=== PATIENT | female | born 1935 | race Caucasian/White ===

== ENCOUNTER → 2017-01-28 | Outpatient (CLI) | payer MEDICARE ==
--- NOTE | 2017-01-28 16:05 | CT ---
EXAMINATION TYPE: CT facial bones wo con DATE OF EXAM: 01/28/2017 3:47 PM COMPARISON: NONE HISTORY: Patient complains of fall hitting right side of face. Patient has multiple contusions from jaw to forehead. Patient has laceration of her eyelid. CT DLP: 763 mGycm Automated exposure control for dose reduction was used. TECHNIQUE: CT scan of the sinuses is performed without contrast, axial images are obtained, coronal r eformatted images are also reviewed. FINDINGS: The paranasal sinuses including the frontal, ethmoid, sphenoid, and maxillary sinuses bila terally are well-aerated, only minimal inflammatory change present in the right maxillary sinus great er than left. The ostiomeatal complex is patent bilaterally on the coronal images. Visualized portion of mastoid air cells show no abnormal opacification. The globes are intact bilate rally. Right frontal cephalohematoma is present. Cortical atrophy noted within the brain. Ecchymosis or edema thought present over the frontal scalp and face. IMPRESSION: No depressed or displaced fracture is evident. Cephalohematoma. Mild maxillary sinus dise ase. Orbits appear intact.
== END | disposition home or self-care (01) ==
LOC: RADCTMAIN 15:28
PROVIDERS: ATTEND Ophthalmology
DX: S06.2X9A Diffuse traumatic brain injury with loss of consciousness of unspecified duration, initial encounter (principal)
CPT/HCPCS: 70486

== ENCOUNTER 2017-01-29 06:47 | Day surgery (SDC) | payer MEDICARE ==
[2017-01-29 07:59] VITALS: BMI 29.4
[2017-01-29] MEDS ORDERED: HYDROmorphone 1 MG/ML 1 ML SYRINGE IVP PRN (08:01)
[2017-01-29] MEDS ORDERED: ONDANSETRON 4 MG/2 ML VIAL IVP ONE (08:01)
[2017-01-29] MEDS ORDERED: LACTATED RINGERS 1,000 ML IV SCH (08:01)
[2017-01-29 08:24] VITALS: RESP 16; TEMP 97.5
[2017-01-29] MEDS ORDERED: LIDOCAINE 1% 20 ML VIAL (10MG/ML) FOR IV START INTRADERMA ONE (08:24)
[2017-01-29] MEDS ORDERED: MIDAZOLAM 2 MG/2 ML VIAL ONE (09:04)
[2017-01-29] MEDS ORDERED: fentaNYL (PF) 50 MCG/ML 2 ML AMP ONE (09:04)
[2017-01-29] MEDS ORDERED: LABETALOL 5 MG/ML VIAL MDV ONE (09:04)
[2017-01-29] MEDS ORDERED: BUPIVACAIN-EPI 0.25%-1:200,000 30 ML VIAL SQ ONE ×2 (09:19)
[2017-01-29] MEDS ORDERED: TETRACAINE 0.5% OPHTH DROPS 15 ML BTL RIGHT EYE ONE (09:26)
[2017-01-29] MEDS ORDERED: NEOMYCIN-POLYMYXIN-DEXAMETH OINT 3.5 GM TUBE RIGHT EYE ONE (10:28)
--- NOTE | 2017-01-29 10:32 | P.OP ---
Date of Procedure: 01/29/17 Preoperative Diagnosis: traumatic lid laceration upper & lower without canilcular involvement Postoperative Diagnosis: same Procedure(s) Performed: repair upper and lower right eye lids Implants: none Anesthesia: MAC, regional Surgeon: Bassam Paris Estimated Blood Loss (ml): 3 Pathology: none sent Condition: stable Disposition: same day Indications for Procedure: poorly functioning torn eyelids Operative Findings: no complications
[2017-01-29 11:25] VITALS: BP 155/70; PULSE 57
--- NOTE | 2017-01-30 08:00 | OP ---
DATE OF SERVICE: 01/29/2017 SURGEON: CAMILLE NOBLE MD OFFICE SPEC: PREOPERATIVE DIAGNOSIS(ES): Traumatic full thickness laceration of the right upper eyelid and full thickness lid laceration of the right lower eyelid all without canalicular involvement. POSTOPERATIVE DIAGNOSIS(ES): Traumatic full thickness laceration of the right upper eyelid and full thickness lid laceration of the right lower eyelid all without canalicular involvement. OPERATION: Repair of right upper eyelid and repair of right lower eyelid. ANESTHESIA: Local. ESTIMATED BLOOD LOSS: Less than 5 mL. SPECIMENS REMOVED: None. COMPLICATIONS: OPERATIVE FINDINGS: NARRATIVE: A patient who had fallen and struck her right brow and while falling apparently lacerated both upper and lower eyelids of the right eye apparently against a table. CT scan of the face did not reveal any damage to any of the facial bones. Examination in the clinic revealed the lower lid to be atrophic and disinserted from the lateral canthus, approximately 5 mm from the lateral canthus. The upper lid was lacerated distal to the upper punctum and this laceration was approximately 1 cm in length and was in a Y-shaped fashion. Recommendation was to proceed to surgery so that there were not any half-way problems created by the newly induced malformation of lacerated eyelids. DESCRIPTION OF PROCEDURE: Patient was brought to the operating room after obtaining the appropriate consent. She was placed on cardiac monitoring, and prepped and draped in the usual sterile manner. 0.5% tetracaine was used on the eye to anesthetize the eye itself and the upper and lower eyelids were both infiltrated with 0.25% bupivacaine and epinephrine using a 26-gauge needle on a control syringe. Once the tissues were adequately anesthetized, closer examination of the right upper eyelid was performed. There was no involvement of the levator apparatus at all in the upper laceration. The extent of the actual tarsal problem extended no more than about 3 to 5 mm but the skin itself was lacerated more superiorly. During the procedure, a 6-0 silk suture was used to approximate the lid margin using Relends line as a guide. Once this was identified, a small amount of undermining of the orbicularis gain a better access to the tarsus was performed. Four 7-0 Vicryl sutures were placed through both cut ends of the tarsus in an attempt to align them more effectively. These were all individually tied reapproximating the tarsus itself together. The lid margin suture was then passed in a vertical mattress fashion back through the Relends line and across to the opposite side of the wound so that the entrance and exit sutures were able to be tied on the same side. The Y-shaped skin laceration was then reapproximated stretching the cut tissue back into its bed matching all corresponding edges using a 6-0 nylon suture. Once this was completed, then a second 6-0 silk was passed through the lash line itself and the 6-0 silk which had previously been passed through the lid margin was then secured tightly. The suture was left long and brought across the superior eye lid to be incorporated into the suture that was through the lash line itself. Once the 6-0 at the lash line was secured all sutures were trimmed. A second examination of the underside of the conjunctiva did not reveal any suture which may have been exposed to the eyeball surface. Attention then was directed to the lateral canthal area of the same right eye and again in a similar fashion Relends line was identified and a 6-0 silk was passed through Relends line and tarsus to its matching corresponding part of the laceration on the distal side realigning the lid margin. Once this was accomplished, 3 interrupted 7-0 Vicryl sutures were passed through tarsus itself. These were all individually tied and secured bringing the edges of the cut tarsus back together. The 6-0 nylon was used to close the skin laceration again reapproximating corresponding edges of the skin and a separate 6-0 silk was passed through the lash line itself. Once again on the lid margin suture was tied and secured bringing the edge together and the suture was cut long so that when the 6-0 suture to the lash line itself was secured the lid margin suture was secured in the lash line. The previously placed corneal shell was removed from the patient's eye. The inside of the lower eyelid was examined for exposed suture mucosal side. None was identified. The eye was cleaned slightly with sponge and balanced salt solution and then the eye both inside as well as on the lash line was covered copiously with Maxitrol ointment. No patch was applied to the eye. She tolerated the procedure well. There were no complications from the procedure and she was then returned to recovery in good condition.
== END 2017-01-29 11:47 | disposition home or self-care (01) ==
LOC: OR 06:47
PROVIDERS: ATTEND Ophthalmology
DX: S01.111A Laceration without foreign body of right eyelid and periocular area, initial encounter (principal); S00.83XA Contusion of other part of head, initial encounter; W19.XXXA Unspecified fall, initial encounter; H52.13 Myopia, bilateral; I10 Essential (primary) hypertension; E78.5 Hyperlipidemia, unspecified; Z79.899 Other long term (current) drug therapy
CPT/HCPCS: 12011; J2250; J3010

== ENCOUNTER 2019-04-21 09:58 | Day surgery (SDC) | payer MEDICARE ==
[2019-04-16 14:13] VITALS: BMI 30.1
[~2019-04-21 09:58] MED LIST: LACTATED RINGERS 1,000 ML IV SCH; LIDOCAINE 1% 20 ML VIAL (10MG/ML) FOR IV START INTRADERMA PRN; MOXIFLOXACIN HCL 0.5% DROPS 3 ML BTL OP ONE; TETRACAINE 0.5% OPHTH (PF) DROPS 4 ML BTL OP ONE; TIMOLOL 0.5% OPHTH DROPS 5 ML BTL OP ONE
[2019-04-21 10:26] VITALS: TEMP 97.6
[2019-04-21] MEDS: PHENYLEPHRINE 2.5% OPHTH DRP 2ML OP NR ×3 (10:28→10:41)
[2019-04-21] MEDS: CYCLOPENTOLATE 1% OPHTH SOLN 2 ML BTL OP ONE ×3 (10:31→10:44)
[2019-04-21] MEDS ORDERED: fentaNYL (PF) 50 MCG/ML 2 ML AMP ONE (11:20)
[2019-04-21] MEDS ORDERED: MIDAZOLAM 2 MG/2 ML VIAL ONE (11:20)
[2019-04-21] MEDS ORDERED: DUOVISC KIT (GREEN BOX) INTRAOCULA ONE (11:37)
[2019-04-21] MEDS ORDERED: BALANCED SALT IRRIG SOLN COMB2 15 ML IRRIG.SOLN INTRAOCULA ONE (11:37)
[2019-04-21] MEDS ORDERED: LIDOCAINE 1% (PF) 10MG/ML VIAL INTRAARTIC ONE (11:37)
[2019-04-21] MEDS ORDERED: TRYPAN BLUE 0.06% SYRINGE 0.5 ML SYRINGE INTRAOCULA ONE (11:38)
[2019-04-21] MEDS ORDERED: EPINEPHrine (PF) 0.3 ML in BALANCED SALT IRRIG SOLN COMB2 500 ML IRRIGATION ONE (11:49)
--- NOTE | 2019-04-21 11:55 | P.OP ---
Date of Procedure: 04/21/19 Preoperative Diagnosis: NS & CS Postoperative Diagnosis: same Procedure(s) Performed: PIOL & iStent implant Implants: PCB00 21.00 & [id number] Anesthesia: MAC Surgeon: Bassam Paris Estimated Blood Loss (ml): 0 Pathology: none sent Condition: stable Disposition: same day Indications for Procedure: blurry vision and glaucoma Operative Findings: no complications
[2019-04-21 12:48] VITALS: BP 169/67; PULSE 53; RESP 18
--- NOTE | 2019-04-21 15:23 | OP ---
OPERATIVE REPORT DATE OF SURGERY: 04/21/2019. PROCEDURE: Phacoemulsification cataract, intraocular lens implant with eye stent implantation of the right eye. PREOPERATIVE DIAGNOSES: 1. Nuclear sclerosis. 2. Cortical sclerosis. 3. Primary open-angle glaucoma, moderate stage. SURGEON: Dr. Bassam Paris. ANESTHESIA: Topical. ESTIMATED BLOOD LOSS: Less than 5 mL. SPECIMEN TAKEN: None. NARRATIVE: After obtaining the appropriate consent, the patient was brought to the operating room. There she was placed on a cardiac monitoring, prepped and draped in usual sterile manner. She was approached from her right temporal side and at the 11 o'clock position an MVR blade was used to create a paracentesis port. Through this opening 1% xylocaine MPF 50-50 mix with balanced salt solution was injected into the anterior chamber. This was followed by staining of the anterior chamber tissues with tri rivas blue for 1 minute. Once this was irrigated away, Viscoat was used to stabilize the anterior chamber as well as a small amount of Viscoat placed on the patient's cornea to act as an optical inspector subassemblies. At the 9 o'clock position, a 2.5 mm keratome was used to create a self-sealing corneal flap incision. The patient was then asked to rotate approximately 45 degrees to her left. Shaina goneal prism was placed on the patient's eye and the trabecular meshwork was easily identified. A Glaukos iStent model GTS 100 mL was placed into the trabecular meshwork without difficulty. The patient was then rotated back to the normal supine position where a cystotome was introduced to begin a continuous tear capsulorrhexis which was then completed using the Utrata forceps. Hydrodissection and hydrodelineation of the lens was accomplished with balanced salt solution. Phacoemulsification lens utilizing phaco chop was accomplished in 15.73 seconds of 14% power. Additional xylocaine MPF was instilled into the anterior chamber. This was followed by removal of the remaining cortex under irrigation and aspiration along with careful polishing of the posterior capsule in the capsule vacuum mode. Provisc was then used to stabilize the capsular bag and an ZURI PCB00 21.0 diopter posterior chamber intraocular lens was then placed into the capsular bag without difficulty. The remaining viscoelastic was removed from in and around the intra-ocular lens and as well as the anterior chamber. The eye then was brought to normal intraocular pressures through the paracentesis port, well ensuring watertight integrity. She then received 2 drops of 0.5% timolol followed by 2 drops of Vigamox, was lightly patched and shielded in the usual manner. There were no complications from the procedure. She tolerated the procedure well and was returned to outpatient recovery in good condition. MMODL / LALYN: [id number] / MTDMary Kate
== END 2019-04-21 13:09 | disposition home or self-care (01) ==
LOC: OR 09:58
PROVIDERS: ATTEND Ophthalmology
DX: H25.11 Age-related nuclear cataract, right eye (principal); H40.1111 Primary open-angle glaucoma, right eye, mild stage; I25.10 Atherosclerotic heart disease of native coronary artery without angina pectoris; I10 Essential (primary) hypertension; Z79.899 Other long term (current) drug therapy; Z83.3 Family history of diabetes mellitus; Z82.49 Family history of ischemic heart disease and other diseases of the circulatory system; Z84.89 Family history of other specified conditions

== ENCOUNTER 2021-07-10 15:45 | Inpatient (IN) | payer MEDICARE ==
[2021-07-10] MEDS ORDERED: AMPICILLIN-SULBACTAM 3 GM in SODIUM CHLORIDE 0.9% 100 ML IVPB STA (17:12)
[2021-07-10] MEDS ORDERED: VANCOMYCIN IV PER PHARMACY 1 EACH MISC MISCELLANE PRN (17:12)
[2021-07-10] MEDS ORDERED: VANCOMYCIN 1,500 MG in SODIUM CHLORIDE 0.9% 250 ML IVPB STA (17:16)
[2021-07-10] MEDS ORDERED: IBUPROFEN 400 MG TAB PO PRN (17:34)
[2021-07-10] MEDS ORDERED: NALOXONE 0.4 MG/ML 1 ML VIAL IV PRN (17:34)
--- NOTE | 2021-07-10 17:34 | ED ---
Extremity Problem HPI - General Chief complaint: Extremity Problem,Nontraumatic Stated complaint: fall, foot pain Time Seen by Provider: 07/10/21 16:10 Source: patient Mode of arrival: wheelchair Limitations: no limitations - History of Present Illness Initial comments: Patient is an 86-year-old female with past medical history of hypertension, hyperlipidemia presents emergency room and as a transfer from [facility]. Patient states that for the past 3 weeks she has had a wound on her right third toe. She was ambulating when she accidentally stubbed the toe and took off the nail. She was seen in Dr. bhandari's office and was placed on Cipro. She states that she took it for 7 days without improvement in her symptoms. Patient was then placed on Augmentin for 10 days starting on the . She saw Dr. bhandari in office today who was concerned about the progression of her wound and therefore recommend that she went to the hospital for evaluation. She went and [facility] weren't x-ray was performed and demonstrated concern for o steomyelitis. Admission was recommended for failed outpatient treatment. Patient was transferred to our facility has a do not have surgical capabilities. No history of diabetes. Denies fevers, chills. Denies any numbness, tingling or weakness in the extremities. No other alleviating, precipitating or modifying factors - Related Data Home Medications Medication Instructions Recorded Confirmed Lovastatin [Mevacor] 10 mg PO HS 11/29/14 07/10/21 atenoloL [Tenormin] 25 mg PO HS 11/29/14 07/10/21 Cholecalciferol [Vitamin D3] 25 mcg PO DAILY 09/01/16 07/10/21 Allergies Allergy/AdvReac Type Severity Reaction Status Date / Time adhesive Allergy Rash/Hives Verified 07/10/21 18:01 Review of Systems ROS Statement: Those systems with pertinent positive or pertinent negative responses have been documented in the HPI. ROS Other: All systems not noted in ROS Statement are negative. Past Medical History Past Medical History: Coronary Artery Disease (CAD), Eye Disorder, Hyperlipidemia, Hypertension Additional Past Medical History / Comment(s): rt cataract,rt eye glaucoma History of Any Multi-Drug Resistant Organisms: None Reported Past Surgical History: Heart Catheterization With Stent, Joint Replacement, Orthopedic Surgery Additional Past Surgical History / Comment(s): 1997 or 1998 R carotid endartectomy in [place]. 1997 or 1998 cardiac cath with stenting in [place]. Bilateral hip replacements and total R knee,lt cataract and istent Past Anesthesia/Blood Transfusion Reactions: No Reported Reaction Additional Past Anesthesia/Blood Transfusion Reaction / Comment(s): no problems with prior blood transfusion Date of Last Stent Placement:: 1997 or 1998 in [place] Past Psychological History: No Psychological Hx Reported Past Alcohol Use History: None Reported Past Drug Use History: None Reported - Past Family History Father Family Medical History: Myocardial Infarction ([place]) Additional Family Medical History / Comment(s): Father at age 62 yrs of [place]. Mother Family Medical History: Diabetes Mellitus Additional Family Medical History / Comment(s): Mother of an impacted bowel at age 82 or 83yrs. General Exam Limitations: no limitations General appearance: alert, in no apparent distress Head exam: Present: atraumatic, normocephalic, normal inspection Eye exam: Present: normal appearance, PERRL, EOMI. Absent: scleral icterus, conjunctival injection, periorbital swelling ENT exam: Present: normal exam, mucous membranes moist Neck exam: Present: normal inspection. Absent: tenderness, meningismus, lymphadenopathy Respiratory exam: Present: normal lung sounds bilaterally. Absent: respiratory distress, wheezes, rales, rhonchi, stridor Cardiovascular Exam: Present: regular rate, normal rhythm, normal heart sounds. Absent: systolic murmur, diastolic murmur, rubs, gallop, clicks GI/Abdominal exam: Present: soft, normal bowel sounds. Absent: distended, tende rness, guarding, rebound, rigid Extremities exam: Present: tenderness, normal capillary refill, other (3rd distal digit is swollen with distal ulceration. Toe nail is absent. no active drainage. Digits 1-2, 4-5 appear normal. 2+ DP and PT pusles). Absent: pedal edema, joint swelling, calf tenderness Back exam: Present: normal inspection Neurological exam: Present: alert, oriented X3, CN II-XII intact Psychiatric exam: Present: normal affect, normal mood Skin exam: Present: warm, dry, intact, normal color. Absent: rash Course Vital Signs 07/10/21 07/10/21 07/10/21 16:06 19:01 19:25 Temperature 98.1 F Pulse Rate 69 72 Respiratory 19 18 18 Rate Blood Pressure 183/77 215/105 O2 Sat by Pulse 97 96 Oximetry 07/10/21 23:03 Temperature 98.0 F Pulse Rate 60 Respiratory 16 Rate Blood Pressure 132/53 O2 Sat by Pulse 94 L Oximetry Medical Decision Making - Medical Decision Making Upon arrival the patient was placed into room 4. A thorough history and physical exam was performed. I did review the patient's record from [facility]. The patient is failing outpatient treatment I did recommend admission. Patient was given a dose of Unasyn and Vanco in the emergency department. I did call and speak with Dr. Perez who agreed to admit the patient. I will place vascular and wound care on consult. Patient agreed to the treatment plan and she is currently awaiting a bed on the floor - Lab Data Result diagrams: 07/14/21 07:38 07/14/21 07:38 Disposition Clinical Impression: Osteomyelitis of toe of right foot Disposition: ADMITTED IP TO THIS [facility] Condition: Stable Is patient prescribed a controlled substance at d/c from ED?: No Decision to Admit Reason: Admit from EC Decision Date: 07/10/21 Decision Time: 17:33
[2021-07-10 18:35] LABS: Basophils # (A) 0.1 k/uL (0-0.2); Basophils % (A) 1 %; Eosinophils # (A) 0.2 k/uL (0-0.7); Eosinophils % (A) 3 %; HGB 14.2 gm/dL (11.4-16.0); Hypochromasia Slight; Lymphocytes % (A) 25 %; MCH 29.7 pg (25.0-35.0); MCHC 33.1 g/dL (31.0-37.0); MCV 89.7 fL (80.0-100.0); Mean Platelet Volume 7.8; Monocytes # (A) 0.4 k/uL (0-1.0); Monocytes % (A) 5 %; Neutrophils # (A) 4.9 k/uL (1.3-7.7); Neutrophils % (A) 63 %; Platelet Count 381 k/uL (150-450); RBC 4.79 m/uL (3.80-5.40); RDW 14.4 % (11.5-15.5); WBC 7.8 k/uL (3.8-10.6)
[2021-07-10 18:44] LABS: ALT 12 U/L (4-34); AST 16 U/L (14-36); African American GFR (CKD) >90 (>60 ml/min/1.73 sqM); Albumin 3.9 g/dL (3.5-5.0); Alkaline Phosphatase 88 U/L (38-126); Anion Gap 9 mmol/L; Blood Urea Nitrogen 11 mg/dL (7-17); Calcium 9.8 mg/dL (8.4-10.2); Carbon Dioxide 25 mmol/L (22-30); Chloride 101 mmol/L (98-107); Glucose 372 mg/dL (74-99); Non-African American GFR(CKD) >90 (>60 ml/min/1.73 sqM); Potassium 4.1 mmol/L (3.5-5.1); Sodium 135 mmol/L (137-145); Total Bilirubin 0.5 mg/dL (0.2-1.3); Total Protein 6.7 g/dL (6.3-8.2)
[2021-07-10] MEDS ORDERED: atenoloL 25 MG TAB PO STA (19:08)
[2021-07-10] MEDS: ATORVASTATIN 10 MG TAB PO SCH (19:22)
[2021-07-11] MEDS: hydrALAZINE HCL 20 MG/ML 1 ML VIAL IVP PRN ×3 (02:08→16:37)
[2021-07-11] MEDS: VANCOMYCIN 1,500 MG in SODIUM CHLORIDE 0.9% 250 ML IVPB SCH ×2 (05:34→17:44)
[2021-07-11 09:09] LABS: Basophils # (A) 0.07 X 10*3/uL (0.00-0.10); Basophils % (A) 0.9 %; Eosinophils # (A) 0.26 X 10*3/uL (0.04-0.35); Eosinophils % (A) 3.4 %; HCT 39.2 % (37.2-46.3); HGB 12.7 g/dL (12.0-15.0); Lymphocytes # (A) 1.59 X 10*3/uL (0.90-5.00); Lymphocytes % (A) 21.1 %; MCH 27.6 pg (27.0-32.0); MCHC 32.4 g/dL (32.0-37.0); MCV 85.2 fL (80.0-97.0); Monocytes # (A) 0.57 X 10*3/uL (0.20-1.00); Monocytes % (A) 7.6 %; Neutrophils # (A) 5.03 X 10*3/uL (1.80-7.70); Neutrophils % (A) 66.7 %; Platelet Count 381 X 10*3/uL (140-440); RDW 13.2 % (11.5-14.5); WBC 7.54 X 10*3/uL (4.50-10.00)
--- NOTE | 2021-07-11 09:54 | P.GSCN ---
History of Present Illness Consult date: 07/11/21 Reason for Consult: right 3rd toe osteomyelitis Requesting physician: Sumaya Harmon History of present illness: This is a 86-year-old female who was a transfer from [facility]. The patient states she injured her toe 3 weeks ago on her right foot which caused a blood blister and subsequently lost her toenail on her right third toe. She had seen her primary care physician who started her on antibiotics which she completed. She was told to go to the emergency department for further evaluation and according to the emergency department notes x-rays were done and showing osteomyelitis of the second and third toe. Records are not available at this time and are being requested. The patient denies any foul odor, fevers, or chills. States she has been on both Cipro and Augmentin. She was transferred to this hospital for vascular surgical evaluation. Patient states she does not have much pain in that toe. She has no previous history of peripheral arterial disease, she is a nonsmoker and never smoked, denies any diabetes. Her past medical history includes coronary artery disease status post stent, hyperlipidemia, hypertension, and glaucoma. She is denying any shortness of breath, chest pain, abdominal pain or leg pain. She states that she does have pain on the bottom of her right foot that she had an injury to the tendon and it is still painful and swollen. Review of Systems A 14 point review of systems was completed, all pertinent positives and negatives as stated in the HPI Past Medical History Past Medical History: Coronary Artery Disease (CAD), Eye Disorder, Hyperlipidemia, Hypertension Additional Past Medical History / Comment(s): rt cataract,rt eye glaucoma History of Any Multi-Drug Resistant Organisms: None Reported Past Surgical History: Heart Catheterization With Stent, Joint Replacement, Orthopedic Surgery Additional Past Surgical History / Comment(s): 1997 or 1998 R carotid endartectomy in [place]. 1997 or 1998 cardiac cath with stenting in [place]. Bilateral hip replacements and total R knee,lt cataract and istent Past Anesthesia/Blood Transfusion Reactions: No Reported Reaction Additional Past Anesthesia/Blood Transfusion Reaction / Comm: no problems with prior blood transfusion Date of Last Stent Placement:: 1997 or 1998 in [place] Past Psychological History: No Psychological Hx Reported Past Alcohol Use History: None Reported Past Drug Use History: None Reported - Past Family History Father Family Medical History: Myocardial Infarction ([place]) Additional Family Medical History / Comment(s): Father at age 62 yrs of [place]. Mother Family Medical History: Diabetes Mellitus Additional Family Medical History / Comment(s): Mother of an impacted bowel at age 82 or 83yrs. Medications and Allergies Home Medications Medication Instructions Recorded Confirmed Type Lovastatin [Mevacor] 10 mg PO HS 11/29/14 07/10/21 History atenoloL [Tenormin] 25 mg PO HS 11/29/14 07/10/21 History Cholecalciferol [Vitamin D3] 25 mcg PO DAILY 09/01/16 07/10/21 History Allergies Allergy/AdvReac Type Severity Reaction Status Date / Time adhesive Allergy Rash/Hives Verified 07/10/21 18:01 Surgical - Exam Vital Signs Temp Pulse Resp BP Pulse Ox 98.1 F 69 19 183/77 97 07/10/21 16:06 07/10/21 16:06 07/10/21 16:06 07/10/21 16:06 07/10/21 16:06 General appearance: The patient is alert, oriented, in no acute distress. HET: Head is normocephalic and atraumatic. Pupils are equal and reactive. Neck: Supple without lymphadenopathy. Trachea midline. Heart: S1 S2. Regular rate and rhythm. Lungs: Clear to auscultation. Abdomen: Soft, nontender, nondistended. Extremities: Left lower extremity with palpable dorsalis pedis pulse, no edema. Right lower extremity with +2 pitting pedal edema, erythema to the dorsal aspect up to the mid foot, third toe with wound to distal aspect, no drainage or foul odor noted Neurological: No focal deficits. Strength and sensation are grossly intact. Results - Labs 07/11/21 05:27 07/11/21 05:27 Abnormal Lab Results - Last 24 Hours (Table) 07/10/21 Range/Units 18:22 Sodium 135 L (137-145) mmol/L Creatinine 0.44 L (0.52-1.04) mg/dL Glucose 372 H (74-99) mg/dL Diabetes panel 07/10/21 Range/Units 18:22 Sodium 135 L (137-145) mmol/L Potassium 4.1 (3.5-5.1) mmol/L Chloride 101 (98-107) mmol/L Carbon Dioxide 25 (22-30) mmol/L BUN 11 (7-17) mg/dL Creatinine 0.44 L (0.52-1.04) mg/dL Glucose 372 H (74-99) mg/dL Calcium 9.8 (8.4-10.2) mg/dL AST 16 (14-36) U/L ALT 12 (4-34) U/L Alkaline Phosphatase 88 (38-126) U/L Total Protein 6.7 (6.3-8.2) g/dL Albumin 3.9 (3.5-5.0) g/dL Calcium panel 07/10/21 Range/Units 18:22 Calcium 9.8 (8.4-10.2) mg/dL Albumin 3.9 (3.5-5.0) g/dL Pituitary panel 07/10/21 Range/Units 18:22 Sodium 135 L (137-145) mmol/L Potassium 4.1 (3.5-5.1) mmol/L Chloride 101 (98-107) mmol/L Carbon Dioxide 25 (22-30) mmol/L BUN 11 (7-17) mg/dL Creatinine 0.44 L (0.52-1.04) mg/dL Glucose 372 H (74-99) mg/dL Calcium 9.8 (8.4-10.2) mg/dL Adrenal panel 07/10/21 Range/Units 18:22 Sodium 135 L (137-145) mmol/L Potassium 4.1 (3.5-5.1) mmol/L Chloride 101 (98-107) mmol/L Carbon Dioxide 25 (22-30) mmol/L BUN 11 (7-17) mg/dL Creatinine 0.44 L (0.52-1.04) mg/dL Glucose 372 H (74-99) mg/dL Calcium 9.8 (8.4-10.2) mg/dL Total Bilirubin 0.5 (0.2-1.3) mg/dL AST 16 (14-36) U/L ALT 12 (4-34) U/L Alkaline Phosphatase 88 (38-126) U/L Total Protein 6.7 (6.3-8.2) g/dL Albumin 3.9 (3.5-5.0) g/dL Assessment and Plan Assessment: 1. Nonhealing wound to third toe, right foot with possible osteomyelitis 2. Failed outpatient antibiotics 3. History of coronary artery disease status post stenting 4. History hypertension 5. History hyperlipidemia Plan: 1. Nothing by mouth after midnight 2. Consult infectious disease for antibiotic therapy 3. Patient will be scheduled for right foot third toe possible second toe debridement with deep tissue cultures tomorrow 4. Lower extremity arterial duplex ordered Thank you for this consultation and allowing us take part in the plan of care of your patient during her hospital stay. The impression and plan of care has been dictated as directed. I performed a history and examination of this patient, discussed the same with the dictator. I agree with the dictator's note ,documented as a scribe. Any additional findings or plans will be noted.
[2021-07-11 10:30] LABS: African American GFR (CKD) 95.7 (60.0-200.0); Anion Gap 8.3 mmol/L (4.00-12.00); BUN/Creat Ratio 18.33 Ratio (12.00-20.00); Calcium 9.6 mg/dL (8.7-10.3); Carbon Dioxide 26.7 mmol/L (21.6-31.8); Non-African American GFR(CKD) 82.5 (60.0-200.0); Potassium 3.9 mmol/L (3.5-5.5)
[2021-07-11 12:43] LABS: Glucose,Whole Blood 407 mg/dL (75-99)
[2021-07-11] MEDS: INSULIN ASPART (NovoLOG) 100 UNIT/ML VIAL SQ SCH ×3 (12:54→20:44)
[2021-07-11] MEDS ORDERED: INSULIN ASPART (NovoLOG) 100 UNIT/ML VIAL SQ ONE (13:00)
--- NOTE | 2021-07-11 13:48 | P.HPIM ---
History of Present Illness H&P Date: 07/11/21 Chief Complaint: Osteomyelitis This is an 86-year-old female patient of Dr. Hunt. Patient presented as a transfer from [facility] with concerns of osteomyelitis to her right third toe. Patient reports that she was ambulating when she had recently stopped her toe. Patient reports that she developed a huge blood blister and that her toenail fell off. Patient was seen in her PIPs office and was put on oral Cipro but symptoms did not improve. Patient returned her PCP who recommended she be evaluated in ER. X-ray was completed and [facility] showing ostial mellitus of the second and third toe. Patient has past medical history of hypertension and hyperlipidemia. Patient denies history of diabetes mellitus blood sugar was elevated at 372 upon admission. Will start patient on sliding scale coverage in order hemoglobin A1c patient also started on vancomycin and Unasyn in ER. Surgical services and infectious the service is consulted. Blood cultures ordered. At this time patient is resting comfortably in bed. Patient denies neck and pain to foot. Patient denies any chest pain or shortness of breath. Patient denies nausea vomiting or diarrhea Review of Systems please refer to HPI is unremarkable Past Medical History Past Medical History: Coronary Artery Disease (CAD), Eye Disorder, Hyperlipidemia, Hypertension Additional Past Medical History / Comment(s): rt cataract,rt eye glaucoma History of Any Multi-Drug Resistant Organisms: None Reported Past Surgical History: Heart Catheterization With Stent, Joint Replacement, Orthopedic Surgery Additional Past Surgical History / Comment(s): 1997 or 1998 R carotid endartectomy in [place]. 1997 or 1998 cardiac cath with stenting in [place]. Bilateral hip replacements and total R knee,lt cataract and istent Past Anesthesia/Blood Transfusion Reactions: No Reported Reaction Additional Past Anesthesia/Blood Transfusion Reaction / Comment(s): no problems with prior blood transfusion Date of Last Stent Placement:: 1997 or 1998 in [place] Past Psychological History: No Psychological Hx Reported Past Alcohol Use History: None Reported Past Drug Use History: None Reported - Past Family History Father Family Medical History: Myocardial Infarction ([place]) Additional Family Medical History / Comment(s): Father at age 62 yrs of [place]. Mother Family Medical History: Diabetes Mellitus Additional Family Medical History / Comment(s): Mother of an impacted bowel at age 82 or 83yrs. Medications and Allergies Home Medications Medication Instructions Recorded Confirmed Type Lovastatin [Mevacor] 10 mg PO HS 11/29/14 07/10/21 History atenoloL [Tenormin] 25 mg PO HS 11/29/14 07/10/21 History Cholecalciferol [Vitamin D3] 25 mcg PO DAILY 09/01/16 07/10/21 History Allergies Allergy/AdvReac Type Severity Reaction Status Date / Time adhesive Allergy Rash/Hives Verified 07/10/21 18:01 Physical Exam Vitals: Vital Signs Temp Pulse Pulse Resp BP BP Pulse Ox 07/11/21 09:19 97.8 F 66 16 184/74 96 07/11/21 08:27 64 184/74 07/11/21 02:00 98.2 F 64 14 177/79 94 L 07/11/21 00:06 98.3 F 62 18 149/53 95 07/10/21 23:03 98.0 F 60 16 132/53 94 L 07/10/21 19:25 18 07/10/21 19:01 72 18 215/105 96 07/10/21 16:06 98.1 F 69 19 183/77 97 Intake and Output 07/10/21 07/11/21 07/11/21 22:59 06:59 14:59 Intake Total 300 Balance 300 Intake: Oral 300 Other: Voiding Method Toilet Weight 77.111 kg Head normocephalic Neck supple Lungs clear to auscultation bilaterally no wheezing or crackles Heart regular rate and rhythm S1-S2, no rub or gallop Abdomen is soft nontender nondistended positive bowel sounds no hepatosplenomegaly Extremities no edema. Right third toe wound nail absent bloody drainage noted Neuro alert and orientated to 3 Results CBC & Chem 7: 07/11/21 05:27 07/11/21 05:27 Labs: Abnormal Lab Results - Last 24 Hours (Table) 07/10/21 07/11/21 07/11/21 Range/Units 18:22 05:27 12:34 Sodium 135 L (137-145) mmol/L Creatinine 0.44 L (0.52-1.04) mg/dL Glucose 372 H 236 H (74-99) mg/dL POC Glucose (mg/dL) 407 H (75-99) mg/dL Thrombosis Risk Factor Assmnt - Choose All That Apply Any of the Below Risk Factors Present?: No Each Risk Factor Represents 3 Points: Age 75 years or older Other congenital or acquired thrombophilia - If yes, enter type in comment: No Thrombosis Risk Factor Assessment Total Risk Factor Score: 3 Thrombosis Risk Factor Assessment Level: Moderate Risk Assessment and Plan Assessment: 1. Osteomyelitis to second and third toe. X-ray was completed at outside hospital. Infectious disease and vascular surgery consulted. Patient currently maintained on vancomycin and Unasyn. Blood cultures ordered 2. Hyperglycemia. Patient started on sliding scale coverage and hemoglobin A1c ordered. 3. History of hyperlipidemia. Maintained on statin 4. History of essential hypertension 5. History of coronary artery disease DVT prophylaxis Lovenox. GI prophylaxis Protonix Vascular surgery and infectious disease service is consulted Maintained on IV vancomycin and Unasyn Blood cultures ordered Hemoglobin A1c ordered Time with Patient: Greater than 30 (Greater than 60% of the total time spent in counseling and coordination of care)
[2021-07-11] MEDS ORDERED: LIDOCAINE 1% (10MG/ML) FOR IV START INTRADERMA PRN (16:20)
[2021-07-11] MEDS: ACETAMINOPHEN TAB 325 MG TAB PO PRN (16:41)
[2021-07-11 17:00] LABS: Glucose,Whole Blood 132 mg/dL (75-99)
[2021-07-11] MEDS: NYSTATIN 100,000UNIT/GM CREAM 30 GM TUBE TOPICAL SCH ×2 (17:47→23:09)
[2021-07-11 19:22] LABS: Hemoglobin A1C 11.2 % (4.0-6.0)
[2021-07-11 20:26] LABS: Glucose,Whole Blood 249 mg/dL (75-99)
[2021-07-11] MEDS: ATORVASTATIN 10 MG TAB PO SCH (20:44)
[2021-07-11] MEDS: atenoloL 25 MG TAB PO SCH (20:44)
[2021-07-12] MEDS ORDERED: VANCOMYCIN TROUGH DUE 1 EACH MISC MISCELLANE ONE (05:00)
[2021-07-12] MEDS ORDERED: DEXAMETHASONE SOD PHOSPHATE 4 MG/ML 1 ML VIAL IV ONE (06:00)
[2021-07-12] MEDS ORDERED: ONDANSETRON 4 MG/2 ML VIAL IVP ONE (06:00)
[2021-07-12] MEDS: LACTATED RINGERS 1,000 ML IV SCH ×2 (06:10→17:52)
--- NOTE | 2021-07-12 06:10 | P.CONS ---
History of Present Illness - Reason for Consult Consult date: 07/11/21 right 3rd toe osteomyelitis Requesting physician: Tiarra Dominguez - Chief Complaint right 3rd toe non heaing wound x weeks - History of Present Illness History of present illness : Patient is 86-year-old female who did have an injury to her right third toe 1 3 weeks ago patient did mention she did have a blood blister and subsequently diagnosed her toenail on the third toe patient has been seen by her primary care physician and has been treated with a course of antibiotics however the patient continued to have worsening of her right third toe with nonhealing of the wound with more swelling and did have some redness no foul-smelling drainage no patient did have underlying neuropathy and consistently significant pain to the right third toe area patient went to [facility] nausea worsening of right third toe patient apparently did have x-rays there is some history of osteomyelitis of the right third toe for the patient was transferred to the [facility] for further evaluation on arrival to the ER patient was afebrile patient did have a normal white count kidney function was normal patient has been evaluated by vascular surgery with the plan for possible partial amputation of the right third toe patient was started on vancomycin infectious disease was consulted for further management of antibiotic therapy Review of system: CONSTITUTIONAL: Positive for weakness however denies high-grade fever. EYES: No complaint. ENT: No complaint. RESPIRATORY: No complaint. CARDIOVASCULAR: No complaint. GENITOURINARY: No complaint. GASTROINTESTINAL: No complaint. MUSCULOSKELETAL: As per history of present illness. INTEGUMENTARY: As per history of present illness. PSYCHOLOGIC: No complaint. ENDOCRINE: No complaint. NEUROLOGIC: No complaint. Past medical history : Reviewed, documented below Past surgical history : Reviewed, documented below Social history: Reviewed, documented below Medications: Reviewed, as documented below GENERAL DESCRIPTION: Elderly female lying in bed, no distress. No tachypnea or accessory muscle of respiration use. HEENT: Shows Pallor , no scleral icterus. Oral mucous membrane is dry. NECK: Trachea central, no thyromegaly. LUNGS: Unlabored breathing. Clear to auscultation anteriorly. No wheeze or crackle. HEART: S1, S2, regular rate and rhythm. ABDOMEN: Soft, no tenderness , guarding or rigidity EXTREMITIES: No edema of feet. Right third toe is swollen minimal redness with the wound on the tip no slough tissue or foul-smelling drainage SKIN: No rash, no masses palpable. NEUROLOGICAL: The patient is awake, alert, oriented x3, mood and affect normal. LABS AND RADIOLOGY: Reviewed results see below Assessment : Patient with right third toe tip traumatic wound now with abnormal ity seen on the x-ray at the outside facility concerning for osteomyelitis in this patient who did have diffuse swelling minimal redness and nonhealing wound that seemed to have failed to respond to outpatient ciprofloxacin and Augmentin therapy and concern for possible community associated MRSA Plan: 1-await partial amputation of the right third toe and deep cultures as per vascular surgery 2-vancomycin pharmacy to dose her with a target trough of 15 while watching her kidney function and Vanco trough closely. 3-Aquacel silver dressing to the wound change every 48 hour We will follow on clinical condition and cultures to further adjust medication if needed Thank you for this consultation we will follow the patient along with you Past Medical History Past Medical History: Coronary Artery Disease (CAD), Eye Disorder, Hyperlipidemia, Hypertension Additional Past Medical History / Comment(s): rt cataract,rt eye glaucoma History of Any Multi-Drug Resistant Organisms: None Reported Past Surgical History: Heart Catheterization With Stent, Joint Replacement, Orthopedic Surgery Additional Past Surgical History / Comment(s): 1997 or 1998 R carotid endartectomy in [place]. 1997 or 1998 cardiac cath with stenting in [place]. Bilateral hip replacements and total R knee,lt cataract and istent Past Anesthesia/Blood Transfusion Reactions: No Reported Reaction Additional Past Anesthesia/Blood Transfusion Reaction / Comm: no problems with prior blood transfusion Date of Last Stent Placement:: 1997 or 1998 in [place] Past Psychological History: No Psychological Hx Reported Past Alcohol Use History: None Reported Past Drug Use History: None Reported - Past Family History Father Family Medical History: Myocardial Infarction ([place]) Additional Family Medical History / Comment(s): Father at age 62 yrs of [place]. Mother Family Medical History: Diabetes Mellitus Additional Family Medical History / Comment(s): Mother of an impacted bowel at age 82 or 83yrs. Medications and Allergies Home Medications Medication Instructions Recorded Confirmed Type Lovastatin [Mevacor] 10 mg PO HS 11/29/14 07/10/21 History atenoloL [Tenormin] 25 mg PO HS 11/29/14 07/10/21 History Cholecalciferol [Vitamin D3 (25 25 mcg PO DAILY 09/01/16 07/10/21 History Mcg = 1000 Iu)] Amoxic-Pot Clav 875-125Mg 1 tab PO Q12HR 14 Days #28 tab 07/16/21 Rx [Augmentin 875-125] Nystatin 100,000Unit/gm Cream 1 applic TOPICAL TID gm 07/17/21 Rx [Mycostatin Cream] Pioglitazone [Actos] 30 mg PO DAILY tab 07/17/21 Rx metFORMIN HCL [Glucophage] 500 mg PO BID-W/MEALS tab 07/17/21 Rx Allergies Allergy/AdvReac Type Severity Reaction Status Date / Time adhesive Allergy Rash/Hives Verified 07/10/21 18:01 Physical Exam Vitals: Vital Signs Temp Pulse Pulse Resp BP BP Pulse Ox 07/11/21 09:19 97.8 F 66 16 184/74 96 07/11/21 08:27 64 184/74 07/11/21 02:00 98.2 F 64 14 177/79 94 L 07/11/21 00:06 98.3 F 62 18 149/53 95 07/10/21 23:03 98.0 F 60 16 132/53 94 L 07/10/21 19:25 18 07/10/21 19:01 72 18 215/105 96 07/10/21 16:06 98.1 F 69 19 183/77 97 Intake and Output 07/10/21 07/11/21 07/11/21 22:59 06:59 14:59 Intake Total 300 Balance 300 Intake: Oral 300 Other: Voiding Method Toilet Weight 77.111 kg Results CBC & Chem 7: 07/17/21 05:26 07/17/21 05:26 Labs: Abnormal Lab Results - Last 24 Hours (Table) 07/10/21 07/11/21 07/11/21 Range/Units 18:22 05:27 12:34 Sodium 135 L (137-145) mmol/L Creatinine 0.44 L (0.52-1.04) mg/dL Glucose 372 H 236 H (74-99) mg/dL POC Glucose (mg/dL) 407 H (75-99) mg/dL
[2021-07-12] MEDS ORDERED: fentaNYL (PF) 50 MCG/ML 2 ML AMP IV PRN (07:00)
[2021-07-12] MEDS ORDERED: HYDROmorphone 0.5 MG/0.5 ML SYRINGE IVP PRN ×2 (07:00→10:47)
[2021-07-12] MEDS: VANCOMYCIN 1,500 MG in SODIUM CHLORIDE 0.9% 250 ML IVPB SCH ×2 (07:05→18:04)
[2021-07-12 07:14] LABS: Glucose,Whole Blood 223 mg/dL (75-99)
[2021-07-12] MEDS: INSULIN ASPART (NovoLOG) 100 UNIT/ML VIAL SQ SCH ×4 (07:39→21:45)
[2021-07-12] MEDS: PANTOPRAZOLE 40 MG TABLET PO SCH (07:39)
[2021-07-12 08:04] LABS: ALT 8 U/L (4-34); AST 15 U/L (14-36); African American GFR (CKD) >90 (>60 ml/min/1.73 sqM); Albumin 2.8 g/dL (3.5-5.0); Albumin/Globulin Ratio 1.1; Alkaline Phosphatase 69 U/L (38-126); Anion Gap 6 mmol/L; Blood Urea Nitrogen 14 mg/dL (7-17); Calcium 8.9 mg/dL (8.4-10.2); Carbon Dioxide 24 mmol/L (22-30); Chloride 105 mmol/L (98-107); Globulin 2.6 g/dL; Glucose 252 mg/dL (74-99); Non-African American GFR(CKD) >90 (>60 ml/min/1.73 sqM); Potassium 3.8 mmol/L (3.5-5.1); Sodium 135 mmol/L (137-145); Total Bilirubin 0.6 mg/dL (0.2-1.3); Total Protein 5.4 g/dL (6.3-8.2)
[2021-07-12] MEDS: ENOXAPARIN 40 MG/0.4 ML SYRINGE SQ SCH (08:09)
--- NOTE | 2021-07-12 09:13 | XR ---
EXAMINATION TYPE: XR foot complete RT DATE OF EXAM: 07/12/2021 CLINICAL HISTORY: Nonhealing wound right third toe. Pain and swelling. TECHNIQUE: Frontal, lateral, and oblique images of the right foot are obtained. COMPARISON: Outside right foot x-ray June 30, 2021 FINDINGS: There is interval near complete destruction of the third distal phalanx. There is new luce ncy and bony destruction of the third middle phalanx. Relative sparing of the proximal phalanx. Some flexion in the toes makes evaluation suboptimal. No obvious osseous destruction in the fourth an d fifth toes. Persistent deformity of the second distal phalanx without new obstruction clearly seen. Persistent focal soft tissue swelling greatest in the second and third toes. Moderate narrowing and sclerosis at the base of the Lisfranc joints seen best on lateral view. Mild-t o-moderate diffuse soft tissue swelling noted. IMPRESSION: There is radiographic confirmation of acute osteomyelitis involving third middle and dis west phalanx as detailed above. A Yellow level critical message alert has been initiated for Tiarra Dominguez via the [facility] Critical Results System on 07/12/2021 9:11 AM. This message alert has been sent to Tiarra Dominguez v ia the preferences provided by the clinician for the receipt of Radiology Critical Findings. Message ID [id number].
[2021-07-12 09:46] LABS: Basophils # (A) 0.07 X 10*3/uL (0.00-0.10); Eosinophils # (A) 0.29 X 10*3/uL (0.04-0.35); HCT 37.3 % (37.2-46.3); Lymphocytes # (A) 1.75 X 10*3/uL (0.90-5.00); Lymphocytes % (A) 24.1 %; MCH 27.8 pg (27.0-32.0); MCHC 32.2 g/dL (32.0-37.0); MCV 86.3 fL (80.0-97.0); Mean Platelet Volume 10.3 fL (9.5-12.2); Monocytes # (A) 0.61 X 10*3/uL (0.20-1.00); Monocytes % (A) 8.4 %; Neutrophils % (A) 61.9 %; Platelet Count 362 X 10*3/uL (140-440); RBC 4.32 X 10*6/uL (4.10-5.20); RDW 13.3 % (11.5-14.5); WBC 7.26 X 10*3/uL (4.50-10.00)
[2021-07-12] MEDS: NYSTATIN 100,000UNIT/GM CREAM 30 GM TUBE TOPICAL SCH ×3 (10:30→21:50)
--- NOTE | 2021-07-12 11:15 | P.CONS ---
History of Present Illness - Reason for Consult Consult date: 07/12/21 wound care - History of Present Illness His is an 86-year-old female who was transferred from [facility] being seen on 4 cells for a nonhealing ulceration with positive osteo-to the right third toe. Patient was seen by her primary care physician who started her on antibiotics which she completed. However the toe had not improved and she went to the emergency room. At that time an x-ray showed osteomyelitis and she was transferred to [facility]. The patient denies any foul odor, fever or chills. She has completed both Cipro and Augmentin courses. Patient is a lifelong nonsmoker. Denies diabetes. Her past medical history includes coronary artery disease status post stent, hyperlipidemia, hypertension, and Glaucoma. The right third toe distal aspect has an ulceration measuring approximately 1 x 1.7 x 0.1 cm. There is minimal to no granulation seen, periwound is flaking off. There is a eschar distal portion. Review Of Systems: Constitutional: No fever, no chills, no night sweats. No weight change. No weakness, fatigue or lethargy. No daytime sleepiness. Integumentary:reports wounds, no lesions. No rash or pruritus. No unusual bruising. No change in hair or nails. Physical exam: General Appearance: Alert, cooperative, no distress, appears stated age. Skin: See HPI all other Skin color, texture, tugor normal, no rashes or lesions. Neurologic: Alert oriented x3 Assessment: 1. Nonhealing ulceration to third toe with bone involvement with necrosis 2. Osteo-myelitis Plan: 1. Discussed with patient options for continued outpatient wound care treatment including hyperbaric oxygen therapy. No dressings ordered at this time until after surgical intervention. Thank you for the consultation any questions please contact the wound care center DNP note has been reviewed and discussed with Dr. Solis and the impression and plan of care has been directed as dictated. Past Medical History Past Medical History: Coronary Artery Disease (CAD), Eye Disorder, Hyperlipidemia, Hypertension Additional Past Medical History / Comment(s): rt cataract,rt eye glaucoma History of Any Multi-Drug Resistant Organisms: None Reported Past Surgical History: Heart Catheterization With Stent, Joint Replacement, Orthopedic Surgery Additional Past Surgical History / Comment(s): 1997 or 1998 R carotid endartectomy in [place]. 1997 or 1998 cardiac cath with stenting in [place]. Bilateral hip replacements and total R knee,lt cataract and istent Past Anesthesia/Blood Transfusion Reactions: No Reported Reaction Additional Past Anesthesia/Blood Transfusion Reaction / Comm: no problems with prior blood transfusion Date of Last Stent Placement:: 1997 or 1998 in [place] Past Psychological History: No Psychological Hx Reported Past Alcohol Use History: None Reported Past Drug Use History: None Reported - Past Family History Father Family Medical History: Myocardial Infarction ([place]) Additional Family Medical History / Comment(s): Father at age 62 yrs of [place]. Mother Family Medical History: Diabetes Mellitus Additional Family Medical History / Comment(s): Mother of an impacted bowel at age 82 or 83yrs. Medications and Allergies Home Medications Medication Instructions Recorded Confirmed Type Lovastatin [Mevacor] 10 mg PO HS 11/29/14 07/10/21 History atenoloL [Tenormin] 25 mg PO HS 11/29/14 07/10/21 History Cholecalciferol [Vitamin D3] 25 mcg PO DAILY 09/01/16 07/10/21 History Allergies Allergy/AdvReac Type Severity Reaction Status Date / Time adhesive Allergy Rash/Hives Verified 07/10/21 18:01 Physical Exam Vitals: Vital Signs Temp Pulse Resp BP Pulse Ox 07/12/21 08:00 98.3 F 60 16 184/78 95 07/12/21 02:00 98.3 F 62 170/73 95 07/11/21 19:30 97.8 F 80 14 155/80 93 L 07/11/21 17:43 76 151/57 07/11/21 16:36 61 216/90 96 07/11/21 14:00 97.5 F L 60 18 182/77 96 Intake and Output 07/11/21 07/12/21 07/12/21 22:59 06:59 14:59 Intake Total 400 Balance 400 Intake: Oral 400 Other: # Voids 1 4 Results CBC & Chem 7: 07/12/21 05:24 07/12/21 05:24 Labs: Abnormal Lab Results - Last 24 Hours (Table) 07/11/21 07/11/21 07/11/21 Range/Units 05:27 12:34 16:59 Sodium (137-145) mmol/L Creatinine (0.52-1.04) mg/dL Glucose (74-99) mg/dL POC Glucose (mg/dL) 407 H 132 H (75-99) mg/dL Hemoglobin A1c 11.2 H (4.0-6.0) % Total Protein (6.3-8.2) g/dL Albumin (3.5-5.0) g/dL 07/11/21 07/12/21 07/12/21 Range/Units 20:25 05:24 07:09 Sodium 135 L (137-145) mmol/L Creatinine 0.46 L (0.52-1.04) mg/dL Glucose 252 H (74-99) mg/dL POC Glucose (mg/dL) 249 H 223 H (75-99) mg/dL Hemoglobin A1c (4.0-6.0) % Total Protein 5.4 L (6.3-8.2) g/dL Albumin 2.8 L (3.5-5.0) g/dL Microbiology - Last 24 Hours (Table) 07/10/21 18:20 Blood Culture - Preliminary Blood No Growth after 24 hours 07/10/21 18:00 Blood Culture - Preliminary Blood No Growth after 24 hours Assessment and Plan (1) Non-healing ulcer of right foot with necrosis of bone Current Visit: Yes Status: Acute Code(s): L97.514 - NON-PRS CHRONIC ULCER OTH PRT RIGHT FOOT W NECROSIS OF BONE SNOMED Code(s): 012454621 (2) Osteomyelitis Current Visit: Yes Status: Acute Code(s): M86.9 - OSTEOMYELITIS, UNSPECIFIED SNOMED Code(s): 32336492
[2021-07-12 11:28] LABS: Glucose,Whole Blood 170 mg/dL (75-99)
[2021-07-12] MEDS ORDERED: IV FLUID CONTINUATION 1,000 ML IV ONE (11:36)
[2021-07-12] MEDS ORDERED: KETAMINE 10 MG/ML 20 ML VIAL ONE (13:17)
[2021-07-12] MEDS ORDERED: PROPOFOL 10 MG/ML 20 ML VIAL IV ONE (13:17)
[2021-07-12] MEDS ORDERED: MIDAZOLAM 2 MG/2 ML VIAL ONE (13:17)
[2021-07-12] MEDS ORDERED: BACITRACIN ZINC 500 UNIT/GM OINT 28.4 GM TUBE TOPICAL ONE (13:53)
--- NOTE | 2021-07-12 14:14 | P.OP ---
Date of Procedure: 07/12/21 Preoperative Diagnosis: Nonhealing wound of the tip of the right third toe with associated osteomyelitis. Postoperative Diagnosis: Same. Procedure(s) Performed: #1: Surgical excisional debridement of right third toe wound utilizing a surgical scalpel. #2: Wound culture. Implants: None. Anesthesia: MAC (IV sedation.) Surgeon: Yosi Mcfarlane Estimated Blood Loss (ml): 2 Urine output (ml): 0 Pathology: other (Wound culture.) Condition: stable Disposition: no change Indications for Procedure: Patient is a 86-year-old female who presented with a wound affecting the distal tip of the right third toe. The patient was recently diagnosed as suffering from diabetes mellitus. Physical examination revealed femoral, popliteal, DP and PT pulses to be present. Arterial Doppler demonstrated essentially normal arterial perfusion. X-ray of the foot demonstrated osteomyelitis of the third toe of the right foot. Additionally the patient had nonviable tissue at the right third toe. Patient is offered excisional to [place] [facility] and a wound culture to more clearly stage the wound for the purpose of continued medical care. Description of Procedure: Patient was brought the upper and placed in the supine position and received attended anesthesia delivered by the department anesthesiology. Patient was maintained on her current antibiotic regimen. The right foot was sterilely prepped and draped in usual manner. Utilizing a surgical scalpel a callus which was capping the distal tip of the third toe of the right foot was to prided utilizing a surgical scalpel. This revealed good healthy tissue as well as a wound of the distal tuft of the toe. This wound measured 12 x 10 mm in length and width and 6 mm in depth, extending to the bone level. Cultures of this area were obtained. All nonviable tissue was removed. Appropriate dressing was applied. Patient tolerated the procedure well and was taken to the recovery area in satisfactory and stable condition.
[2021-07-12] MEDS ORDERED: hydrALAZINE HCL 20 MG/ML 1 ML VIAL IVP ONE (14:21)
--- NOTE | 2021-07-12 16:54 | PN ---
PROGRESS NOTE DATE OF SERVICE: 07/12/2021 REASON FOR FOLLOWUP: Right third toe wound and osteomyelitis. INTERVAL HISTORY: The patient was taken to the OR this afternoon. The patient is status post excision and debridement of the right third toe and wound cultures. The patient tolerated the procedure. The patient denies having any chest pain, shortness of breath or cough. No abdominal pain or diarrhea. PHYSICAL EXAMINATION: Blood pressure 105/51 with a pulse of 53, temperature 97. She is 95% on 2 L nasal cannula. GENERAL DESCRIPTION: General description is an elderly female lying in bed in no distress. RESPIRATORY SYSTEM: Unlabored breathing. Clear to auscultation anteriorly. HEART: S1, S2. Regular rate and rhythm. ABDOMEN: Soft. No tenderness. LABS: Hemoglobin is 12, white count 7.26, BUN of 14, creatinine 0.46. DIAGNOSTIC IMPRESSION AND PLAN: Patient with right third toe wound with underlying osteomyelitis, status post debridement. Culture will be followed and antibiotic adjusted further if needed. Continue the course of Unasyn. Monitor her kidney function closely. Continue supportive care. MMODL / IJN: [id number] /
[2021-07-12 16:58] LABS: Glucose,Whole Blood 240 mg/dL (75-99)
[2021-07-12] MEDS ORDERED: LOVASTATIN 10 MG PO SCH (21:00)
[2021-07-12 21:18] LABS: Glucose,Whole Blood 326 mg/dL (75-99)
[2021-07-12] MEDS: ATORVASTATIN 10 MG TAB PO SCH (21:46)
[2021-07-12] MEDS: atenoloL 25 MG TAB PO SCH (21:47)
[2021-07-12] MEDS: ACETAMINOPHEN TAB 325 MG TAB PO PRN (23:03)
[2021-07-13] MEDS ORDERED: VANCOMYCIN TROUGH DUE 1 EACH MISC MISCELLANE ONE (05:00)
[2021-07-13] MEDS: VANCOMYCIN 1,500 MG in SODIUM CHLORIDE 0.9% 250 ML IVPB SCH ×2 (06:57→17:04)
[2021-07-13 07:13] LABS: Glucose,Whole Blood 225 mg/dL (75-99)
[2021-07-13] MEDS: CHOLECALCIFEROL 25 MCG (1000 IU) TABLET PO SCH (07:33)
[2021-07-13] MEDS: PANTOPRAZOLE 40 MG TABLET PO SCH (07:33)
[2021-07-13] MEDS: INSULIN ASPART (NovoLOG) 100 UNIT/ML VIAL SQ SCH ×4 (07:33→20:47)
[2021-07-13] MEDS: ENOXAPARIN 40 MG/0.4 ML SYRINGE SQ SCH (07:33)
[2021-07-13] MEDS: NYSTATIN 100,000UNIT/GM CREAM 30 GM TUBE TOPICAL SCH ×3 (07:34→23:45)
--- NOTE | 2021-07-13 09:56 | P.PN ---
Subjective Progress Note Date: 07/13/21 This is an 86-year-old female patient of Dr. Hunt. Patient presented as a transfer from [facility] with concerns of osteomyelitis to her right third toe. Patient reports that she was ambulating when she had recently stopped her toe. Patient reports that she developed a huge blood blister and that her toenail fell off. Patient was seen in her PIPs office and was put on oral Cipro but symptoms did not improve. Patient returned her PCP who recommended she be evaluated in ER. X-ray was completed and [facility] showing ostial mellitus of the second and third toe. Patient has past medical history of hypertension and hyperlipidemia. Patient denies history of diabetes mellitus blood sugar was elevated at 372 upon admission. Will start patient on sliding scale coverage in order hemoglobin A1c patient also started on vancomycin and Unasyn in ER. Surgical services and infectious the service is consulted. Blood cultures ordered. At this time patient is resting comfortably in bed. Patient denies neck and pain to foot. Patient denies any chest pain or shortness of breath. Patient denies nausea vomiting or diarrhea. On 07/12/2021 Patient was seen and examined on the medical floor, she is alert and oriented x 3 in no distress, she denies any complaints there is no fever or chills no headache or dizziness no chest pain no shortness of breath no palpitation no cough no nausea or vomiting no abdominal pain no diarrhea no blood in the stools no burning with urination no frequency or urgency and no hematuria, there is no weakness or numbness in any of the extremities no change in vision speech or gait. On 07/13/2021 patient is alert and oriented 3. Patient is status post I&D of wound. Patient remains on vancomycin infectious disease and vascular surgery following at this time patient reports minimum pain. Patient denies chest pain or shortness of breath. Patient denies nausea vomiting or diarrhea. Patient denies any urinary burning or frequency Objective - Vital Signs Vital signs: Vital Signs Temp 97.7 F 07/13/21 07:37 Pulse 60 07/13/21 07:37 Resp 18 07/13/21 08:00 BP 187/75 07/13/21 07:37 Pulse Ox 95 07/13/21 07:37 Intake & Output 07/12/21 07/13/21 07/13/21 18:59 06:59 18:59 Intake Total 750 Output Total 2 Balance 748 Intake: IV 750 Output: Estimated Blood Loss 2 Other: Voiding Method Toilet # Voids 1 2 # Bowel Movements 0 - Exam In general patient is alert and oriented 3 in no apparent distress Head normocephalic and atraumatic Neck supple no JVD no goiter no lymphadenopathy Lungs clear to auscultation bilaterally no wheezing or crackles Heart regular rate and rhythm S1-S2, no rub or gallop Abdomen is soft nontender nondistended positive bowel sounds no hepatosplenomegaly Extremities no edema. Right third toe wound nail absent bloody drainage noted Neuro no gross focal neurological deficit - Labs CBC & Chem 7: 07/12/21 05:24 07/12/21 05:24 Labs: Abnormal Lab Results - Last 24 Hours (Table) 07/12/21 07/12/21 07/12/21 Range/Units 11:24 16:57 21:16 POC Glucose (mg/dL) 170 H 240 H 326 H (75-99) mg/dL 07/13/21 Range/Units 07:11 POC Glucose (mg/dL) 225 H (75-99) mg/dL Microbiology - Last 24 Hours (Table) 07/12/21 13:55 Gram Stain - Preliminary Toe - Right Third Wound Culture - Preliminary 07/12/21 13:55 Anaerobic Culture - Preliminary Toe - Right Third 07/12/21 13:55 Fungal Culture - Preliminary Toe - Right Third 07/10/21 18:00 Blood Culture - Preliminary Blood No Growth after 48 hours 07/10/21 18:20 Blood Culture - Preliminary Blood No Growth after 48 hours Assessment and Plan Assessment: 1. Osteomyelitis to second and third toe. X-ray was completed at outside hospital. Infectious disease and vascular surgery consulted. Patient currently maintained on vancomycin and Unasyn. Blood cultures ordered 2. Hyperglycemia. Patient started on sliding scale coverage and hemoglobin A1c ordered. 3. History of hyperlipidemia. Maintained on statin 4. History of essential hypertension 5. History of coronary artery disease DVT prophylaxis Lovenox. GI prophylaxis Protonix Vascular surgery and infectious disease service is consulted Maintained on IV vancomycin and Unasyn Blood cultures ordered Hemoglobin A1c 11.2 Status post I&D of wound on 07/12/2021
[2021-07-13 11:42] LABS: Glucose,Whole Blood 284 mg/dL (75-99)
--- NOTE | 2021-07-13 14:12 | P.PN ---
Subjective Progress Note Date: 07/12/21 This is an 86-year-old female patient of Dr. Hunt. Patient presented as a transfer from [facility] with concerns of osteomyelitis to her right third toe. Patient reports that she was ambulating when she had recently stopped her toe. Patient reports that she developed a huge blood blister and that her toenail fell off. Patient was seen in her PIPs office and was put on oral Cipro but symptoms did not improve. Patient returned her PCP who recommended she be evaluated in ER. X-ray was completed and [facility] showing ostial mellitus of the second and third toe. Patient has past medical history of hypertension and hyperlipidemia. Patient denies history of diabetes mellitus blood sugar was elevated at 372 upon admission. Will start patient on sliding scale coverage in order hemoglobin A1c patient also started on vancomycin and Unasyn in ER. Surgical services and infectious the service is consulted. Blood cultures ordered. At this time patient is resting comfortably in bed. Patient denies neck and pain to foot. Patient denies any chest pain or shortness of breath. Patient denies nausea vomiting or diarrhea. On 07/12/2021 Patient was seen and examined on the medical floor, she is alert and oriented x 3 in no distress, she denies any complaints there is no fever or chills no headache or dizziness no chest pain no shortness of breath no palpitation no cough no nausea or vomiting no abdominal pain no diarrhea no blood in the stools no burning with urination no frequency or urgency and no hematuria, there is no weakness or numbness in any of the extremities no change in vision speech or gait. Objective - Vital Signs Vital signs: Vital Signs Temp 98.3 F 07/12/21 08:00 Pulse 60 07/12/21 08:00 Resp 16 07/12/21 08:00 BP 184/78 07/12/21 08:00 Pulse Ox 95 07/12/21 08:00 Intake & Output 07/11/21 07/12/21 07/12/21 18:59 06:59 18:59 Intake Total 400 Balance 400 Intake: Oral 400 Other: Voiding Method Toilet # Voids 4 - Exam In general patient is alert and oriented 3 in no apparent distress Head normocephalic and atraumatic Neck supple no JVD no goiter no lymphadenopathy Lungs clear to auscultation bilaterally no wheezing or crackles Heart regular rate and rhythm S1-S2, no rub or gallop Abdomen is soft nontender nondistended positive bowel sounds no hepatosplenomegaly Extremities no edema. Right third toe wound nail absent bloody drainage noted Neuro no gross focal neurological deficit - Labs CBC & Chem 7: 07/12/21 05:24 07/12/21 05:24 Labs: Abnormal Lab Results - Last 24 Hours (Table) 07/11/21 07/11/21 07/11/21 Range/Units 05:27 05:27 12:34 Sodium (137-145) mmol/L Creatinine (0.52-1.04) mg/dL Glucose 236 H (70-110) mg/dL POC Glucose (mg/dL) 407 H (75-99) mg/dL Hemoglobin A1c 11.2 H (4.0-6.0) % Total Protein (6.3-8.2) g/dL Albumin (3.5-5.0) g/dL 07/11/21 07/11/21 07/12/21 Range/Units 16:59 20:25 05:24 Sodium 135 L (137-145) mmol/L Creatinine 0.46 L (0.52-1.04) mg/dL Glucose 252 H (70-110) mg/dL POC Glucose (mg/dL) 132 H 249 H (75-99) mg/dL Hemoglobin A1c (4.0-6.0) % Total Protein 5.4 L (6.3-8.2) g/dL Albumin 2.8 L (3.5-5.0) g/dL 07/12/21 Range/Units 07:09 Sodium (137-145) mmol/L Creatinine (0.52-1.04) mg/dL Glucose (70-110) mg/dL POC Glucose (mg/dL) 223 H (75-99) mg/dL Hemoglobin A1c (4.0-6.0) % Total Protein (6.3-8.2) g/dL Albumin (3.5-5.0) g/dL Microbiology - Last 24 Hours (Table) 07/10/21 18:20 Blood Culture - Preliminary Blood No Growth after 24 hours 07/10/21 18:00 Blood Culture - Preliminary Blood No Growth after 24 hours Assessment and Plan Assessment: 1. Osteomyelitis to second and third toe. X-ray was completed at outside [facility]. Infectious disease and vascular surgery consulted. Patient currently maintained on vancomycin and Unasyn. Blood cultures ordered 2. Hyperglycemia. Patient started on sliding scale coverage and hemoglobin A1c ordered. 3. History of hyperlipidemia. Maintained on statin 4. History of essential hypertension 5. History of coronary artery disease DVT prophylaxis Lovenox. GI prophylaxis Protonix Vascular surgery and infectious disease service is consulted Maintained on IV vancomycin and Unasyn Blood cultures ordered Hemoglobin A1c ordered
[2021-07-13 16:59] LABS: Glucose,Whole Blood 205 mg/dL (75-99)
[2021-07-13] MEDS: LACTATED RINGERS 1,000 ML IV SCH (17:03)
--- NOTE | 2021-07-13 17:55 | PN ---
PROGRESS NOTE DATE OF SERVICE: 07/13/2021 REASON FOR FOLLOWUP: Right third toe osteomyelitis. INTERVAL HISTORY: The patient is afebrile. The patient is breathing comfortably. Denies having any chest pain, shortness of breath or cough. No nausea, vomiting. No abdominal pain, diarrhea or any worsening pain to the right third toe surgical site. PHYSICAL EXAMINATION: Blood pressure is 187/75 with a pulse of 50, temperature 97.7. She is 95% on room air. General description is an elderly female lying in bed in no distress. Respiratory system: Unlabored breathing, clear to auscultation anteriorly. Heart S1, S2. Regular rate and rhythm. Abdomen soft, no tenderness. Right foot has a dressing, no obvious drainage on the dressing. LABS: Cultures are currently pending. DIAGNOSTIC IMPRESSION AND PLAN: Patient with right third toe chronic nonhealing wound with underlying osteomyelitis status post debridement. Cultures are pending. Patient to continue with Unasyn and vanco, adjusting antibiotic further based on culture report. Continue supportive care. MMODL / IJN: [id number] /
[2021-07-13 20:11] LABS: Glucose,Whole Blood 235 mg/dL (75-99)
[2021-07-13] MEDS: ATORVASTATIN 10 MG TAB PO SCH (20:39)
[2021-07-13] MEDS: atenoloL 25 MG TAB PO SCH (20:39)
[2021-07-13] MEDS: ACETAMINOPHEN TAB 325 MG TAB PO PRN (23:44)
[2021-07-14] MEDS: VANCOMYCIN 1,500 MG in SODIUM CHLORIDE 0.9% 250 ML IVPB SCH (06:10)
[2021-07-14 07:43] LABS: Glucose,Whole Blood 225 mg/dL (75-99)
[2021-07-14] MEDS: PANTOPRAZOLE 40 MG TABLET PO SCH (08:00)
[2021-07-14] MEDS: INSULIN ASPART (NovoLOG) 100 UNIT/ML VIAL SQ SCH ×4 (08:00→20:58)
[2021-07-14] MEDS: ENOXAPARIN 40 MG/0.4 ML SYRINGE SQ SCH (08:00)
[2021-07-14] MEDS: CHOLECALCIFEROL 25 MCG (1000 IU) TABLET PO SCH (08:00)
[2021-07-14 08:07] LABS: ALT 10 U/L (4-34); AST 20 U/L (14-36); African American GFR (CKD) >90 (>60 ml/min/1.73 sqM); Albumin 3.1 g/dL (3.5-5.0); Albumin/Globulin Ratio 1.2; Alkaline Phosphatase 62 U/L (38-126); Anion Gap 6 mmol/L; Blood Urea Nitrogen 22 mg/dL (7-17); Calcium 9.5 mg/dL (8.4-10.2); Carbon Dioxide 28 mmol/L (22-30); Chloride 102 mmol/L (98-107); Globulin 2.6 g/dL; Glucose 224 mg/dL (74-99); Non-African American GFR(CKD) 83 (>60 ml/min/1.73 sqM); Potassium 4.6 mmol/L (3.5-5.1); Sodium 136 mmol/L (137-145); Total Bilirubin 0.5 mg/dL (0.2-1.3); Total Protein 5.7 g/dL (6.3-8.2)
[2021-07-14 11:05] LABS: Glucose,Whole Blood 217 mg/dL (75-99)
[2021-07-14] MEDS: NYSTATIN 100,000UNIT/GM CREAM 30 GM TUBE TOPICAL SCH ×3 (11:31→20:59)
[2021-07-14 11:41] LABS: Basophils # (A) 0.07 X 10*3/uL (0.00-0.10); Basophils % (A) 0.8 %; Eosinophils % (A) 3.4 %; HCT 38.1 % (37.2-46.3); HGB 12.1 g/dL (12.0-15.0); Lymphocytes # (A) 2.49 X 10*3/uL (0.90-5.00); Lymphocytes % (A) 28.5 %; MCH 27.8 pg (27.0-32.0); MCHC 31.8 g/dL (32.0-37.0); MCV 87.4 fL (80.0-97.0); Mean Platelet Volume 10.4 fL (9.5-12.2); Monocytes # (A) 0.66 X 10*3/uL (0.20-1.00); Monocytes % (A) 7.6 %; Neutrophils # (A) 5.16 X 10*3/uL (1.80-7.70); Neutrophils % (A) 59.1 %; Platelet Count 342 X 10*3/uL (140-440); RBC 4.36 X 10*6/uL (4.10-5.20); RDW 13.6 % (11.5-14.5); WBC 8.73 X 10*3/uL (4.50-10.00)
[2021-07-14 12:06] VITALS: BMI 31.1
--- NOTE | 2021-07-14 12:55 | P.PN ---
Subjective Progress Note Date: 07/14/21 This is an 86-year-old female patient of Dr. Hunt. Patient presented as a transfer from [facility] with concerns of osteomyelitis to her right third toe. Patient reports that she was ambulating when she had recently stopped her toe. Patient reports that she developed a huge blood blister and that her toenail fell off. Patient was seen in her PIPs office and was put on oral Cipro but symptoms did not improve. Patient returned her PCP who recommended she be evaluated in ER. X-ray was completed and [facility] showing ostial mellitus of the second and third toe. Patient has past medical history of hypertension and hyperlipidemia. Patient denies history of diabetes mellitus blood sugar was elevated at 372 upon admission. Will start patient on sliding scale coverage in order hemoglobin A1c patient also started on vancomycin and Unasyn in ER. Surgical services and infectious the service is consulted. Blood cultures ordered. At this time patient is resting comfortably in bed. Patient denies neck and pain to foot. Patient denies any chest pain or shortness of breath. Patient denies nausea vomiting or diarrhea. On 07/12/2021 Patient was seen and examined on the medical floor, she is alert and oriented x 3 in no distress, she denies any complaints there is no fever or chills no headache or dizziness no chest pain no shortness of breath no palpitation no cough no nausea or vomiting no abdominal pain no diarrhea no blood in the stools no burning with urination no frequency or urgency and no hematuria, there is no weakness or numbness in any of the extremities no change in vision speech or gait. On 07/13/2021 patient is alert and oriented 3. Patient is status post I&D of wound. Patient remains on vancomycin infectious disease and vascular surgery following at this time patient reports minimum pain. Patient denies chest pain or shortness of breath. Patient denies nausea vomiting or diarrhea. Patient denies any urinary burning or frequency On 07/14/2021 Patient was seen and examined on the medical floor, she is alert and oriented x 3 in no distress, she is still complaining of pain in her right foot otherwise she denies any complaints there is no fever or chills no headache or dizziness no chest pain no shortness of breath no palpitation no cough no nausea or vomiting no abdominal pain no diarrhea no blood in the stools no burning with urination no frequency or urgency and no hematuria, there is no weakness or numbness in any of the extremities no change in vision speech or gait. Objective - Vital Signs Vital signs: Vital Signs Temp 98.3 F 07/14/21 06:33 Pulse 57 L 07/14/21 08:15 Resp 17 07/14/21 08:15 BP 149/73 07/14/21 06:33 Pulse Ox 93 L 07/14/21 06:33 Intake & Output 07/13/21 07/14/21 07/14/21 18:59 06:59 18:59 Weight 77.111 kg Other: Voiding Method Toilet Toilet # Voids 4 5 # Bowel Movements 0 - Exam In general patient is alert and oriented 3 in no apparent distress Head normocephalic and atraumatic Neck supple no JVD no goiter no lymphadenopathy Lungs clear to auscultation bilaterally no wheezing or crackles Heart regular rate and rhythm S1-S2, no rub or gallop Abdomen is soft nontender nondistended positive bowel sounds no hepatosplenomegaly Extremities no edema. Right third toe wound nail absent bloody drainage noted Neuro no gross focal neurological deficit - Labs CBC & Chem 7: 07/14/21 07:38 07/14/21 07:38 Labs: Abnormal Lab Results - Last 24 Hours (Table) 07/13/21 07/13/21 07/14/21 Range/Units 16:57 19:56 07:38 MCHC (32.0-37.0) g/dL Immature Gran # (0.00-0.04) X 10*3/uL Sodium 136 L (137-145) mmol/L BUN 22 H (7-17) mg/dL Glucose 224 H (74-99) mg/dL POC Glucose (mg/dL) 205 H 235 H (75-99) mg/dL Total Protein 5.7 L (6.3-8.2) g/dL Albumin 3.1 L (3.5-5.0) g/dL 07/14/21 07/14/21 07/14/21 Range/Units 07:38 07:42 11:04 MCHC 31.8 L (32.0-37.0) g/dL Immature Gran # 0.05 H (0.00-0.04) X 10*3/uL Sodium (137-145) mmol/L BUN (7-17) mg/dL Glucose (74-99) mg/dL POC Glucose (mg/dL) 225 H 217 H (75-99) mg/dL Total Protein (6.3-8.2) g/dL Albumin (3.5-5.0) g/dL Microbiology - Last 24 Hours (Table) 07/10/21 18:20 Blood Culture - Preliminary Blood No Growth after 72 hours 07/10/21 18:00 Blood Culture - Preliminary Blood No Growth after 72 hours 07/12/21 13:55 Gram Stain - Preliminary Toe - Right Third Wound Culture - Preliminary Assessment and Plan Assessment: 1. Osteomyelitis to second and third toe. X-ray was completed at outside hospital. Infectious disease and vascular surgery consulted. Patient currently maintained on vancomycin and Unasyn. Blood cultures ordered 2. Hyperglycemia. Patient started on sliding scale coverage and hemoglobin A1c ordered. 3. History of hyperlipidemia. Maintained on statin 4. History of essential hypertension 5. History of coronary artery disease DVT prophylaxis Lovenox. GI prophylaxis Protonix Vascular surgery and infectious disease service is consulted Maintained on IV vancomycin and Unasyn Blood cultures ordered Hemoglobin A1c ordered Continue with current management at this time awaiting culture results
[2021-07-14 16:12] LABS: Glucose,Whole Blood 123 mg/dL (75-99)
[2021-07-14] MEDS: AMPICILLIN-SULBACTAM 3 GM in SODIUM CHLORIDE 0.9% 100 ML IVPB SCH ×2 (18:38→23:44)
[2021-07-14 20:19] LABS: Glucose,Whole Blood 224 mg/dL (75-99)
--- NOTE | 2021-07-14 20:25 | PN ---
PROGRESS NOTE DATE OF SERVICE: 07/14/2021 REASON FOR FOLLOWUP: Right 3rd toe gangrene, osteomyelitis. INTERVAL HISTORY: Patient is afebrile. She is currently breathing comfortably. No chest pain, shortness of breath. No cough. No abdominal pain and pain to the right foot currently controlled. PHYSICAL EXAMINATION: Blood pressure 149/73 with a pulse of 67, temperature 98.3. She is 93% on room air. General description is an elderly female lying in bed in no distress. Respiratory system: Unlabored breathing. Clear to auscultation anteriorly. Heart S1, S2. Regular rate and rhythm. Abdomen soft, no tenderness. Right 3rd toe is currently dressed. No drainage on the dressing. Dressing was changed earlier by the nursing staff mentioned there was no black discoloration and overall swelling and redness has decreased. LABS: Hemoglobin is 12.1, white count 8.7, BUN of 22, creatinine 0.59. Culture showing Nicole albicans. DIAGNOSTIC IMPRESSION AND PLAN: Patient with right 3rd toe gangrene and osteomyelitis status post amputation and debridement. Culture has been negative for any resistant pathogen. Discontinue the vancomycin and consider Unasyn while waiting for the final cultures. Continue supportive care. MMODL / IJN: [id number] /
[2021-07-14] MEDS: ATORVASTATIN 10 MG TAB PO SCH (20:58)
[2021-07-14] MEDS: atenoloL 25 MG TAB PO SCH (20:58)
[2021-07-14] MEDS: ACETAMINOPHEN TAB 325 MG TAB PO PRN (22:49)
[2021-07-15] MEDS: LACTATED RINGERS 1,000 ML IV SCH (03:33)
[2021-07-15] MEDS: hydrALAZINE HCL 20 MG/ML 1 ML VIAL IVP PRN ×2 (03:33→19:18)
[2021-07-15] MEDS: AMPICILLIN-SULBACTAM 3 GM in SODIUM CHLORIDE 0.9% 100 ML IVPB SCH ×3 (05:33→17:19)
[2021-07-15 07:06] LABS: Glucose,Whole Blood 181 mg/dL (75-99)
[2021-07-15] MEDS: ENOXAPARIN 40 MG/0.4 ML SYRINGE SQ SCH (07:28)
[2021-07-15] MEDS: CHOLECALCIFEROL 25 MCG (1000 IU) TABLET PO SCH (07:28)
[2021-07-15] MEDS: INSULIN ASPART (NovoLOG) 100 UNIT/ML VIAL SQ SCH ×4 (07:28→21:30)
[2021-07-15] MEDS: PANTOPRAZOLE 40 MG TABLET PO SCH (07:28)
[2021-07-15] MEDS: NYSTATIN 100,000UNIT/GM CREAM 30 GM TUBE TOPICAL SCH ×3 (07:32→21:31)
[2021-07-15 11:20] LABS: Basophils # (A) 0.06 X 10*3/uL (0.00-0.10); Basophils % (A) 0.6 %; Eosinophils # (A) 0.28 X 10*3/uL (0.04-0.35); HCT 37.9 % (37.2-46.3); HGB 12.6 g/dL (12.0-15.0); Lymphocytes # (A) 1.24 X 10*3/uL (0.90-5.00); Lymphocytes % (A) 13.1 %; MCH 28.8 pg (27.0-32.0); MCHC 33.2 g/dL (32.0-37.0); MCV 86.7 fL (80.0-97.0); Mean Platelet Volume 10.2 fL (9.5-12.2); Monocytes # (A) 0.84 X 10*3/uL (0.20-1.00); Monocytes % (A) 8.9 %; Neutrophils # (A) 6.98 X 10*3/uL (1.80-7.70); Neutrophils % (A) 73.9 %; Platelet Count 352 X 10*3/uL (140-440); RBC 4.37 X 10*6/uL (4.10-5.20); RDW 13.5 % (11.5-14.5); WBC 9.45 X 10*3/uL (4.50-10.00)
--- NOTE | 2021-07-15 11:47 | P.PN ---
Subjective Progress Note Date: 07/15/21 This is an 86-year-old female patient of Dr. Hunt. Patient presented as a transfer from [facility] with concerns of osteomyelitis to her right third toe. Patient reports that she was ambulating when she had recently stopped her toe. Patient reports that she developed a huge blood blister and that her toenail fell off. Patient was seen in her PIPs office and was put on oral Cipro but symptoms did not improve. Patient returned her PCP who recommended she be evaluated in ER. X-ray was completed and [facility] showing ostial mellitus of the second and third toe. Patient has past medical history of hypertension and hyperlipidemia. Patient denies history of diabetes mellitus blood sugar was elevated at 372 upon admission. Will start patient on sliding scale coverage in order hemoglobin A1c patient also started on vancomycin and Unasyn in ER. Surgical services and infectious the service is consulted. Blood cultures ordered. At this time patient is resting comfortably in bed. Patient denies neck and pain to foot. Patient denies any chest pain or shortness of breath. Patient denies nausea vomiting or diarrhea. On 07/12/2021 Patient was seen and examined on the medical floor, she is alert and oriented x 3 in no distress, she denies any complaints there is no fever or chills no headache or dizziness no chest pain no shortness of breath no palpitation no cough no nausea or vomiting no abdominal pain no diarrhea no blood in the stools no burning with urination no frequency or urgency and no hematuria, there is no weakness or numbness in any of the extremities no change in vision speech or gait. On 07/13/2021 patient is alert and oriented 3. Patient is status post I&D of wound. Patient remains on vancomycin infectious disease and vascular surgery following at this time patient reports minimum pain. Patient denies chest pain or shortness of breath. Patient denies nausea vomiting or diarrhea. Patient denies any urinary burning or frequency On 07/14/2021 Patient was seen and examined on the medical floor, she is alert and oriented x 3 in no distress, she is still complaining of pain in her right foot otherwise she denies any complaints there is no fever or chills no headache or dizziness no chest pain no shortness of breath no palpitation no cough no nausea or vomiting no abdominal pain no diarrhea no blood in the stools no burning with urination no frequency or urgency and no hematuria, there is no weakness or numbness in any of the extremities no change in vision speech or gait. On 07/15/2021 patient is alert and oriented 3. Patient remains on IV Unasyn. Awaiting final culture to determine antibiotic per infectious disease. Hussain holt's hemoglobin A1c also elevated 11.2. Patient will be started on metformin and Actos and will require close monitoring outpatient. Patient denies any previous medications for diabetes mellitus. This time patient denies chest pain or shortness breath. Patient denies nausea vomiting or diarrhea. Patient denies any urinary burning or frequency Objective - Vital Signs Vital signs: Vital Signs Temp 97.7 F 07/15/21 08:00 Pulse 58 L 07/15/21 08:25 Resp 18 07/15/21 08:25 BP 170/68 07/15/21 08:00 Pulse Ox 95 07/15/21 08:00 Intake & Output 07/14/21 07/15/21 07/15/21 18:59 06:59 18:59 Intake Total 400 980 Balance 400 980 Weight 77.111 kg Intake: Intake, IV Titration 440 Amount Ampicillin-Sulbactam 3 gm 200 In Sodium Chloride 0.9% 100 ml @ 200 mls/hr IVPB Q6HR [facility] Rx#:[id number] Lactated Ringers 1,000 ml 240 @ 20 mls/hr IV .Q24H [facility] Rx#:[id number] Oral 400 540 Other: Voiding Method Toilet Toilet # Voids 5 3 - Exam In general patient is alert and oriented 3 in no apparent distress Head normocephalic and atraumatic Neck supple no JVD no goiter no lymphadenopathy Lungs clear to auscultation bilaterally no wheezing or crackles Heart regular rate and rhythm S1-S2, no rub or gallop Abdomen is soft nontender nondistended positive bowel sounds no hepatosp lenomegaly Extremities no edema. Right third toe wound nail absent bloody drainage noted Neuro no gross focal neurological deficit - Labs CBC & Chem 7: 07/15/21 06:55 07/14/21 07:38 Labs: Abnormal Lab Results - Last 24 Hours (Table) 07/14/21 07/14/21 07/15/21 Range/Units 16:10 20:18 06:55 Immature Gran # 0.05 H (0.00-0.04) X 10*3/uL POC Glucose (mg/dL) 123 H 224 H (75-99) mg/dL 07/15/21 Range/Units 07:04 Immature Gran # (0.00-0.04) X 10*3/uL POC Glucose (mg/dL) 181 H (75-99) mg/dL Microbiology - Last 24 Hours (Table) 07/10/21 18:20 Blood Culture - Preliminary Blood No Growth after 96 hours 07/10/21 18:00 Blood Culture - Preliminary Blood No Growth after 96 hours 07/12/21 13:55 Anaerobic Culture - Preliminary Toe - Right Third 07/12/21 13:55 Gram Stain - Final Toe - Right Third Wound Culture - Final Nicole albicans Assessment and Plan Assessment: 1. Osteomyelitis to second and third toe. X-ray was completed at outside hospital. Infectious disease and vascular surgery consulted. Patient currently maintained on vancomycin and Unasyn. Blood cultures ordered. Status post indication debridement per vascular surgery 2. Hyperglycemia. Patient started on sliding scale coverage and hemoglobin A1c ordered. 3. History of hyperlipidemia. Maintained on statin 4. History of essential hypertension 5. History of coronary artery disease DVT prophylaxis Lovenox. GI prophylaxis Protonix Vascular surgery and infectious disease service is following Awaiting final culture to determine antibiotic per ID A1c 11.2. Patient started on Actos and metformin Continue with current management at this time awaiting culture results
[2021-07-15 11:52] LABS: Glucose,Whole Blood 183 mg/dL (75-99)
[2021-07-15 12:44] LABS: ALT 14 U/L (8-44); AST 19 U/L (13-35); African American GFR (CKD) 90.9 (60.0-200.0); Alkaline Phosphatase 66 U/L (41-126); BUN/Creat Ratio 31.43 Ratio (12.00-20.00); C Reactive Protein <0.4 mg/dL (0.0-0.8); Calcium 9.5 mg/dL (8.7-10.3); Carbon Dioxide 31.2 mmol/L (21.6-31.8); Chloride 102 mmol/L (96-109); Glucose 182 mg/dL (70-110); Non-African American GFR(CKD) 78.5 (60.0-200.0); Potassium 4.6 mmol/L (3.5-5.5); Sodium 137 mmol/L (135-145); Total Bilirubin 0.7 mg/dL (0.3-1.2); Total Protein 5.6 g/dL (6.2-8.2)
[2021-07-15 14:59] LABS: Erythrocyte Sedimentation Rate 10 mm/Hr (0-30)
[2021-07-15 16:34] LABS: Glucose,Whole Blood 222 mg/dL (75-99)
[2021-07-15] MEDS: metFORMIN 500 MG TAB PO SCH (17:19)
[2021-07-15 20:37] LABS: Glucose,Whole Blood 206 mg/dL (75-99)
[2021-07-15] MEDS: ATORVASTATIN 10 MG TAB PO SCH (21:30)
[2021-07-15] MEDS: atenoloL 25 MG TAB PO SCH (21:30)
--- NOTE | 2021-07-15 23:55 | PN ---
PROGRESS NOTE DATE OF SERVICE: 07/15/2021. REASON FOR FOLLOWUP: Right third toe tip wound and osteomyelitis. INTERVAL HISTORY: The patient is afebrile. The patient is currently breathing comfortably. Patient denies having any chest pain, shortness of breath or cough. No abdominal pain or any worsening pain to the right third toe area. PHYSICAL EXAMINATION: Blood pressure 188/73 with a pulse of 76, temperature 98. She is 95% on room air. General description is an elderly female lying in bed in no distress. Respiratory system: Unlabored breathing, clear to auscultation anteriorly. Heart S1, S2. Regular rate and rhythm. The right third toe tip wound post debridement with minimal swelling and redness, no drainage. LABS: Hemoglobin is 12.6, white count 9.4, creatinine 0.7. Sed rate is 10. CRP is 0.4. DIAGNOSTIC IMPRESSION AND PLAN: Patient with right third toe tip wound with concern for secondary cellulitis. Culture has been negative for any resistant pathogen. Plan will be to finish therapy with oral Augmentin and close outpatient followup, local wound care with Aquacel Silver dressing. Continue supportive care. MMODL / IJN: [id number] /
[2021-07-16] MEDS: AMPICILLIN-SULBACTAM 3 GM in SODIUM CHLORIDE 0.9% 100 ML IVPB SCH ×4 (00:15→17:38)
[2021-07-16] MEDS: LACTATED RINGERS 1,000 ML IV SCH ×2 (00:16→17:39)
[2021-07-16] MEDS: hydrALAZINE HCL 20 MG/ML 1 ML VIAL IVP PRN (04:18)
[2021-07-16 07:07] LABS: Glucose,Whole Blood 201 mg/dL (75-99)
[2021-07-16] MEDS: PANTOPRAZOLE 40 MG TABLET PO SCH (07:21)
[2021-07-16] MEDS: PIOGLITAZONE 30 MG TAB PO SCH (07:21)
[2021-07-16] MEDS: ENOXAPARIN 40 MG/0.4 ML SYRINGE SQ SCH (07:21)
[2021-07-16] MEDS: CHOLECALCIFEROL 25 MCG (1000 IU) TABLET PO SCH (07:21)
[2021-07-16] MEDS: metFORMIN 500 MG TAB PO SCH ×2 (07:21→17:38)
[2021-07-16] MEDS: INSULIN ASPART (NovoLOG) 100 UNIT/ML VIAL SQ SCH ×4 (07:21→21:48)
[2021-07-16 08:50] LABS: Basophils # (A) 0.05 X 10*3/uL (0.00-0.10); Basophils % (A) 0.6 %; Eosinophils # (A) 0.24 X 10*3/uL (0.04-0.35); Eosinophils % (A) 3.1 %; HCT 38.7 % (37.2-46.3); HGB 12.9 g/dL (12.0-15.0); Lymphocytes # (A) 1.32 X 10*3/uL (0.90-5.00); Lymphocytes % (A) 16.8 %; MCH 28.8 pg (27.0-32.0); MCHC 33.3 g/dL (32.0-37.0); MCV 86.4 fL (80.0-97.0); Mean Platelet Volume 10.4 fL (9.5-12.2); Monocytes # (A) 0.64 X 10*3/uL (0.20-1.00); Monocytes % (A) 8.2 %; Neutrophils # (A) 5.53 X 10*3/uL (1.80-7.70); Neutrophils % (A) 70.4 %; Platelet Count 318 X 10*3/uL (140-440); RBC 4.48 X 10*6/uL (4.10-5.20); RDW 13.7 % (11.5-14.5); WBC 7.85 X 10*3/uL (4.50-10.00)
[2021-07-16 09:15] LABS: African American GFR (CKD) 95.7 (60.0-200.0); Anion Gap 7.4 mmol/L (4.00-12.00); BUN/Creat Ratio 26.67 Ratio (12.00-20.00); Calcium 9.3 mg/dL (8.7-10.3); Carbon Dioxide 28.6 mmol/L (21.6-31.8); Non-African American GFR(CKD) 82.5 (60.0-200.0); Potassium 3.8 mmol/L (3.5-5.5); Total Protein 5.7 g/dL (6.2-8.2)
[2021-07-16 09:16] LABS: Albumin 3.6 g/dL (3.80-4.90); Albumin/Globulin Ratio 1.71 (1.60-3.17); Globulin 2.1 g/dL (1.6-3.3); Total Bilirubin 0.8 mg/dL (0.3-1.2)
[2021-07-16 11:52] LABS: Glucose,Whole Blood 226 mg/dL (75-99)
[2021-07-16] MEDS: NYSTATIN 100,000UNIT/GM CREAM 30 GM TUBE TOPICAL SCH ×3 (12:36→21:49)
--- NOTE | 2021-07-16 13:01 | P.PN ---
Subjective Progress Note Date: 07/16/21 This is an 86-year-old female patient of Dr. Hunt. Patient presented as a transfer from [facility] with concerns of osteomyelitis to her right third toe. Patient reports that she was ambulating when she had recently stopped her toe. Patient reports that she developed a huge blood blister and that her toenail fell off. Patient was seen in her PIPs office and was put on oral Cipro but symptoms did not improve. Patient returned her PCP who recommended she be evaluated in ER. X-ray was completed and [facility] showing ostial mellitus of the second and third toe. Patient has past medical history of hypertension and hyperlipidemia. Patient denies history of diabetes mellitus blood sugar was elevated at 372 upon admission. Will start patient on sliding scale coverage in order hemoglobin A1c patient also started on vancomycin and Unasyn in ER. Surgical services and infectious the service is consulted. Blood cultures ordered. At this time patient is resting comfortably in bed. Patient denies neck and pain to foot. Patient denies any chest pain or shortness of breath. Patient denies nausea vomiting or diarrhea. On 07/12/2021 Patient was seen and examined on the medical floor, she is alert and oriented x 3 in no distress, she denies any complaints there is no fever or chills no headache or dizziness no chest pain no shortness of breath no palpitation no cough no nausea or vomiting no abdominal pain no diarrhea no blood in the stools no burning with urination no frequency or urgency and no hematuria, there is no weakness or numbness in any of the extremities no change in vision speech or gait. On 07/13/2021 patient is alert and oriented 3. Patient is status post I&D of wound. Patient remains on vancomycin infectious disease and vascular surgery following at this time patient reports minimum pain. Patient denies chest pain or shortness of breath. Patient denies nausea vomiting or diarrhea. Patient denies any urinary burning or frequency On 07/14/2021 Patient was seen and examined on the medical floor, she is alert and oriented x 3 in no distress, she is still complaining of pain in her right foot otherwise she denies any complaints there is no fever or chills no headache or dizziness no chest pain no shortness of breath no palpitation no cough no nausea or vomiting no abdominal pain no diarrhea no blood in the stools no burning with urination no frequency or urgency and no hematuria, there is no weakness or numbness in any of the extremities no change in vision speech or gait. On 07/15/2021 patient is alert and oriented 3. Patient remains on IV Unasyn. Awaiting final culture to determine antibiotic per infectious disease. Hussain holt's hemoglobin A1c also elevated 11.2. Patient will be started on metformin and Actos and will require close monitoring outpatient. Patient denies any previous medications for diabetes mellitus. This time patient denies chest pain or shortness breath. Patient denies nausea vomiting or diarrhea. Patient denies any urinary burning or frequency On 07/16/2021 Patient was seen and examined on the medical floor, he is alert and oriented x 3 in no distress, he denies any complaints there is no fever or chills no headache or dizziness no chest pain no shortness of breath no palpitation no cough no nausea or vomiting no abdominal pain no diarrhea no blood in the stools no burning with urination no frequency or urgency and no hematuria, there is no weakness or numbness in any of the extremities no change in vision speech or gait., At this time we are awaiting final culture results, and recommendation from infectious disease for antibiotic on discharge. Possible discharge to home in the next 1-2 days Objective - Vital Signs Vital signs: Vital Signs Temp 98.4 F 07/16/21 02:00 Pulse 76 07/16/21 02:00 Resp 16 07/16/21 02:00 BP 176/74 07/16/21 02:00 Pulse Ox 92 L 07/16/21 02:00 Intake & Output 07/15/21 07/16/21 07/16/21 18:59 06:59 18:59 Intake Total 1080 780 Balance 1080 780 Intake: Intake, IV Titration 240 Amount Lactated Ringers 1,000 ml 240 @ 20 mls/hr IV .Q24H [facility] Rx#:[id number] Oral 1080 540 Other: Voiding Method Toilet # Voids 6 4 - Exam In general patient is alert and oriented 3 in no apparent distress Head normocephalic and atraumatic Neck supple no JVD no goiter no lymphadenopathy Lungs clear to auscultation bilaterally no wheezing or crackles Heart regular rate and rhythm S1-S2, no rub or gallop Abdomen is soft nontender nondistended positive bowel sounds no he patosplenomegaly Extremities no edema. Right third toe wound nail absent bloody drainage noted Neuro no gross focal neurological deficit - Labs CBC & Chem 7: 07/16/21 05:38 07/16/21 05:38 Labs: Abnormal Lab Results - Last 24 Hours (Table) 07/15/21 07/15/21 07/15/21 Range/Units 06:55 06:55 11:51 Immature Gran # 0.05 H (0.00-0.04) X 10*3/uL Anion Gap 3.80 L (4.00-12.00) mmol/L BUN/Creatinine Ratio 31.43 H (12.00-20.00) Ratio Glucose 182 H (70-110) mg/dL POC Glucose (mg/dL) 183 H (75-99) mg/dL Total Protein 5.6 L (6.2-8.2) g/dL Albumin 3.60 L (3.80-4.90) g/dL 07/15/21 07/15/21 07/16/21 Range/Units 16:33 20:35 07:06 Immature Gran # (0.00-0.04) X 10*3/uL Anion Gap (4.00-12.00) mmol/L BUN/Creatinine Ratio (12.00-20.00) Ratio Glucose (70-110) mg/dL POC Glucose (mg/dL) 222 H 206 H 201 H (75-99) mg/dL Total Protein (6.2-8.2) g/dL Albumin (3.80-4.90) g/dL Microbiology - Last 24 Hours (Table) 07/10/21 18:00 Blood Culture - Preliminary Blood No Growth after 120 hours 07/10/21 18:20 Blood Culture - Preliminary Blood No Growth after 120 hours Assessment and Plan Assessment: 1. Osteomyelitis to second and third toe. X-ray was completed at outside hospital. Infectious disease and vascular surgery consulted. Patient currently maintained on vancomycin and Unasyn. Blood cultures ordered. Status post indication debridement per vascular surgery 2. Hyperglycemia. Patient started on sliding scale coverage and hemoglobin A1c ordered. 3. History of hyperlipidemia. Maintained on statin 4. History of essential hypertension 5. History of coronary artery disease DVT prophylaxis Lovenox. GI prophylaxis Protonix Vascular surgery and infectious disease service is following Awaiting final culture to determine antibiotic per ID A1c 11.2. Patient started on Actos and metformin Continue with current management at this time awaiting culture results
[2021-07-16 16:36] LABS: Glucose,Whole Blood 205 mg/dL (75-99)
[2021-07-16 20:06] LABS: Glucose,Whole Blood 210 mg/dL (75-99)
--- NOTE | 2021-07-16 21:20 | PN ---
PROGRESS NOTE DATE OF SERVICE: 07/16/2021 REASON FOR FOLLOWUP: Right third toe wound and concern for cellulitis. INTERVAL HISTORY: The patient is afebrile. The patient is currently breathing comfortably. The patient denies having any chest pain, shortness of breath or cough. No abdominal pain or any worsening pain to the right third toe wound area. PHYSICAL EXAMINATION: Blood pressure 126/78 with a pulse of 68, temperature 98.5. She is 94% on room air. GENERAL DESCRIPTION: General description is an elderly female lying in bed in no distress. RESPIRATORY SYSTEM: Unlabored breathing. Clear to auscultation anteriorly. HEART: S1, S2. Regular rate and rhythm. ABDOMEN: Soft. No tenderness. Right foot is currently dressed. No obvious drainage on the dressing. LABS: No new labs have been obtained today. Local culture with Nicole albicans. Blood culture negative. DIAGNOSTIC IMPRESSION AND PLAN: Patient with right third toe wound, status post debridement, with concern for osteomyelitis. However, clinically not behaving as such. Culture did not show any resistant pathogen. CRP and sedimentation rate are normal. We will consider oral Augmentin on discharge. Local wound care with Aquacel Silver dressing and [facility] up [facility]. Questions and concerns were answered. MMODL / IJN: [id number] /
[2021-07-16] MEDS: atenoloL 25 MG TAB PO SCH (21:48)
[2021-07-16] MEDS: ATORVASTATIN 10 MG TAB PO SCH (21:48)
[2021-07-17] MEDS: AMPICILLIN-SULBACTAM 3 GM in SODIUM CHLORIDE 0.9% 100 ML IVPB SCH ×3 (00:46→12:12)
[2021-07-17 06:43] LABS: Glucose,Whole Blood 152 mg/dL (75-99)
[2021-07-17 07:11] VITALS: BP 148/71; PULSE 54; RESP 17; TEMP 98.3
[2021-07-17] MEDS: PIOGLITAZONE 30 MG TAB PO SCH (07:41)
[2021-07-17] MEDS: CHOLECALCIFEROL 25 MCG (1000 IU) TABLET PO SCH (07:41)
[2021-07-17] MEDS: INSULIN ASPART (NovoLOG) 100 UNIT/ML VIAL SQ SCH ×2 (07:41→12:12)
[2021-07-17] MEDS: ENOXAPARIN 40 MG/0.4 ML SYRINGE SQ SCH (07:41)
[2021-07-17] MEDS: metFORMIN 500 MG TAB PO SCH (07:41)
[2021-07-17] MEDS: PANTOPRAZOLE 40 MG TABLET PO SCH (07:41)
[2021-07-17] MEDS: NYSTATIN 100,000UNIT/GM CREAM 30 GM TUBE TOPICAL SCH (07:42)
[2021-07-17 09:22] LABS: Basophils # (A) 0.06 X 10*3/uL (0.00-0.10); Basophils % (A) 0.8 %; Eosinophils # (A) 0.26 X 10*3/uL (0.04-0.35); Eosinophils % (A) 3.4 %; HCT 37.7 % (37.2-46.3); HGB 12.2 g/dL (12.0-15.0); Lymphocytes # (A) 1.55 X 10*3/uL (0.90-5.00); Lymphocytes % (A) 20.1 %; MCH 27.9 pg (27.0-32.0); MCHC 32.4 g/dL (32.0-37.0); MCV 86.3 fL (80.0-97.0); Mean Platelet Volume 10.7 fL (9.5-12.2); Monocytes # (A) 0.67 X 10*3/uL (0.20-1.00); Monocytes % (A) 8.7 %; Neutrophils # (A) 5.12 X 10*3/uL (1.80-7.70); Neutrophils % (A) 66.2 %; Platelet Count 286 X 10*3/uL (140-440); RBC 4.37 X 10*6/uL (4.10-5.20); RDW 13.6 % (11.5-14.5); WBC 7.72 X 10*3/uL (4.50-10.00)
[2021-07-17 10:05] LABS: African American GFR (CKD) 95.7 (60.0-200.0); Albumin 3.3 g/dL (3.80-4.90); Albumin/Globulin Ratio 1.57 (1.60-3.17); Anion Gap 6.4 mmol/L (4.00-12.00); BUN/Creat Ratio 23.33 Ratio (12.00-20.00); Carbon Dioxide 29.6 mmol/L (21.6-31.8); Globulin 2.1 g/dL (1.6-3.3); Non-African American GFR(CKD) 82.5 (60.0-200.0); Potassium 3.9 mmol/L (3.5-5.5); Total Bilirubin 0.9 mg/dL (0.2-1.2); Total Protein 5.4 g/dL (6.2-8.2)
[2021-07-17 11:29] LABS: Glucose,Whole Blood 164 mg/dL (75-99)
--- NOTE | 2021-07-20 16:00 | P.PN ---
Progress Note - Text Progress Note Date: 07/17/21 REASON FOR FOLLOWUP: Right third toe wound and concern for cellulitis. INTERVAL HISTORY: The patient remains to be afebrile. The patient is breathing comfortably. The patient denies having any chest pain, shortness of breath or cough. No abdominal pain or any pain to the right third toe wound area. PHYSICAL EXAMINATION: Blood pressure 120/70 with a pulse of 60, temperature 98.5. She is 94% on room air. GENERAL DESCRIPTION: General description is an elderly female lying in bed in no distress. RESPIRATORY SYSTEM: Unlabored breathing. Clear to auscultation anteriorly. HEART: S1, S2. Regular rate and rhythm. ABDOMEN: Soft. No tenderness. Right foot is currently dressed. No obvious drainage on the dressing. LABS: No new labs have been obtained today. Local culture with Nicole albicans. Blood culture negative. DIAGNOSTIC IMPRESSION AND PLAN: Patient with right third toe wound, status post debridement, with concern for osteomyelitis. However, clinically not behaving as such. Culture did not show any resistant pathogen. CRP and sedimentation rate are normal. We will consider oral Augmentin 875 mg twice a day for 10 days on discharge. Local wound care with Aquacel Silver dressing and follow up with [facility] next week. Discussed with the admitting physician
--- NOTE | 2021-07-25 13:47 | P.ARTDOP ---
Arterial Doppler LOWER EXTREMITY ARTERIAL DOPPLER: DATE OF SERVICE: 07/11/2021 Reason for study: Injury to stay third toe right foot. Doppler waveforms: Multiphasic bilaterally throughout. Digital waveforms appear good.. Pulse volume recording: []. Pressure gradients: Only at the foot level. Ankle-brachial indices: 0.97 on the right and 0.95 on the left. Toe brachial indices: 0.30 on the right, 0.41 on the left Impression: Proximally the study is normal. Suspect decrease in toe pressures related to vasospastic phenomenon. Perfusion probably adequate for healing..
== END 2021-07-17 13:15 | disposition home health service (06) | DRG 623 ==
LOC: EC 15:45 → 4SSUR 17:45
PROVIDERS: ADMIT Internal Medicine; ATTEND Internal Medicine
PROC: 0JBQ0ZZ Excision of Right Foot Subcutaneous Tissue and Fascia, Open Approach (ICD-10-PCS; principal; 2021-07-12 12:00)
DX: E11.69 Type 2 diabetes mellitus with other specified complication (principal); M86.9 Osteomyelitis, unspecified; E11.52 Type 2 diabetes mellitus with diabetic peripheral angiopathy with gangrene; I25.10 Atherosclerotic heart disease of native coronary artery without angina pectoris; W22.8XXA Striking against or struck by other objects, initial encounter; E11.65 Type 2 diabetes mellitus with hyperglycemia; E11.621 Type 2 diabetes mellitus with foot ulcer; L97.514 Non-pressure chronic ulcer of other part of right foot with necrosis of bone; E78.5 Hyperlipidemia, unspecified; I10 Essential (primary) hypertension; Z95.5 Presence of coronary angioplasty implant and graft; Z96.643 Presence of artificial hip joint, bilateral; Z83.3 Family history of diabetes mellitus; Z82.49 Family history of ischemic heart disease and other diseases of the circulatory system; S99.821A Other specified injuries of right foot, initial encounter; Z79.899 Other long term (current) drug therapy; H40.9 Unspecified glaucoma; H26.9 Unspecified cataract
CPT/HCPCS: 80048; 80053; 80202; 83036; 85025; 85652; 86140; 87040; 87070; 87075; 87102; 87205; 93923; 99284

== ENCOUNTER 2024-09-23 11:56 | Emergency (ER) | payer MEDICARE ==
[2024-09-23 12:05] VITALS: TEMP 97.3
--- NOTE | 2024-09-23 12:35 | ED ---
General Adult HPI - General Chief complaint: Extremity Problem,Nontraumatic Stated complaint: leg pain Time Seen by Provider: 09/23/24 12:14 Source: patient, family, RN notes reviewed Mode of arrival: wheelchair Limitations: physical limitation - History of Present Illness Initial comments: Patient is an 89-year-old female presenting to the emergency department with concern for leg pain. Patient states she had minimal symptoms last night and not bad this morning. Patient states symptoms got worse when she went from standing after using the toilet. Patient states her legs do not feel like they can support her weight. Patient states the discomfort is severe and worse with getting up and movement. No history of similar symptoms previously. Patient does have some discomfort more of the left buttocks. Discomfort seems to be in both legs - Related Data Home Medications Medication Instructions Recorded Confirmed Lovastatin [Mevacor] 10 mg PO HS 11/29/14 07/10/21 atenoloL [Tenormin] 25 mg PO HS 11/29/14 07/10/21 Cholecalciferol [Vitamin D3 (25 25 mcg PO DAILY 09/01/16 07/10/21 Mcg = 1000 Iu)] Previous Rx's Medication Instructions Recorded Amoxic-Pot Clav 875-125Mg 1 tab PO Q12HR 14 Days #28 tab 07/16/21 [Augmentin 875-125] Nystatin 100,000Unit/gm Cream 1 applic TOPICAL TID gm 07/17/21 [Mycostatin Cream] Pioglitazone [Actos] 30 mg PO DAILY tab 07/17/21 metFORMIN HCL [Glucophage] 500 mg PO BID-W/MEALS tab 07/17/21 Cyclobenzaprine [Flexeril] 10 mg PO TID PRN #12 tablet 09/23/24 Allergies Allergy/AdvReac Type Severity Reaction Status Date / Time adhesive Allergy Rash/Hives Verified 09/23/24 12:01 Review of Systems ROS Statement: Those systems with pertinent positive or pertinent negative responses have been documented in the HPI. ROS Other: All systems not noted in ROS Statement are negative. Constitutional: Denies: fever Eyes: Denies: eye pain ENT: Denies: ear pain Respiratory: Denies: cough Cardiovascular: Denies: chest pain Gastrointestinal: Denies: abdominal pain, nausea, vomiting Musculoskeletal: Reports: as per HPI Neurological: Denies: headache, weakness, confusion Past Medical History Past Medical History: Coronary Artery Disease (CAD), Eye Disorder, Hearing Disorder / Deafness, Hyperlipidemia, Hypertension Additional Past Medical History / Comment(s): rt cataract,rt eye glaucoma History of Any Multi-Drug Resistant Organisms: None Reported Past Surgical History: Heart Catheterization With Stent, Joint Replacement, Orthopedic Surgery Additional Past Surgical History / Comment(s): 1997 or 1998 R carotid endartectomy in [place]. 1997 or 1998 cardiac cath with stenting in [place]. Bilateral hip replacements and total R knee,lt cataract and istent Past Anesthesia/Blood Transfusion Reactions: No Reported Reaction Additional Past Anesthesia/Blood Transfusion Reaction / Comment(s): no problems with prior blood transfusion Date of Last Stent Placement:: 1997 or 1998 in [place] Past Psychological History: No Psychological Hx Reported Past Alcohol Use History: None Reported Past Drug Use History: None Reported - Past Family History Father Family Medical History: Myocardial Infarction ([place]) Additional Family Medical History / Comment(s): Father at age 62 yrs of [place]. Mother Family Medical History: Diabetes Mellitus Additional Family Medical History / Comment(s): Mother of an impacted bowel at age 82 or 83yrs. General Exam Limitations: no limitations General appearance: alert, in no apparent distress Head exam: Present: atraumatic, normocephalic Eye exam: Present: normal appearance Neck exam: Present: normal inspection. Absent: tenderness Respiratory exam: Present: normal lung sounds bilaterally Cardiovascular Exam: Present: regular rate, normal rhythm, normal heart sounds Expanded Peripheral pulses: 2+: Posterior Tibialis (R), Posterior Tibialis (L), Dorsalis Pedis (R), Dorsalis Pedis (L) GI/Abdominal exam: Present: soft, normal bowel sounds. Absent: distended, tenderness, guarding, rebound, rigid, pulsatile mass Extremities exam: Present: normal inspection, full ROM. Absent: tenderness Back exam: Present: tenderness (Left sacroiliac). Absent: vertebral tenderness Neurological exam: Present: alert. Absent: motor sensory deficit Expanded Sensory exam: Lower Extremity Light Touch: Normal Motor strength exam: RLE: 5, LLE: 5 Psychiatric exam: Present: normal affect, normal mood Skin exam: Present: normal color Course Vital Signs 09/23/24 09/23/24 09/23/24 12:01 12:33 14:04 Temperature 97.3 F L Pulse Rate 57 L Respiratory 18 Rate Blood Pressure 219/93 224/97 198/98 O2 Sat by Pulse 97 Oximetry EKG Findings - EKG Results: EKG: interpreted by ERMD (Left axis.), sinus rhythm, normal QRS, normal ST/T EKG shows: bradycardia Medical Decision Making - Medical Decision Making Was pt. sent in by a medical professional or institution (JAMI Landa, TILE POWER SHEAR OPERATOR, urgent care, hospital, or usp...) When possible be specific @ -No Did you speak to anyone other than the patient for history (EMS, parent, family, police, friend...)? What history was obtained from this source @ -No Did you review nursing and triage notes (agree or disagree)? Why? @ -I reviewed and agree with nursing and triage notes Were old charts reviewed (outside hosp., previous admission, EMS record, old EKG, old radiological studies, urgent care reports/EKG's, usp records)? Report findings @ -No old charts were reviewed Differential Diagnosis (chest pain, altered mental status, abdominal pain women, abdominal pain men, vaginal bleeding, weakness, fever, dyspnea, syncope, headache, dizziness, GI bleed, back pain, seizure, CVA, palpatations, mental health, musculoskeletal)? @ -MDM differential back differential Back Pain: Strain, zoster, cauda equina syndrome, epidural abscess, vertebral osteomyelitis, discitis, fracture, subluxation, disc herniation, DJD, spinal stenosis, dissection, AAA, pancreatitis, peptic ulcer disease, pyelonephritis, kidney stone, this is not meant to be an all-inclusive list. EKG interpreted by me (3pts min.). @ -As above X-rays interpreted by me (1pt min.). @ -Chest x-ray does not reveal acute abnormality CT interpreted by me (1pt min.). @ -CT lumbar and sacrum shows degenerative changes. Atherosclerotic changes of aorta U/S interpreted by me (1pt. min.). @ -None done What testing was considered but not performed or refused? (CT, X-rays, U/S, labs)? Why? @ -None What meds were considered but not given or refused? Why? @ -None Did you discuss the management of the patient with other professionals (professionals i.e. JAMI Landa, TILE POWER SHEAR OPERATOR, lab, RT, psych nurse, neonatal social worker, wire saw operator, teacher, space operations officer, shoe parts caser)? Give summary @ -No Was smoking cessation discussed for >3mins.? @ -No Was critical care preformed (if so, how long)? @ -No Were there social determinants of health that impacted care today? How? (Homelessness, low income, unemployed, alcoholism, drug addiction, transportation, low edu. Level, literacy, decrease access to med. care, snf, rehab)? @ -No Was there de-escalation of care discussed even if they declined (Discuss DNR or withdrawal of care, Hospice)? DNR status @ -No What co-morbidities impacted this encounter? (DM, HTN, Smoking, COPD, CAD, Cancer, CVA, ARF, Chemo, Hep., AIDS, mental health diagnosis, sleep apnea, morbid obesity)? @ -None Was patient admitted / discharged? Hospital course, mention meds given and route, prescriptions, significant lab abnormalities, going to OR and other pertinent info. @ -Patient presents with discomfort from the sacroiliac region to legs. Patient symptoms improved with medication and is able to ambulate without assistance. Patient requesting discharge home. Patient and family are updated on results and need for follow-up. Patient's blood pressure was elevated and did have some improvement with medication. Patient advised to take additional normal dose of her blood pressure medicine tonight still Undiagnosed new problem with uncertain prognosis? @ -No Drug Therapy requiring intensive monitoring for toxicity (Heparin, Nitro, Insulin, Cardizem)? @ -No Were any procedures done? @ -No Diagnosis/symptom? @ -Sciatica Acute, or Chronic, or Acute on Chronic? @ -Acute Uncomplicated (without systemic symptoms) or Complicated (systemic symptoms)? @ -Default Side effects of treatment? @ -No Exacerbation, Progression, or Severe Exacerbation? @ -No Poses a threat to life or bodily function? How? (Chest pain, [place], [place], pneumonia, PE, COPD, DKA, ARF, appy, cholecystitis, CVA, Diverticulitis, Homicidal, Suicidal, threat to staff... and all critical care pts) @ -No - Lab Data Result diagrams: 09/23/24 13:00 09/23/24 13:00 Lab Results 09/23/24 09/23/24 09/23/24 Range/Units 13:00 13:00 14:17 WBC 10.6 (3.8-10.6) k/uL RBC 5.43 H (3.80-5.40) m/uL Hgb 14.9 (11.4-16.0) gm/dL Hct 46.1 H (34.0-46.0) % MCV 84.8 (80.0-100.0) fL MCH 27.4 (25.0-35.0) pg MCHC 32.3 (31.0-37.0) g/dL RDW 14.2 (11.5-15.5) % Plt Count 474 H (150-450) k/uL MPV 7.4 Neutrophils % 79 % Lymphocytes % 12 % Monocytes % 5 % Eosinophils % 2 % Basophils % 1 % Neutrophils # 8.3 H (1.3-7.7) k/uL Lymphocytes # 1.2 (1.0-4.8) k/uL Monocytes # 0.6 (0-1.0) k/uL Eosinophils # 0.3 (0-0.7) k/uL Basophils # 0.1 (0-0.2) k/uL Sodium 137 (137-145) mmol/L Potassium 4.7 (3.5-5.1) mmol/L Chloride 103 (98-107) mmol/L Carbon Dioxide 26 (22-30) mmol/L Anion Gap 8 mmol/L BUN 21 H (7-17) mg/dL Creatinine 0.70 (0.52-1.04) mg/dL Est GFR (CKD-EPI)AfAm 89 (>60 ml/min/1.73 sqM) Est GFR (CKD-EPI)NonAf 77 (>60 ml/min/1.73 sqM) Glucose 142 H (74-99) mg/dL Calcium 9.9 (8.4-10.2) mg/dL Total Bilirubin 0.9 (0.2-1.3) mg/dL AST 21 (14-36) U/L ALT 15 (4-34) U/L Alkaline Phosphatase 78 (38-126) U/L Total Protein 7.0 (6.3-8.2) g/dL Albumin 4.3 (3.5-5.0) g/dL Urine Color Yellow Urine Appearance Clear (Clear) Urine pH 5.5 (5.0-8.0) Ur Specific [place] 1.019 (1.001-1.035) Urine Protein 1+ H (Negative) Urine Glucose (UA) Negative (Negative) Urine Ketones Negative (Negative) Urine Blood Trace H (Negative) Urine Nitrite Negative (Negative) Urine Bilirubin Negative (Negative) Urine Urobilinogen <2.0 (<2.0) mg/dL Ur Leukocyte Esterase Negative (Negative) Urine RBC 3 (0-5) /hpf Urine WBC 2 (0-5) /hpf Ur Squamous Epith Cells 2 (0-4) /hpf Urine Mucus Rare H (None) /hpf Disposition Clinical Impression: Sciatica Disposition: HOME SELF-CARE Condition: Stable Instructions (If sedation given, give patient instructions): Sciatica (ED) Additional Instructions: Prescription sent to pharmacy. Please do follow-up with your primary care physician in the next 1 or 2 days for recheck. Have blood pressure rechecked. Please also follow-up with back doctor, number provided. Return for increased pain, weakness, unable to ambulate, loss of control of bowel or bladder, worsening symptoms or any other concerns. Prescriptions: Cyclobenzaprine [Flexeril] 10 mg PO TID PRN #12 tablet PRN Reason: Pain Is patient prescribed a controlled substance at d/c from ED?: No Referrals: Merissa Hunt MD [Primary Care Provider] - 1-2 days Samira Boyd DO [Doctor of Osteopathic Medicine] - 1-2 days Time of Disposition: 17:04
[2024-09-23] MEDS: KETOROLAC 15 MG/ML 1 ML VIAL IVP STA ×2 (12:39→15:59)
[2024-09-23] MEDS: atenoloL 25 MG TAB PO STA (12:58)
[2024-09-23 13:06] LABS: Basophils # (A) 0.1 k/uL (0-0.2); Basophils % (A) 1 %; Eosinophils # (A) 0.3 k/uL (0-0.7); Eosinophils % (A) 2 %; HCT 46.1 % (34.0-46.0); HGB 14.9 gm/dL (11.4-16.0); Lymphocytes # (A) 1.2 k/uL (1.0-4.8); Lymphocytes % (A) 12 %; MCH 27.4 pg (25.0-35.0); MCHC 32.3 g/dL (31.0-37.0); MCV 84.8 fL (80.0-100.0); Mean Platelet Volume 7.4; Monocytes # (A) 0.6 k/uL (0-1.0); Monocytes % (A) 5 %; Neutrophils # (A) 8.3 k/uL (1.3-7.7); Neutrophils % (A) 79 %; Platelet Count 474 k/uL (150-450); RBC 5.43 m/uL (3.80-5.40); RDW 14.2 % (11.5-15.5); WBC 10.6 k/uL (3.8-10.6)
[2024-09-23 13:26] LABS: ALT 15 U/L (4-34); AST 21 U/L (14-36); African American GFR (CKD) 89 (>60 ml/min/1.73 sqM); Albumin 4.3 g/dL (3.5-5.0); Alkaline Phosphatase 78 U/L (38-126); Anion Gap 8 mmol/L; Blood Urea Nitrogen 21 mg/dL (7-17); Calcium 9.9 mg/dL (8.4-10.2); Carbon Dioxide 26 mmol/L (22-30); Chloride 103 mmol/L (98-107); Glucose 142 mg/dL (74-99); Non-African American GFR(CKD) 77 (>60 ml/min/1.73 sqM); Potassium 4.7 mmol/L (3.5-5.1); Sodium 137 mmol/L (137-145); Total Bilirubin 0.9 mg/dL (0.2-1.3)
--- NOTE | 2024-09-23 14:11 | CT ---
EXAMINATION TYPE: CT lumbar spine wo con, CT sacrum wo con CT DLP: 1032 (accession [id number]), 1021 (accession [id number]) mGycm, Automated exposure control for do se reduction was used. DATE OF EXAM: 09/23/2024 1:59 PM COMPARISON: CT pelvis 07/18/2023. CLINICAL INDICATION:Female, 89 years old with history of pain; PHH, pain in lower legs and back start ing today, no prior TECHNIQUE: Multiple axial images were obtained from the midportion of T11 through the to sacrum. Sof t tissue and bone windows in coronal and sagittal planes were obtained and reviewed. 3-D reformats of the bones were created on a separate workstation and submitted for review. Contrast used: none. Oral contrast used: none. FINDINGS: There are 5 lumbar type vertebral bodies without height loss. No acute fracture. Straightening of the normal lumbar lordosis. Dextroconvex curvature of the thoracolumbar spine. Multilevel degenerative d isc disease of the visualized thoracolumbar spine with disc space narrowing, endplate sclerosis, vacu um disc disease, and anterior osteophytosis. Multilevel disc bulges with facet arthropathy resulting in mild central canal stenosis at every lumbar level. Moderate bilateral neural foraminal stenosis on the right at L3-4 L4-L5 and L5-S1. Moderate neural foraminal stenosis on the left at L1-L2, L2-L3, L 4-L5, and L5-S1. Diffuse bone demineralization. Partial visualization of postsurgical changes from bilateral hip arthr oplasty. No evidence of fracture is identified. Degenerative changes of the bilateral SI joints. Atherosclerotic calcification of the aorta and its branches. Minimal bilateral lower lobe visualized subsegmental atelectasis. Small hiatal hernia. IMPRESSION: 1. No evidence for acute fracture. 2. Moderate multilevel degenerative disc disease and facet arthropathy. 3. Moderate bilateral SI joint degenerative changes. [facility], , 09/23/2024 2:08 PM
[2024-09-23 14:38] LABS: Appearance,Urine Clear (Clear); Bilirubin,Urine Negative (Negative); Blood,Urine Trace (Negative); Color,Urine Yellow; Glucose,Urine (UA) Negative (Negative); Ketones,Urine Negative (Negative); Leukocyte Esterase,Urine Negative (Negative); Mucus,Urine Rare /hpf; Nitrite,Urine Negative (Negative); PH, Urine 5.5 (5.0-8.0); Protein,Urine 1+ (Negative); RBC,Urine 3 /hpf (0-5); Specific Gravity,Urine 1.019 (1.001-1.035); Squamous Epithelial Cell,Urine 2 /hpf (0-4); Urobilinogen,Urine <2.0 mg/dL (<2.0); WBC,Urine 2 /hpf (0-5)
[2024-09-23] MEDS: MORPHINE SULFATE 2 MG/ML SYRINGE IVP STA (15:45)
[2024-09-23] MEDS: ONDANSETRON 4 MG/2 ML VIAL IVP STA (15:46)
--- NOTE | 2024-09-23 15:56 | XR ---
EXAMINATION TYPE: XR chest 2V DATE OF EXAM: 09/23/2024 3:52 PM COMPARISON: 11/29/2014 CLINICAL INDICATION: Female, 89 years old with history of htn, TECHNIQUE: XR chest 2V view(s) obtained. FINDINGS: The heart size is prominent. The pulmonary vasculature is normal. The lungs are clear. IMPRESSION: 1. No acute pulmonary process. 2. mild cardiomegaly [facility], , 09/23/2024 3:53 PM
[2024-09-23] MEDS: ORPHENADRINE 30 MG/ML 2 ML VIAL IVP STA (16:00)
[2024-09-23] MEDS: ACET/COD 300 MG/30 MG STARTER PACK 6 TAB BTL PO STA (17:12)
[2024-09-23 17:31] VITALS: BP 197/95; PULSE 81; RESP 16
== END 2024-09-23 17:31 | disposition home or self-care (01) ==
LOC: EC 11:56
DX: M54.32 Sciatica, left side (principal); Z88.8 Allergy status to other drugs, medicaments and biological substances
CPT/HCPCS: 36415; 93005; 80053; 85025; 81001; 71046; 72131; 72192; 99284; 96374; 96375; 96376; J2360; J1885

== ENCOUNTER 2024-09-25 08:40 | Inpatient (IN) | payer MEDICARE ==
--- NOTE | 2024-09-25 09:10 | ED ---
General Adult HPI - General Chief complaint: Weakness Stated complaint: Weakness in legs Time Seen by Provider: 09/25/24 08:50 Source: patient, EMS, RN notes reviewed, old records reviewed Mode of arrival: EMS - History of Present Illness Initial comments: This is an 89-year-old female who presents to the emergency department stating that over the last few days her legs are getting weaker and weaker to the point where she can no longer stand today. Patient states she was seen 2 days ago and had a CAT scan and then sent home but when she got home she is having a very difficult time standing today she cannot stand at all. Patient states he is unable to lift her leg off the bed at all. Patient denies any injury patient denies any back pain patient denies any other symptoms. Patient states she did have COVID at the beginning of the month on September 15. Patient denies any fever chills patient denies any difficulty breathing shortness of breath. Patient denies any red or swollen legs. - Related Data Home Medications Medication Instructions Recorded Confirmed Lovastatin [Mevacor] 10 mg PO HS 11/29/14 07/10/21 atenoloL [Tenormin] 25 mg PO HS 11/29/14 07/10/21 Cholecalciferol [Vitamin D3 (25 25 mcg PO DAILY 09/01/16 07/10/21 Mcg = 1000 Iu)] Previous Rx's Medication Instructions Recorded Amoxic-Pot Clav 875-125Mg 1 tab PO Q12HR 14 Days #28 tab 07/16/21 [Augmentin 875-125] Nystatin 100,000Unit/gm Cream 1 applic TOPICAL TID gm 07/17/21 [Mycostatin Cream] Pioglitazone [Actos] 30 mg PO DAILY tab 07/17/21 metFORMIN HCL [Glucophage] 500 mg PO BID-W/MEALS tab 07/17/21 Cyclobenzaprine [Flexeril] 10 mg PO TID PRN #12 tablet 09/23/24 Cyclobenzaprine [Flexeril] 10 mg PO TID PRN #12 tablet 09/23/24 Allergies Allergy/AdvReac Type Severity Reaction Status Date / Time adhesive Allergy Rash/Hives Verified 09/25/24 08:46 Review of Systems ROS Statement: Those systems with pertinent positive or pertinent negative responses have been documented in the HPI. ROS Other: All systems not noted in ROS Statement are negative. Past Medical History Past Medical History: Coronary Artery Disease (CAD), Eye Disorder, Hearing Disorder / Deafness, Hyperlipidemia, Hypertension Additional Past Medical History / Comment(s): rt cataract,rt eye glaucoma History of Any Multi-Drug Resistant Organisms: None Reported Past Surgical History: Heart Catheterization With Stent, Joint Replacement, Orthopedic Surgery Additional Past Surgical History / Comment(s): 1997 or 1998 R carotid endartectomy in [place]. 1997 or 1998 cardiac cath with stenting in [place]. Bilateral hip replacements and total R knee,lt cataract and istent Past Anesthesia/Blood Transfusion Reactions: No Reported Reaction Additional Past Anesthesia/Blood Transfusion Reaction / Comment(s): no problems with prior blood transfusion Date of Last Stent Placement:: 1997 or 1998 in [place] Past Psychological History: No Psychological Hx Reported Smoking Status: Never smoker Past Alcohol Use History: None Reported Past Drug Use History: None Reported - Past Family History Father Family Medical History: Myocardial Infarction ([place]) Additional Family Medical History / Comment(s): Father at age 62 yrs of [place]. Mother Family Medical History: Diabetes Mellitus Additional Family Medical History / Comment(s): Mother of an impacted bowel at age 82 or 83yrs. General Exam - General Exam Comments Initial Comments: GENERAL: Patient is well-developed and well-nourished. Patient is nontoxic and well- hydrated and is in no acute distress. ENT: Neck is soft and supple. No significant lymphadenopathy is noted. Oropharynx is clear. Moist mucous membranes. Neck has full range of motion without eliciting any pain. EYES: The sclera were anicteric and conjunctiva were pink and moist. Extraocular movements were intact and pupils were equal round and reactive to light. Eyelids were unremarkable. PULMONARY: Unlabored respirations. Good breath sounds bilaterally. No audible rales rhon chi or wheezing was noted. CARDIOVASCULAR: There is a regular rate and rhythm without any murmurs gallops or rubs. ABDOMEN: Soft and nontender with normal bowel sounds. SKIN: Skin is clear with no lesions or rashes and otherwise unremarkable. NEUROLOGIC: Patient is alert and oriented x3. Cranial nerves II through XII are grossly intact. Patient has significant bilateral leg weakness MUSCULOSKELETAL: Patient is unable to move her legs or lift her legs off the bed she is able to move her feet. LYMPHATICS: No significant lymphadenopathy is noted PSYCHIATRIC: Normal psychiatric evaluation. Course Vital Signs 09/25/24 09/25/24 09/25/24 08:42 10:02 10:49 Temperature 98.2 F Pulse Rate 46 L 48 L 45 L Respiratory 18 18 18 Rate Blood Pressure 148/57 128/53 133/54 O2 Sat by Pulse 94 L 100 94 L Oximetry Medical Decision Making - Medical Decision Making EKG is interpreted by myself EKG shows a sinus bradycardia at 45 bpm SD interval is 211 QRS is 87 QT interval is 537 QTc is 492. Patient's EKG shows no ST segment ovation or depression. Was pt. sent in by a medical professional or institution (, JAMI, SUPPORTIVE EMPLOYMENT CASE MANAGER, urgent care, hospital, or detention...) When possible be specific @ -No Did you speak to anyone other than the patient for history (EMS, parent, family, police, friend...)? What history was obtained from this source @ -No Did you review nursing and triage notes (agree or disagree)? Why? @ -I reviewed and agree with nursing and triage notes Were old charts reviewed (outside hosp., previous admission, EMS record, old EKG, old radiological studies, urgent care reports/EKG's, detention records)? Report findings @ -No old charts were reviewed Differential Diagnosis? @ -Differential Weakness: Hypoglycemia, shock, sepsis, hyponatremia, anemia, infection, [place], ETOH, adverse medicine reaction, overdose, stroke, this is not meant to be an all-inclusive list. EKG interpreted by me (3pts min.). @ -As above X-rays interpreted by me (1pt min.). @ -Chest x-ray shows no acute CT interpreted by me (1pt min.). @ -CT of the brain shows no acute abnormality U/S interpreted by me (1pt. min.). @ -None done What testing was considered but not performed or refused? (CT, X-rays, U/S, labs)? Why? @ -None What meds were considered but not given or refused? Why? @ -None Did you discuss the management of the patient with other professionals (prof horowitz i.e. , JAMI, SUPPORTIVE EMPLOYMENT CASE MANAGER, lab, RT, psych nurse, certified social workers in health care, campus wellness coordinator, teacher, executive officer, casey saw operator)? Give summary @ -I spoke with Dr. Perez he agreed to admit the patient admit the patient wrote admitting orders.Patient had sinus bradycardia and an elevated troponins I did start the patient on heparin though the patient never had any report of chest pain difficulty breathing or diaphoretic episodes. Was smoking cessation discussed for >3mins.? @ -No Was critical care preformed (if so, how long)? @ -35 minutes Were there social determinants of health that impacted care today? How? (Homelessness, low income, unemployed, alcoholism, drug addiction, transportation, low edu. Level, literacy, decrease access to med. care, prison, rehab)? @ -No Was there de-escalation of care discussed even if they declined (Discuss DNR or withdrawal of care, Hospice)? DNR status @ -No What co-morbidities impacted this encounter? (DM, HTN, Smoking, COPD, CAD, Cancer, CVA, ARF, Chemo, Hep., AIDS, mental health diagnosis, sleep apnea, morbid obesity)? @ -None Was patient admitted / discharged? Hospital course, mention meds given and route, prescriptions, significant lab abnormalities, going to OR and other pertinent info. @ -I started the patient on heparin. Patient was never experiencing any chest pain I reviewed the old charts and the old CAT scans of the patient's back. I had no explanation for the bilateral weakness but because the troponin was elevated I wanted to workup the heart first and consult neurology as an inpatient. Undiagnosed new problem with uncertain prognosis? @ -No Drug Therapy requiring intensive monitoring for toxicity (Heparin, Nitro, Insulin, Cardizem)? @ -No Were any procedures done? @ -No Diagnosis/symptom? @ -NSTEMI Acute, or Chronic, or Acute on Chronic? @ -Acute Uncomplicated (without systemic symptoms) or Complicated (systemic symptoms)? @ -Complicated Side effects of treatment? @ -No Exacerbation, Progression, or Severe Exacerbation? @ -No Poses a threat to life or bodily function? How? (Chest pain, [place], [place], pneumonia, PE, COPD, DKA, ARF, appy, cholecystitis, CVA, Diverticulitis, Homicidal, Suicidal, threat to staff... and all critical care pts) @ -Yes this could lead to heart dysfunction and endorgan dysfunction Diagnosis/symptom? @ -Bilateral leg weakness Acute, or Chronic, or Acute on Chronic? @ -Acute Uncomplicated (without systemic symptoms) or Complicated (systemic symptoms)? @ -Complicated Side effects of treatment? @ -None Exacerbation, Progression, or Severe Exacerbation] @ -No Poses a threat to life or bodily function? @ -No Diagnosis/symptom? @ -Sinus bradycardia Acute, or Chronic, or Acute on Chronic? @ -Acute Uncomplicated (without systemic symptoms) or Complicated (systemic symptoms)? @ -Complicated Side effects of treatment? @ -None Exacerbation, Progression, or Severe Exacerbation] @ -No Poses a threat to life or bodily function? @ -Yes this could lead to an even slower heart rate and endorgan dysfunction secondary to perfusion - Lab Data Result diagrams: 09/25/24 09:04 09/25/24 09:04 Lab Results 09/25/24 09/25/24 09/25/24 Range/Units 09:04 09:04 09:04 WBC 9.9 (3.8-10.6) k/uL RBC 5.26 (3.80-5.40) m/uL Hgb 14.3 (11.4-16.0) gm/dL Hct 45.2 (34.0-46.0) % MCV 86.0 (80.0-100.0) fL MCH 27.2 (25.0-35.0) pg MCHC 31.7 (31.0-37.0) g/dL RDW 14.5 (11.5-15.5) % Plt Count 426 (150-450) k/uL MPV 7.2 Neutrophils % 75 % Lymphocytes % 13 % Monocytes % 6 % Eosinophils % 4 % Basophils % 1 % Neutrophils # 7.5 (1.3-7.7) k/uL Lymphocytes # 1.3 (1.0-4.8) k/uL Monocytes # 0.6 (0-1.0) k/uL Eosinophils # 0.4 (0-0.7) k/uL Basophils # 0.1 (0-0.2) k/uL PT 10.6 (10.0-12.5) sec INR 1.0 (<1.2) APTT 26.1 (22.0-30.0) sec Sodium 137 (137-145) mmol/L Potassium 4.7 (3.5-5.1) mmol/L Chloride 100 (98-107) mmol/L Carbon Dioxide 30 (22-30) mmol/L Anion Gap 7 mmol/L BUN 23 H (7-17) mg/dL Creatinine 0.78 (0.52-1.04) mg/dL Est GFR (CKD-EPI)AfAm 78 (>60 ml/min/1.73 sqM) Est GFR (CKD-EPI)NonAf 68 (>60 ml/min/1.73 sqM) Glucose 108 H (74-99) mg/dL Plasma Lactic Acid Evin (0.7-2.0) mmol/L Calcium 9.5 (8.4-10.2) mg/dL Magnesium 1.8 (1.6-2.3) mg/dL Total Bilirubin 1.0 (0.2-1.3) mg/dL AST 24 (14-36) U/L ALT 13 (4-34) U/L Alkaline Phosphatase 62 (38-126) U/L Troponin I (0.000-0.034) ng/mL Total Protein 6.6 (6.3-8.2) g/dL Albumin 3.9 (3.5-5.0) g/dL Urine Color Urine Appearance (Clear) Urine pH (5.0-8.0) Ur Specific [place] (1.001-1.035) Urine Protein (Negative) Urine Glucose (UA) (Negative) Urine Ketones (Negative) Urine Blood (Negative) Urine Nitrite (Negative) Urine Bilirubin (Negative) Urine Urobilinogen (<2.0) mg/dL Ur Leukocyte Esterase (Negative) Urine RBC (0-5) /hpf Urine WBC (0-5) /hpf Ur Squamous Epith Cells (0-4) /hpf Urine Mucus (None) /hpf 09/25/24 09/25/24 09/25/24 Range/Units 09:04 09:04 09:32 WBC (3.8-10.6) k/uL RBC (3.80-5.40) m/uL Hgb (11.4-16.0) gm/dL Hct (34.0-46.0) % MCV (80.0-100.0) fL MCH (25.0-35.0) pg MCHC (31.0-37.0) g/dL RDW (11.5-15.5) % Plt Count (150-450) k/uL MPV Neutrophils % % Lymphocytes % % Monocytes % % Eosinophils % % Basophils % % Neutrophils # (1.3-7.7) k/uL Lymphocytes # (1.0-4.8) k/uL Monocytes # (0-1.0) k/uL Eosinophils # (0-0.7) k/uL Basophils # (0-0.2) k/uL PT (10.0-12.5) sec INR (<1.2) APTT (22.0-30.0) sec Sodium (137-145) mmol/L Potassium (3.5-5.1) mmol/L Chloride (98-107) mmol/L Carbon Dioxide (22-30) mmol/L Anion Gap mmol/L BUN (7-17) mg/dL Creatinine (0.52-1.04) mg/dL Est GFR (CKD-EPI)AfAm (>60 ml/min/1.73 sqM) Est GFR (CKD-EPI)NonAf (>60 ml/min/1.73 sqM) Glucose (74-99) mg/dL Plasma Lactic Acid Evin 2.2 H* (0.7-2.0) mmol/L Calcium (8.4-10.2) mg/dL Magnesium (1.6-2.3) mg/dL Total Bilirubin (0.2-1.3) mg/dL AST (14-36) U/L ALT (4-34) U/L Alkaline Phosphatase (38-126) U/L Troponin I 0.525 H* (0.000-0.034) ng/mL Total Protein (6.3-8.2) g/dL Albumin (3.5-5.0) g/dL Urine Color Colorless Urine Appearance Clear (Clear) Urine pH 5.5 (5.0-8.0) Ur Specific [place] 1.011 (1.001-1.035) Urine Protein Negative (Negative) Urine Glucose (UA) Negative (Negative) Urine Ketones Negative (Negative) Urine Blood Negative (Negative) Urine Nitrite Negative (Negative) Urine Bilirubin Negative (Negative) Urine Urobilinogen <2.0 (<2.0) mg/dL Ur Leukocyte Esterase Trace H (Negative) Urine RBC 1 (0-5) /hpf Urine WBC 4 (0-5) /hpf Ur Squamous Epith Cells 1 (0-4) /hpf Urine Mucus Rare H (None) /hpf Disposition Clinical Impression: Sinus bradycardia, Non-STEMI (non-ST elevated myocardial infarction), Bilateral leg weakness Disposition: ADMITTED IP TO THIS HOSP Referrals: Merissa Hunt MD [Primary Care Provider] - 1-2 days Time of Disposition: 11:05
[2024-09-25 09:12] LABS: Basophils # (A) 0.1 k/uL (0-0.2); Basophils % (A) 1 %; Eosinophils # (A) 0.4 k/uL (0-0.7); Eosinophils % (A) 4 %; HCT 45.2 % (34.0-46.0); HGB 14.3 gm/dL (11.4-16.0); Lymphocytes # (A) 1.3 k/uL (1.0-4.8); Lymphocytes % (A) 13 %; MCH 27.2 pg (25.0-35.0); MCHC 31.7 g/dL (31.0-37.0); Mean Platelet Volume 7.2; Monocytes # (A) 0.6 k/uL (0-1.0); Monocytes % (A) 6 %; Neutrophils # (A) 7.5 k/uL (1.3-7.7); Neutrophils % (A) 75 %; Platelet Count 426 k/uL (150-450); RBC 5.26 m/uL (3.80-5.40); RDW 14.5 % (11.5-15.5); WBC 9.9 k/uL (3.8-10.6)
[2024-09-25 09:26] LABS: ALT 13 U/L (4-34); AST 24 U/L (14-36); African American GFR (CKD) 78 (>60 ml/min/1.73 sqM); Albumin 3.9 g/dL (3.5-5.0); Alkaline Phosphatase 62 U/L (38-126); Anion Gap 7 mmol/L; Blood Urea Nitrogen 23 mg/dL (7-17); Calcium 9.5 mg/dL (8.4-10.2); Carbon Dioxide 30 mmol/L (22-30); Chloride 100 mmol/L (98-107); Glucose 108 mg/dL (74-99); Magnesium 1.8 mg/dL (1.6-2.3); Non-African American GFR(CKD) 68 (>60 ml/min/1.73 sqM); Potassium 4.7 mmol/L (3.5-5.1); Sodium 137 mmol/L (137-145); Total Protein 6.6 g/dL (6.3-8.2)
[2024-09-25 09:31] LABS: Partial Thromboplastin Time 26.1 sec (22.0-30.0); Prothrombin Time 10.6 sec (10.0-12.5)
[2024-09-25 09:37] LABS: Appearance,Urine Clear (Clear); Bilirubin,Urine Negative (Negative); Blood,Urine Negative (Negative); Color,Urine Colorless; Glucose,Urine (UA) Negative (Negative); Ketones,Urine Negative (Negative); Leukocyte Esterase,Urine Trace (Negative); Mucus,Urine Rare /hpf; Nitrite,Urine Negative (Negative); PH, Urine 5.5 (5.0-8.0); Protein,Urine Negative (Negative); RBC,Urine 1 /hpf (0-5); Specific Gravity,Urine 1.011 (1.001-1.035); Squamous Epithelial Cell,Urine 1 /hpf (0-4); Urobilinogen,Urine <2.0 mg/dL (<2.0); WBC,Urine 4 /hpf (0-5)
--- NOTE | 2024-09-25 10:47 | CT ---
EXAMINATION TYPE: CT brain wo con DATE OF EXAM: 09/25/2024 9:58 AM COMPARISON: None. CLINICAL INDICATION: Female, 89 years old with history of Bilateral leg weakness, bilateral leg pain x4 days. pt states her legs won't move TECHNIQUE: CT of the brain is performed utilizing 3 mm thick sections through the posterior fossa and 3 mm thick sections through the remaining calvarium. Study is performed within 24 hours of arrival to the hospital. Contrast used: mL of , (none if empty) CT DLP: 1087.4 mGycm, Automated exposure control for dose reduction was used. FINDINGS: No abnormal hyperdensity is present to suggest an acute intracranial hemorrhage. No mass lesion is evident. No acute infarcts are evident. Minimal periventricular white matter hypodensity is present likely on the basis of chronic white matter ischemic changes. Ventricles and sulci are appropriate for the patient age. Mucosal thickening with minimal air-fluid levels within the right maxillary sinus. Correlate for acut e right maxillary sinusitis. Main paranasal sinuses and mastoid air cells are clear. IMPRESSION: 1. No acute intracranial process. Follow up MRI can be performed as clinically indicated. 2. Minimal chronic appearing periventricular white matter ischemic changes. 3. Clinical consideration for acute right maxillary sinusitis. [facility], , 09/25/2024 10:45 AM
[2024-09-25] MEDS ORDERED: NITROGLYCERIN SL TABS 0.4 MG TAB SUBLINGUAL PRN (11:05)
[2024-09-25] MEDS: HEPARIN SODIUM 1,000 UN/ML (10ML VL) IV ONE (11:21)
[2024-09-25] MEDS: ASPIRIN 81 MG PO STA (11:22)
[2024-09-25] MEDS: HEPARIN SOD,PORK IN 0.45% NACL 25,000 UNIT in 0.45% NACL 1 250ML.BAG IV SCH (11:22)
[2024-09-25] MEDS: NITROGLYCERIN OINT 1 INCH/GM PACKET TOPICAL SCH (12:23)
--- NOTE | 2024-09-25 13:44 | P.CRDCN ---
History of Present Illness History of present illness: HISTORY OF PRESENT ILLNESS: This is a 89-year-old female with a past medical history significant for hypertension, hyperlipidemia, and hypothyroidism. Patient does not follow with a percussion welding machine operator. We have been asked to see the patient in consultation for elevated troponins. Patient examined at the bedside in the emergency room. Patient presented to the hospital with a chief complaint of generalized weakness in both of her legs. She reports having some mild discomfort in her legs as well. The patient denied having any chest pain or pressure. She denied having any shortness of breath. She reports having some occasional swelling in her legs. There is documentation that patient has a history of CAD with previous stenting however patient denies any history of CAD or stenting. She states that she has never had any cardiac problems in the past. Patient's vital signs are stable. Bedside telemetry reveals sinus mechanism with a heart rate in the 50s. DIAGNOSTICS: - EKG reveals sinus bradycardia with a heart rate of 45. - Laboratory data: WBC 9.9. Hemoglobin 14.3. Platelet count 426. Sodium 137. Potassium 4.7. BUN 23. Creatinine 0.78. Lactic acid 2.2. Repeat 1.4. Troponin 0.524. 0.408. - Current home cardiac medications include lovastatin 10 mg at night and atenolol 25 mg at night - Most recent echocardiogram obtained in 2014 revealed ejection fraction 55 to 60% with mild MR and mild TR - Patient underwent dobutamine stress testing in 2015 which was negative for ischemia REVIEW OF SYSTEMS: At the time of my exam: CONSTITUTIONAL: Denies fever or chills. HEENT: Denies blurred vision, vision changes, or eye pain. Denies hemoptysis CARDIOVASCULAR: Denies chest pain. Denies orthopnea. Denies PND. Denies palpitations RESPIRATORY: Denies shortness of breath. GASTROINTESTINAL: Denies abdominal pain. Denies nausea or vomiting. HEMATOLOGIC: Denies bleeding disorders. GENITOURINARY: Denies any blood in urine. SKIN: Denies pruitis. Denies rash. PHYSICAL EXAM: VITAL SIGNS: Reviewed. GENERAL: Well-developed in no acute distress. HEENT: Head is normocephalic. Pupils are equal, round. Sclerae anicteric. Mucous membranes of the mouth are moist. Neck supple. No JVD or thyromegaly LUNGS: Respirations even and unlabored. Lungs essentially clear to auscultation bilaterally. HEART: Regular rate and rhythm. S1 and S2 heard. ABDOMEN: Soft. Nondistended. Nontender. EXTREMITIES: Normal range of motion. No clubbing or cyanosis. Peripheral pulses intact, decreased. No lower extremity edema NEUROLOGIC: Awake and alert. Oriented x 3. ASSESSMENT: Weakness of bilateral lower extremities Elevated troponins, non-STEMI, patient without complaints of chest pain or EKG changes Asymptomatic bradycardia Hypertension Hyperlipidemia Hypothyroidism PLAN: Patient presenting to the emergency room with weakness of bilateral lower extremities. Incidentally, the patient was found to have elevated troponins. However patient is without any cardiac complaints. We will continue IV heparin at this time Obtain 2D echo to assess cardiac structure and function Add aspirin 81 mg daily and atorvastatin 40 mg at night Hold atenolol secondary to sinus bradycardia Check TSH Neurology has been consulted. Await recommendations. Further recommendations pending patient course Nurse practitioner note has been reviewed by physician. Signing provider agrees with the documented findings, assessment, and plan of care documented by [employer] as a scribe. Past Medical History Past Medical History: Coronary Artery Disease (CAD), Eye Disorder, Hearing Disorder / Deafness, Hyperlipidemia, Hypertension Additional Past Medical History / Comment(s): rt cataract,rt eye glaucoma History of Any Multi-Drug Resistant Organisms: None Reported Past Surgical History: Heart Catheterization With Stent, Joint Replacement, Orthopedic Surgery Additional Past Surgical History / Comment(s): 1997 or 1998 R carotid endartectomy in [place]. 1997 or 1998 cardiac cath with stenting in [place]. Bilateral hip replacements and total R knee,lt cataract and istent Past Anesthesia/Blood Transfusion Reactions: No Reported Reaction Additional Past Anesthesia/Blood Transfusion Reaction / Comment(s): no problems with prior blood transfusion Date of Last Stent Placement:: 1997 or 1998 in [place] Past Psychological History: No Psychological Hx Reported Smoking Status: Never smoker Past Alcohol Use History: None Reported Past Drug Use History: None Reported - Past Family History Father Family Medical History: Myocardial Infarction ([place]) Additional Family Medical History / Comment(s): Father at age 62 yrs of [place]. Mother Family Medical History: Diabetes Mellitus Additional Family Medical History / Comment(s): Mother of an impacted bowel at age 82 or 83yrs. Medications and Allergies Home Medications Medication Instructions Recorded Confirmed Type Lovastatin [Mevacor] 10 mg PO HS 11/29/14 09/25/24 History atenoloL [Tenormin] 25 mg PO HS 11/29/14 09/25/24 History Levothyroxine Sodium [Synthroid] 50 mcg PO DAILY 09/25/24 09/25/24 History Vitamin D3/Vitamin K2 (Mk4) 1 tab PO DAILY@1200 09/25/24 09/25/24 History [Vitamin K2 Plus D3 Tablet] Allergies Allergy/AdvReac Type Severity Reaction Status Date / Time adhesive Allergy Rash/Hives Verified 09/25/24 11:05 Physical Exam Vitals: Vital Signs Temp Pulse Resp BP Pulse Ox 09/25/24 12:56 52 L 18 137/55 98 09/25/24 11:36 50 L 18 140/60 95 09/25/24 10:49 45 L 18 133/54 94 L 09/25/24 10:02 48 L 18 128/53 100 09/25/24 08:42 98.2 F 46 L 18 148/57 94 L Intake and Output 09/24/24 09/25/24 09/25/24 22:59 06:59 14:59 Other: Weight 72.575 kg Results 09/25/24 09:04 09/25/24 09:04 Cardiac Enzymes 09/25/24 09/25/24 09/25/24 Range/Units 09:04 09:04 11:26 AST 24 (14-36) U/L Troponin I 0.525 H* 0.408 H* (0.000-0.034) ng/mL Coagulation 09/25/24 Range/Units 09:04 PT 10.6 (10.0-12.5) sec APTT 26.1 (22.0-30.0) sec CBC 09/25/24 Range/Units 09:04 WBC 9.9 (3.8-10.6) k/uL RBC 5.26 (3.80-5.40) m/uL Hgb 14.3 (11.4-16.0) gm/dL Hct 45.2 (34.0-46.0) % Plt Count 426 (150-450) k/uL Comprehensive Metabolic Panel 09/25/24 Range/Units 09:04 Sodium 137 (137-145) mmol/L Potassium 4.7 (3.5-5.1) mmol/L Chloride 100 (98-107) mmol/L Carbon Dioxide 30 (22-30) mmol/L BUN 23 H (7-17) mg/dL Creatinine 0.78 (0.52-1.04) mg/dL Glucose 108 H (74-99) mg/dL Calcium 9.5 (8.4-10.2) mg/dL AST 24 (14-36) U/L ALT 13 (4-34) U/L Alkaline Phosphatase 62 (38-126) U/L Total Protein 6.6 (6.3-8.2) g/dL Albumin 3.9 (3.5-5.0) g/dL Current Medications Generic Name Dose Route Start Last Admin Trade Name Freq PRN Reason Stop Dose Admin Aspirin 325 mg 09/26/24 09:00 Aspirin 325 Mg Tab PO DAILY BOBBY Heparin Sodium/Sodium Chloride 250 mls @ 8.709 mls/hr 09/25/24 11:00 09/25/24 11:22 25,000 unit/ Sodium Chloride IV 12 units/kg/hr .Q24H BOBBY 8.709 mls/hr Administration Protocol 12 UNITS/KG/HR Nitroglycerin 0.4 mg 09/25/24 11:05 Nitroglycerin Sl Tabs 0.4 Mg Tab SUBLINGUAL Q5M PRN Chest Pain Nitroglycerin 1 inch 09/25/24 12:00 09/25/24 12:23 Nitroglycerin Oint 1 Inch/Gm Packet TOPICAL Not Given Q6HR BOBBY Intake and Output 09/24/24 09/25/24 09/25/24 22:59 06:59 14:59 Other: Weight 72.575 kg Patient Weight 09/26/24 06:59 Weight 72.575 kg 09/25/24 09:04 09/25/24 09:04
--- NOTE | 2024-09-25 13:51 | P.CNNES ---
History of Present Illness Consult date: 09/25/24 Reason for Consult: Bilateral lower extremity weakness History of Present Illness: The patient is an 89-year-old female who was seen in neurologic consultation on September 25, 2024, in collaboration with Reshma Jones, via teleneurology. Patient seen in the emergency department. She reports that she came into the emergency department because she was unable to stand. She says that her legs have been getting weaker over the past couple days. This morning, she was unable to move her legs in the bed and was unable to stand. She denies recent injury to her legs and her back. She denies back pain. She denies changes in her ability to control bladder and bowels. She denies numbness in her lower extremities. She denies saddle anesthesia. She reports pain in her legs. The patient denies a history of similar symptoms. She states that her arms and hands are okay. She denies difficulty breathing, speaking and swallowing. The patient does report that she is able to wiggle her toes and move her ankle somewhat. The patient does report that on September 14 of this year, she felt as if she had a head cold. She took a test for COVID-19 and was found to be positive. She reports that she lost her sense of smell. This did return. CT scan of the brain was performed in the emergency department. There is no evidence of acute hemorrhage or infarct. The patient did have CT of the lumbar spine, a few days ago. There is reported to be multilevel disc bulge and mild to moderate degrees of stenosis. Laboratory evaluation at this point in time reveals an elevated lactic acid level. The patient's troponins are elevated and she is currently being treated for myocardial infarction. She was started on heparin. Past Medical History Past Medical History: Coronary Artery Disease (CAD), Eye Disorder, Hearing Disorder / Deafness, Hyperlipidemia, Hypertension Additional Past Medical History / Comment(s): rt cataract,rt eye glaucoma History of Any Multi-Drug Resistant Organisms: None Reported Past Surgical History: Heart Catheterization With Stent, Joint Replacement, Orthopedic Surgery Additional Past Surgical History / Comment(s): 1997 or 1998 R carotid endartectomy in [place]. 1997 or 1998 cardiac cath with stenting in [place]. Bilateral hip replacements and total R knee,lt cataract and istent Past Anesthesia/Blood Transfusion Reactions: No Reported Reaction Additional Past Anesthesia/Blood Transfusion Reaction / Comment(s): no problems with prior blood transfusion Date of Last Stent Placement:: 1997 or 1998 in [place] Past Psychological History: No Psychological Hx Reported Smoking Status: Never smoker Past Alcohol Use History: None Reported Past Drug Use History: None Reported - Past Family History Father Family Medical History: Myocardial Infarction ([place]) Additional Family Medical History / Comment(s): Father at age 62 yrs of [place]. Mother Family Medical History: Diabetes Mellitus Additional Family Medical History / Comment(s): Mother of an impacted bowel at age 82 or 83yrs. Medications and Allergies Home Medications Medication Instructions Recorded Confirmed Type Lovastatin [Mevacor] 10 mg PO HS 11/29/14 09/25/24 History atenoloL [Tenormin] 25 mg PO HS 11/29/14 09/25/24 History Levothyroxine Sodium [Synthroid] 50 mcg PO DAILY 09/25/24 09/25/24 History Vitamin D3/Vitamin K2 (Mk4) 1 tab PO DAILY@1200 09/25/24 09/25/24 History [Vitamin K2 Plus D3 Tablet] Allergies Allergy/AdvReac Type Severity Reaction Status Date / Time adhesive Allergy Rash/Hives Verified 09/25/24 11:05 Physical Examination - Vital Signs Vital Signs: Vital Signs Temp Pulse Resp BP Pulse Ox 09/25/24 12:56 52 L 18 137/55 98 09/25/24 11:36 50 L 18 140/60 95 09/25/24 10:49 45 L 18 133/54 94 L 09/25/24 10:02 48 L 18 128/53 100 09/25/24 08:42 98.2 F 46 L 18 148/57 94 L Intake and Output 09/24/24 09/25/24 09/25/24 22:59 06:59 14:59 Other: Weight 72.575 kg General: The patient is reclining in the bed. She is well-nourished, well- developed and in no acute distress. HEENT: Head is atraumatic, normocephalic. Fundus not visualized. There is no scleral icterus. Mucous membranes are moist. Neck: Supple without carotid bruits. There is no nuchal rigidity. There is no Lhermitte sign. Heart: Regular rate and rhythm Lungs: Essentially clear to auscultation Extremities: Without edema Neurological examination Mental status: The patient is awake, alert and oriented x 3. Her speech is clear. There is no dysarthria or aphasia. Cranial nerves: Pupils are equal at 3 mm and reactive. Visual lepe are full to confrontation. Extraocular movements are intact. Facial sensation is intact. There is no facial asymmetry. Hearing is grossly intact. Uvula and palate are midline. Shoulder shrug is symmetric. Tongue protrudes midline. Motor: Upper extremity strength: Pow[employer]ter bilaterally 5/5, triceps, biceps and deltoids 5/5. Lower extremity strength: Hip flexors 0/5, hip abductors and adductors 0/5. There is minimal internal and external rotation of the hips. Bilateral ankle plantar flexors 3/5. Right dorsiflexor 5/5. Left dorsiflexor 4/5. Sensation: Intact to light touch throughout. There is no extinction with double simultaneous stimulation Coordination: [id number] testing is intact bilaterally. [id number] testing is unable to be assessed Deep tendon reflexes: Upper extremity reflexes 2+/4+. Lower extremity reflexes 1+/4+. Gait: Unable to be assessed Results CT scan of the brain images have been personally viewed. I agree with the radiologist interpretation - Laboratory Findings CBC and BMP: 09/25/24 09:04 09/25/24 09:04 Abnormal Lab Findings: Abnormal Labs 09/25/24 09/25/24 09/25/24 09:04 09:04 09:04 BUN 23 H Glucose 108 H Plasma Lactic Acid Evin 2.2 H* Troponin I 0.525 H* Ur Leukocyte Esterase Urine Mucus 09/25/24 09/25/24 09:32 11:26 BUN Glucose Plasma Lactic Acid Evin Troponin I 0.408 H* Ur Leukocyte Esterase Trace H Urine Mucus Rare H Assessment and Plan Assessment: 1. 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 Elevated troponins, with concern for myocardial infarction Plan: 1. Impressions and plan have been discussed with the emergency medicine doctor. I am concerned about the need for urgent lumbar puncture, as the sooner diagnosis of Guillain-Salamanca syndrome is ruled in or out but better. The sooner IV IgG is started for this patient but better her prognosis is 2. Initially I ordered lumbar puncture and CSF studies however those were placed on hold because of heparin drip. If cardiology does not feel the heparin drip is necessary, would recommend stat lumbar puncture. If positive for Priyank llain-Salamanca syndrome, would begin IV IgG per protocol 3. Physical therapy evaluation and treat, associated with IV IgG treatment Thank you for allowing us to participate in the care of this patient Time with Patient: Greater than 30 (60 minutes were spent caring for this patient today including, obtaining history, examining the patient, reviewing imaging, chart documentation, labs, placing orders and creating this note)
--- NOTE | 2024-09-25 13:51 | P.HPIM ---
History of Present Illness H&P Date: 09/25/24 Mikki Garcia, is an 89-year-old female who presented to [facility] with a chief complaint of severe bilateral lower extremity weakness, patient presented 1 day prior to this admission to the emergency room with similar complaint of bilateral lower extremity weakness, at that time CT scanning of the lumbar spine was done, and did not reveal any acute abnormalities she was discharged to home, however she return to emergency room due to worsening symptoms. She was evaluated in the emergency room vital examination on presentation revealed a temperature of 98.2 pulse 46 respiration 18 blood pressure 148/57 pulse ox 94% on room air Laboratory data reveals a white blood count of 9.9 hemoglobin 14.3 platelet count 426 BUN 23 creatinine 0.78 lactic acid 2.2 troponin level 0.5-5 Testing in the emergency room revealed CT scan of the brain revealed no acute intracranial process, minimal chronic appearing periventricular white matter ischemic changes. Patient was admitted to medical floor for further evaluation and treatment Past Medical History Past Medical History: Coronary Artery Disease (CAD), Eye Disorder, Hearing Disorder / Deafness, Hyperlipidemia, Hypertension Additional Past Medical History / Comment(s): rt cataract,rt eye glaucoma History of Any Multi-Drug Resistant Organisms: None Reported Past Surgical History: Heart Catheterization With Stent, Joint Replacement, Orthopedic Surgery Additional Past Surgical History / Comment(s): 1997 or 1998 R carotid endartectomy in [place]. 1997 or 1998 cardiac cath with stenting in [place]. Bilateral hip replacements and total R knee,lt cataract and istent Past Anesthesia/Blood Transfusion Reactions: No Reported Reaction Additional Past Anesthesia/Blood Transfusion Reaction / Comment(s): no problems with prior blood transfusion Date of Last Stent Placement:: 1997 or 1998 in [place] Past Psychological History: No Psychological Hx Reported Smoking Status: Never smoker Past Alcohol Use History: None Reported Past Drug Use History: None Reported - Past Family History Father Family Medical History: Myocardial Infarction ([place]) Additional Family Medical History / Comment(s): Father at age 62 yrs of [place]. Mother Family Medical History: Diabetes Mellitus Additional Family Medical History / Comment(s): Mother of an impacted bowel at age 82 or 83yrs. Medications and Allergies Home Medications Medication Instructions Recorded Confirmed Type Lovastatin [Mevacor] 10 mg PO HS 11/29/14 09/25/24 History atenoloL [Tenormin] 25 mg PO HS 11/29/14 09/25/24 History Levothyroxine Sodium [Synthroid] 50 mcg PO DAILY 09/25/24 09/25/24 History Vitamin D3/Vitamin K2 (Mk4) 1 tab PO DAILY@1200 09/25/24 09/25/24 History [Vitamin K2 Plus D3 Tablet] Allergies Allergy/AdvReac Type Severity Reaction Status Date / Time adhesive Allergy Rash/Hives Verified 09/25/24 11:05 Physical Exam Vitals: Vital Signs Temp Pulse Resp BP Pulse Ox 09/25/24 12:56 52 L 18 137/55 98 09/25/24 11:36 50 L 18 140/60 95 09/25/24 10:49 45 L 18 133/54 94 L 09/25/24 10:02 48 L 18 128/53 100 09/25/24 08:42 98.2 F 46 L 18 148/57 94 L Intake and Output 09/24/24 09/25/24 09/25/24 22:59 06:59 14:59 Other: Weight 72.575 kg In general patient is alert and oriented x 3 in no distress HEENT head normocephalic and atraumatic Neck is supple no JVD no goiter no lymphadenopathy no carotid bruit Chest examination is clear to auscultation no crackles no wheezing Cardiac exam reveals regular heart sounds S1 and S2 no gallops no murmurs Abdomen is soft nontender no organomegaly with normal bowel sounds Extremity exam reveals no edema no cyanosis or clubbing Neurological examination reveals significant bilateral lower extremity weakness left worse than right. Results CBC & Chem 7: 09/25/24 09:04 09/25/24 09:04 Labs: Abnormal Lab Results - Last 24 Hours (Table) 09/25/24 09/25/24 09/25/24 Range/Units 09:04 09:04 09:04 BUN 23 H (7-17) mg/dL Glucose 108 H (74-99) mg/dL Plasma Lactic Acid Evin 2.2 H* (0.7-2.0) mmol/L Troponin I 0.525 H* (0.000-0.034) ng/mL Ur Leukocyte Esterase (Negative) Urine Mucus (None) /hpf 09/25/24 09/25/24 Range/Units 09:32 11:26 BUN (7-17) mg/dL Glucose (74-99) mg/dL Plasma Lactic Acid Evin (0.7-2.0) mmol/L Troponin I 0.408 H* (0.000-0.034) ng/mL Ur Leukocyte Esterase Trace H (Negative) Urine Mucus Rare H (None) /hpf Assessment and Plan Plan: Severe bilateral lower extremity weakness Elevated troponin level on presentation Bradycardia on presentation Lactic acidosis Recent history of osteomyelitis of the right foot Recent history of acute COVID-19 infection Underlying history of diabetes mellitus type 2, with poor control, last hemoglobin A1c was 11.2 Underlying history of hypothyroidism Underlying history of hypertension Underlying history of hyperlipidemia Underlying history of coronary artery disease At this time patient will be admitted to medical floor She was started on IV heparin in the emergency room due to elevated troponin level Cardiology consultation and neurology consultation were requested in the emergency room Home medication reviewed and reordered At this time will discontinue metformin due to lactic acidosis and discontinue statin due to severe lower extremity weakness, will discontinue beta-jaime due to bradycardia For DVT prophylaxis patient now is on IV heparin Will follow closely
--- NOTE | 2024-09-25 14:23 | US ---
EXAMINATION TYPE: US venous doppler duplex LE BI DATE OF EXAM: 09/25/2024 2:15 PM COMPARISON: NONE CLINICAL INDICATION: Female, 89 years old with history of Lower extremity pain; Weakness; Hx CAD w ca th and HTN; Fell last night, TECHNIQUE: The lower extremity deep venous system is examined utilizing real time linear array sonog emely with graded compression, color doppler sonography, and spectral doppler. SIDE PERFORMED: Bilateral FINDINGS: VESSELS IMAGED: Common Femoral Vein Deep Femoral Vein Greater Saphenous Vein * Femoral Vein Popliteal Vein Small Saphenous Vein * Proximal Calf Veins (* superficial vessels) Right Leg: Negative for DVT, Color Doppler imaging shows patency of the vessels. Spectral waveforms are within normal limits. Left Leg: Negative for DVT, Color Doppler imaging shows patency of the vessels. Spectral waveforms a re within normal limits. IMPRESSION: No ultrasound evidence for deep venous thrombosis. [facility], , 09/25/2024 2:21 PM
[2024-09-25 16:37] LABS: Creatine Kinase 31 U/L (30-135)
[2024-09-25 18:05] LABS: T4, Free (Free Thyroxine) 1.16 ng/dL (0.78-2.19)
[2024-09-25] MEDS ORDERED: atenoloL 25 MG TAB PO SCH (21:00)
[2024-09-25] MEDS ORDERED: ATORVASTATIN 40 MG TAB PO SCH (21:00)
[2024-09-26] MEDS: ACETAMINOPHEN TAB 325 MG TAB PO PRN (01:07)
[2024-09-26] MEDS: LEVOTHYROXINE 50 MCG TAB PO SCH (06:56)
[2024-09-26] MEDS: ASPIRIN 81 MG PO SCH (08:14)
[2024-09-26] MEDS ORDERED: ASPIRIN 325 MG TAB PO SCH (09:00)
--- NOTE | 2024-09-26 09:32 | XR ---
EXAMINATION TYPE: XR chest 2V DATE OF EXAM: 09/26/2024 9:24 AM COMPARISON: None. CLINICAL INDICATION: Female, 89 years old with history of fever, acute illness, TECHNIQUE: XR chest 2V view(s) obtained. FINDINGS: The heart size is prominent. The pulmonary vasculature is normal. The lungs are clear. IMPRESSION: 1. No acute pulmonary process. 2. Cardiomegaly [facility], , 09/26/2024 9:30 AM
--- NOTE | 2024-09-26 09:36 | P.PN ---
Subjective Progress Note Date: 09/26/24 Mikki Garcia, is an 89-year-old female who presented to [facility] with a chief complaint of severe bilateral lower extremity weakness, patient presented 1 day prior to this admission to the emergency room with similar complaint of bilateral lower extremity weakness, at that time CT scanni ng of the lumbar spine was done, and did not reveal any acute abnormalities she was discharged to home, however she return to emergency room due to worsening symptoms. She was evaluated in the emergency room vital examination on presentation revealed a temperature of 98.2 pulse 46 respiration 18 blood pressure 148/57 pulse ox 94% on room air Laboratory data reveals a white blood count of 9.9 hemoglobin 14.3 platelet count 426 BUN 23 creatinine 0.78 lactic acid 2.2 troponin level 0.5-5 Testing in the emergency room revealed CT scan of the brain revealed no acute intracranial process, minimal chronic appearing periventricular white matter ischemic changes. Patient was admitted to medical floor for further evaluation and treatment On 09/26/2024 patient is alert and oriented x 3. Patient had elevated temp last night 100.2. Patient is complaining of some abdominal pain reports she has not had a bowel movement in 4 days will order abdomen CT and also blood culture. Chest x-ray COVID-19 and influenza ordered infectious disease services will be consulted. Neurology following at this time recommending possible lumbar puncture for Guesther Salamanca patient is currently on a heparin drip for elevated troponins awaiting cardiology input. Patient denies chest pain. Patient denies nausea vomiting or diarrhea. Patient denies any urinary burning or frequency Objective - Vital Signs Vital signs: Vital Signs Temp 97.9 F 09/26/24 08:00 Pulse 69 09/26/24 08:00 Resp 18 09/26/24 08:00 BP 140/66 09/26/24 08:00 Pulse Ox 98 09/26/24 08:00 FiO2 Intake & Output 09/25/24 09/26/24 09/26/24 18:59 06:59 18:59 Intake Total 181.544 70.28 Output Total 400 Balance 181.544 -329.72 Weight 72.575 kg Intake: Intake, IV Titration 61.544 70.28 Amount Heparin Sod,Pork in 0.45% 61.544 70.28 NaCl 25,000 unit In 0.45 % NaCl 1 250ml.bag @ 12 UNITS/KG/HR 8.709 mls/hr IV .Q24H [facility] Rx#: [id number] Oral 120 Output: Urine 400 - Exam In general patient is alert and oriented x 3 in no distress HEENT head normocephalic and atraumatic Neck is supple no JVD no goiter no lymphadenopathy no carotid bruit Chest examination is clear to auscultation no crackles no wheezing Cardiac exam reveals regular heart sounds S1 and S2 no gallops no murmurs Abdomen is soft nontender no organomegaly with normal bowel sounds Extremity exam reveals no edema no cyanosis or clubbing Neurological examination reveals significant bilateral lower extremity weakness left worse than right. - Labs CBC & Chem 7: 09/25/24 09:04 09/25/24 09:04 Labs: Abnormal Lab Results - Last 24 Hours (Table) 09/25/24 09/25/24 09/25/24 Range/Units 09:04 09:32 11:26 APTT (22.0-30.0) sec Troponin I 0.525 H* 0.408 H* (0.000-0.034) ng/mL TSH (0.465-4.680) mIU/L Ur Leukocyte Esterase Trace H (Negative) Urine Mucus Rare H (None) /hpf 09/25/24 09/25/24 09/25/24 Range/Units 15:45 15:45 17:37 APTT 37.0 H (22.0-30.0) sec Troponin I 0.373 H* (0.000-0.034) ng/mL TSH 6.040 H (0.465-4.680) mIU/L Ur Leukocyte Esterase (Negative) Urine Mucus (None) /hpf 09/26/24 Range/Units 00:52 APTT 50.7 H (22.0-30.0) sec Troponin I (0.000-0.034) ng/mL TSH (0.465-4.680) mIU/L Ur Leukocyte Esterase (Negative) Urine Mucus (None) /hpf Assessment and Plan Plan: Severe bilateral lower extremity weakness Elevated troponin level on presentation Bradycardia on presentation Lactic acidosis Febrile. Recent history of osteomyelitis of the right foot Recent history of acute COVID-19 infection Underlying history of diabetes mellitus type 2, with poor control, last hemoglobin A1c was 11.2 Underlying history of hypothyroidism Underlying history of hypertension Underlying history of hyperlipidemia Underlying history of coronary artery disease At this time patient will be admitted to medical floor She was started on IV heparin in the emergency room due to elevated troponin level Cardiology consultation and neurology consultation were requested in the emergency room Home medication reviewed and reordered At this time will discontinue metformin due to lactic acidosis and discontinue statin due to severe lower extremity weakness, will discontinue beta-jaime due to bradycardia For DVT prophylaxis patient now is on IV heparin Will follow closely
[2024-09-26 10:18] LABS: Chol/HDL Ratio 3.67 Ratio; LDL Cholesterol,Calculated 107.1 mg/dL (0.0-131.0)
--- NOTE | 2024-09-26 11:12 | CT ---
EXAMINATION TYPE: CT abdomen pelvis wo con DATE OF EXAM: 09/26/2024 10:59 AM COMPARISON: None. CLINICAL INDICATION: Female, 89 years old with history of abdominal pain and fever, mid abdominal jacobo n, fever, constipation x3 days TECHNIQUE: Axial images were obtained from above the diaphragm to the pubic rami in the axial plane a t 5 mm thick sections. Reconstructed images are reviewed on the computer in the coronal plane. CONTRAST: mL of . Study performed without Oral Contrast DLP: 780.1 mGycm, Automated exposure control for dose reduction was used. FINDINGS: Limited CT sections are obtained the lung bases. The lung bases are clear. CT ABDOMEN: Small hiatal hernia present Liver: Normal Spleen: Normal Pancreas: Normal Adrenal glands: The adrenal glands are normal. Gallbladder: Small gallstones are present Kidneys: No masses are evident. No hydronephrosis is present. No cysts are present. Delayed images were obtained through the kidneys, which remain unremarkable. Aorta: Vascular calcification is within the aorta. Inferior vena cava: Normal. CT PELVIS: Lower pelvis is limited due to bilateral hip prostheses. Loops of bowel within the abdomen and pelvis are normal. This study is without oral contrast limi ting bowel evaluation Appendix: Normal as visualized. Urinary bladder: Unremarkable limited visualized Genitourinary structures: Uterus is normal. Adnexa are normal. Osseous structures: No suspicious lytic or sclerotic lesions. IMPRESSION: 1. Cholelithiasis. 2. Small hiatal hernia. [facility], , 09/26/2024 11:09 AM
[2024-09-26 11:45] LABS: Basophils # (A) 0.1 k/uL (0-0.2); Basophils % (A) 0 %; Eosinophils # (A) 0.1 k/uL (0-0.7); Eosinophils % (A) 1 %; HCT 42.2 % (34.0-46.0); HGB 13.3 gm/dL (11.4-16.0); Lymphocytes % (A) 8 %; MCH 27.1 pg (25.0-35.0); MCHC 31.6 g/dL (31.0-37.0); MCV 85.7 fL (80.0-100.0); Mean Platelet Volume 8.1; Monocytes # (A) 0.8 k/uL (0-1.0); Monocytes % (A) 6 %; Neutrophils # (A) 11.4 k/uL (1.3-7.7); Neutrophils % (A) 84 %; Platelet Count 372 k/uL (150-450); RBC 4.92 m/uL (3.80-5.40); RDW 14.9 % (11.5-15.5); WBC 13.5 k/uL (3.8-10.6)
[2024-09-26] MEDS ORDERED: NON FORMULARY DRUG (Vitamin D3/Vitamin K2 (Mk4) [Vitamin K2 Plus D3 Tablet] 1 EACH Tablet) PO SCH (12:00)
[2024-09-26 12:01] LABS: ALT 11 U/L (4-34); AST 15 U/L (14-36); African American GFR (CKD) 90 (>60 ml/min/1.73 sqM); Albumin 3.5 g/dL (3.5-5.0); Alkaline Phosphatase 65 U/L (38-126); Anion Gap 3 mmol/L; Blood Urea Nitrogen 25 mg/dL (7-17); Calcium 8.9 mg/dL (8.4-10.2); Carbon Dioxide 29 mmol/L (22-30); Chloride 101 mmol/L (98-107); Glucose 117 mg/dL (74-99); Non-African American GFR(CKD) 78 (>60 ml/min/1.73 sqM); Potassium 4.6 mmol/L (3.5-5.1); Sodium 133 mmol/L (137-145); Total Bilirubin 1.3 mg/dL (0.2-1.3)
--- NOTE | 2024-09-26 12:41 | P.PN ---
Subjective HISTORY OF PRESENT ILLNESS: This is a 89-year-old female with a past medical history significant for hypertension, hyperlipidemia, and hypothyroidism. Patient does not follow with a food analyst. We have been asked to see the patient in consultation for elevated troponins. Patient examined at the bedside in the emergency room. Patient presented to the hospital with a chief complaint of generalized weakness in both of her legs. She reports having some mild discomfort in her legs as well. The patient denied having any chest pain or pressure. She denied having any shortness of breath. She reports having some occasional swelling in her legs. There is documentation that patient has a history of CAD with previous stenting however patient denies any history of CAD or stenting. She states that she has never had any cardiac problems in the past. Patient's vital signs are stable. Bedside telemetry reveals sinus mechanism with a heart rate in the 50s. DIAGNOSTICS: - EKG reveals sinus bradycardia with a heart rate of 45. - Laboratory data: WBC 9.9. Hemoglobin 14.3. Platelet count 426. Sodium 137. Potassium 4.7. BUN 23. Creatinine 0.78. Lactic acid 2.2. Repeat 1.4. Troponin 0.524. 0.408. - Current home cardiac medications include lovastatin 10 mg at night and atenolol 25 mg at night - Most recent echocardiogram obtained in 2014 revealed ejection fraction 55 to 60% with mild MR and mild TR - Patient underwent dobutamine stress testing in 2014 which was negative for ischemia 09/26/2024 Patient examined this morning at the bedside. Patient denies chest pain or pressure. She denies shortness of breath. Vital signs are stable. She remains on IV heparin. She continues to have lower extremity weakness. PHYSICAL EXAM: VITAL SIGNS: Reviewed. GENERAL: Well-developed in no acute distress. HEENT: Head is normocephalic. Pupils are equal, round. Sclerae anicteric. Mucous membranes of the mouth are moist. Neck supple. No JVD or thyromegaly LUNGS: Respirations even and unlabored. Lungs essentially clear to auscultation bilaterally. HEART: Regular rate and rhythm. S1 and S2 heard. ABDOMEN: Soft. Nondistended. Nontender. EXTREMITIES: Normal range of motion. No clubbing or cyanosis. Peripheral pulses intact, decreased. No lower extremity edema NEUROLOGIC: Awake and alert. Oriented x 3. ASSESSMENT: Weakness of bilateral lower extremities Elevated troponins, non-STEMI, patient without complaints of chest pain or EKG changes Asymptomatic bradycardia Hypertension Hyperlipidemia Hypothyroidism PLAN: Patient presenting to the emergency room with weakness of bilateral lower extremities. Incidentally, the patient was found to have elevated troponins. However patient is without any cardiac complaints. Await results of 2D echo Continue with IV heparin until tomorrow. However, neurology is wanting to perform LP. IV heparin can be discontinued at any time if neurology wishes to perform LP Continue aspirin Atorvastatin discontinued by primary medicine Atenolol discontinued secondary to sinus bradycardia on admission Further recommendations pending patient course Nurse practitioner note has been reviewed by physician. Signing provider agrees with the documented findings, assessment, and plan of care documented by [employer] as a scribe. Objective - Vital Signs Vital signs: Vital Signs Temp 97.9 F 09/26/24 08:00 Pulse 69 09/26/24 08:00 Resp 18 09/26/24 08:00 BP 140/66 09/26/24 08:00 Pulse Ox 98 09/26/24 08:00 FiO2 Intake & Output 09/25/24 09/26/24 09/26/24 18:59 06:59 18:59 Intake Total 181.544 70.28 354.311 Output Total 400 250 Balance 181.544 -329.72 104.311 Weight 72.575 kg Intake: Intake, IV Titration 61.544 70.28 114.311 Amount Heparin Sod,Pork in 0.45% 61.544 70.28 114.311 NaCl 25,000 unit In 0.45 % NaCl 1 250ml.bag @ 12 UNITS/KG/HR 8.709 mls/hr IV .Q24H [facility] Rx#: [id number] Oral 120 240 Output: Urine 400 250 Other: # Voids 1 - Labs CBC & Chem 7: 09/26/24 10:58 09/26/24 10:58 Labs: Abnormal Lab Results - Last 24 Hours (Table) 09/25/24 09/25/24 09/25/24 Range/Units 15:45 15:45 17:37 WBC (3.8-10.6) k/uL Neutrophils # (1.3-7.7) k/uL APTT 37.0 H (22.0-30.0) sec Sodium (137-145) mmol/L BUN (7-17) mg/dL Glucose (74-99) mg/dL Troponin I 0.373 H* (0.000-0.034) ng/mL Total Protein (6.3-8.2) g/dL TSH 6.040 H (0.465-4.680) mIU/L 09/26/24 09/26/24 09/26/24 Range/Units 00:52 10:58 10:58 WBC 13.5 H (3.8-10.6) k/uL Neutrophils # 11.4 H (1.3-7.7) k/uL APTT 50.7 H (22.0-30.0) sec Sodium 133 L (137-145) mmol/L BUN 25 H (7-17) mg/dL Glucose 117 H (74-99) mg/dL Troponin I (0.000-0.034) ng/mL Total Protein 6.0 L (6.3-8.2) g/dL TSH (0.465-4.680) mIU/L
--- NOTE | 2024-09-26 13:00 | CA ---
Transthoracic Echo Report Name: Mikki Garcia Age: 89 Gender: F : 1935 Exam Date: 09/26/2024 11:08 Exam Location: [facility] Ht (in): 62 Wt (lb): 160 Ordering Physician: Parul Izquierdo Attending/Referring Phys: [id number], Felecia Kier Boiler Brenda Forman, CORWIN Procedure CPT: Indications: lv function, elevated trops Cardiac Hx: Technical Quality: Good Contrast 1: Total Dose (mL): Contrast 2: Total Dose (mL): MEASUREMENTS (Male / Female) Normal Values 2D ECHO LV Diastolic Diameter PLAX 4.5 cm 4.2 - 5.9 / 3.9 - 5.3 cm LV Systolic Diameter PLAX 3.1 cm IVS Diastolic Thickness 1.3 cm 0.6 - 1.0 / 0.6 - 0.9 cm LVPW Diastolic Thickness 1.4 cm 0.6 - 1.0 / 0.6 - 0.9 cm LV Relative Wall Thickness 0.6 RV Internal Dim ED PLAX 3.0 cm LVOT Diameter 2.0 cm LA Systolic Diameter LX 4.2 cm 3.0 - 4.0 / 2.7 - 3.8 cm LV Diastolic Volume MOD 4C 101.5 cm??? LV Systolic Volume MOD 4C 51.6 cm??? LV Ejection Fraction MOD 4C 49.2 % LV Cardiac Index MOD 4C 1796.8 cm???/min???m??? LV Diastolic Length 4C 8.4 cm LV Systolic Length 4C 7.2 cm LV Diastolic Volume MOD 2C 53.5 cm??? LV Systolic Volume MOD 2C 21.5 cm??? LV Ejection Fraction MOD 2C 59.8 % LV Cardiac Index MOD 2C 1150.8 cm???/min???m??? LV Diastolic Length 2C 8.5 cm LV Systolic Length 2C 7.2 cm M-MODE Aortic Root Diameter MM 3.3 cm LA Systolic Diameter MM 2.3 cm LA Ao Ratio MM 0.7 DOPPLER AV Peak Velocity 245.9 cm/s AV Peak Gradient 24.2 mmHg AV Mean Velocity 162.7 cm/s AV Mean Gradient 12.3 mmHg AV Velocity Time Integral 52.6 cm LVOT Peak Velocity 138.0 cm/s LVOT Peak Gradient 7.6 mmHg LVOT Velocity Time Integral 34.2 cm LVOT Stroke Volume 105.8 cm??? LVOT Stroke Volume Index 60.8 ml/m??? LVOT Cardiac Index 3806.7 cm???/min???m??? AV Area Cont Eq vti 2.0 cm??? AV Area Cont Eq pk 1.7 cm??? Mitral E Point Velocity 88.9 cm/s Mitral A Point Velocity 115.7 cm/s Mitral E to A Ratio 0.8 MV Deceleration Time 280.1 ms FINDINGS Left Ventricle Left ventricular ejection fraction is estimated at 55-60 %. Mildly increased left ventricular wall thickness. Normal left ventricular systolic function with no obvious regional wall motion abnormalities. Left ventricular cavity size normal. Right Ventricle Normal right ventricular size and function. Unable to estimate the right ventricular systolic pressure. Right Atrium Normal right atrial size. No right atrial thrombus or mass seen. Left Atrium Mildly increased left atrial diameter. No left atrial thrombus or mass present. Mitral Valve Structurally normal mitral valve. Mitral annular calcification.mild mitral regurgitation. Aortic Valve Trileaflet aortic valve. Mild aortic stenosis with a peak gradient of 24 mmHg and a mean gradient of 12 mmHg. Aortic valve sclerosis. Tricuspid Valve Structurally normal tricuspid valve. No tricuspid stenosis, regurgitation or prolapse. Pulmonic Valve Structurally normal pulmonic valve. Trace pulmonic regurgitation. Pericardium No pericardial or pleural effusion. Aorta Normal size aortic root and proximal ascending aorta. CONCLUSIONS 1. Normal left ventricular size and systolic function 2. Mild aortic stenosis 3. Mild mitral regurgitation Previewed by: Dr. Jean Carlos Mckay MD (Electronically Signed) Final Date: 26 September 2024 12:59
--- NOTE | 2024-09-26 13:49 | P.PN ---
Subjective Progress Note Date: 09/26/24 The patient is a 89-year-old female who was seen in neurologic follow-up on September 26, 2024, in collaboration with Reshma Jones, via teleneurology. The patient reports that she is unable to move her left leg at all. She says she is able to wiggle the toes on her right foot. She denies upper extremity weakness there is no difficulty breathing. The patient reports not having had a bowel movement for the past 4 days. The chart has been reviewed. Cardiology is in agreement with discontinuation of heparin at this time. Lumbar puncture will be ordered to be done tomorrow, by interventional radi ology. Objective - Vital Signs Vital signs: Vital Signs Temp 97.9 F 09/26/24 08:00 Pulse 69 09/26/24 08:00 Resp 18 09/26/24 08:00 BP 140/66 09/26/24 08:00 Pulse Ox 98 09/26/24 08:00 FiO2 Intake & Output 09/25/24 09/26/24 09/26/24 18:59 06:59 18:59 Intake Total 181.544 70.28 Output Total 400 Balance 181.544 -329.72 Weight 72.575 kg Intake: Intake, IV Titration 61.544 70.28 Amount Heparin Sod,Pork in 0.45% 61.544 70.28 NaCl 25,000 unit In 0.45 % NaCl 1 250ml.bag @ 12 UNITS/KG/HR 8.709 mls/hr IV .Q24H [facility] Rx#: [id number] Oral 120 Output: Urine 400 - Exam General: The patient is reclining in the bed. She is well-nourished, well- developed and in no acute distress. HEENT: Head is atraumatic, normocephalic. Fundus not visualized. There is no scleral icterus. Mucous membranes are moist. Extremities: Without edema Neurological examination Mental status: The patient is awake, alert and oriented x 3. Her speech is clear. There is no dysarthria or aphasia. Cranial nerves: Pupils are equal at 3 mm and reactive. Visual lepe are full to confrontation. Extraocular movements are intact. Facial sensation is intact. There is no facial asymmetry. Hearing is grossly intact. Uvula and palate are midline. Shoulder shrug is symmetric. Tongue protrudes midline. Motor: Upper extremity strength: Oral Surgery Technician bilaterally 5/5, triceps, biceps and deltoids 5/5. Lower extremity strength: Hip flexors 0/5, hip abductors and adductors 0/5. There is minimal internal and external rotation of the hips. Right ankle plantar flexor 4/5. Right dorsiflexor 4/5. Left plantar flexor 0/5. Left dorsiflexor 0/5. Sensation: Intact to light touch throughout. There is no extinction with double simultaneous stimulation Coordination: Rgeedi-du-tmck testing is intact bilaterally. Seop-xj-duni testing is unable to be assessed Deep tendon reflexes: Upper extremity reflexes 2+/4+. Lower extremity reflexes absent. Gait: Unable to be assessed - Labs CBC & Chem 7: 09/26/24 10:58 09/26/24 10:58 Labs: Abnormal Lab Results - Last 24 Hours (Table) 09/25/24 09/25/24 09/25/24 Range/Units 11:26 15:45 15:45 APTT (22.0-30.0) sec Troponin I 0.408 H* 0.373 H* (0.000-0.034) ng/mL TSH 6.040 H (0.465-4.680) mIU/L 09/25/24 09/26/24 Range/Units 17:37 00:52 APTT 37.0 H 50.7 H (22.0-30.0) sec Troponin I (0.000-0.034) ng/mL TSH (0.465-4.680) mIU/L Assessment and Plan Assessment: 1. 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 Elevated troponins, with concern for myocardial infarction Plan: 1. Impressions and plan have been discussed with the emergency medicine doctor. I am concerned about the need for urgent lumbar puncture, as the sooner diagnosis of Guillain-Salamanca syndrome is ruled in or out the better. The sooner IV IgG is started for this patient but better her prognosis is 2. Cardiology has agreed to place IV heparin on hold. Lumbar puncture can be done tomorrow morning. This was ordered to be done per interventional radiology. CSF orders have been placed. If positive for Guillain-Salamanca syndrome, would begin IV IgG per protocol 3. Physical therapy evaluation and treat, associated with IV IgG treatment Dr. Alberto Emmanuel will assume neurologic coverage of this patient as of 09/27/2024 Time with Patient: Greater than 30 (35 minutes were spent caring for this patient today including, obtaining interim history, examining the patient, reviewing chart documentation, labs, placing orders and creating this note)
[2024-09-26] MEDS: LACTULOSE 20 GM/30 ML CUP PO ONE (14:37)
[2024-09-26] MEDS: bisacodyL 10 MG SUPP RECTAL STA (14:37)
[2024-09-26] MEDS: PIPERACILLIN-TAZOBACTAM 3.375 GM in SODIUM CHLORIDE 0.9% 100 ML IVPB SCH (16:40)
[2024-09-26] MEDS: amLODIPine 5 MG TAB PO SCH (17:18)
--- NOTE | 2024-09-26 21:55 | P.CONS ---
History of Present Illness - Reason for Consult Consult date: 09/26/24 Fever, bilateral lower extremity weakness Requesting physician: James Perez - Chief Complaint Weakness x few days - History of Present Illness Patient is a 89-year-old female past medical history significant for coronary artery disease hypertension hyperlipidemia, presenting to the hospital 2 days ago for evaluation of getting weaker to the point that she was unable to stand the day of presentation to the hospital patient denies any history of any fall or injury patient denies high-grade fever or chills however she did have a low-grade fever 100.2 F last night, patient was nontachycardic hypotensive or hypoxic and no need for supplemental oxygen patient did have a normal white count admission however white count is up to 13.5 today with a left shift c reatinine is normal liver enzymes are normal troponin was elevated urine has been negative patient did tested positive for COVID-19 patient did have a chest x-ray no acute cardiopulmonary disease process she did have abdominal pelvis CT that was done without any oral contrast issues cholelithiasis but no other abnormality infectious disease was consulted today because of fever and weakness patient has been complaining of mostly constipation with no bowel movement for the last 4 to 5 days though passing gas has been complaining of abdominal distention and decreased appetite because of constipation but no vomiting Review of Systems Positive point and negatives has been mentioned in the HPI, complete review of systems was performed and all other systems are negative Past Medical History Past Medical History: Coronary Artery Disease (CAD), Eye Disorder, Hearing Disorder / Deafness, Hyperlipidemia, Hypertension Additional Past Medical History / Comment(s): rt cataract,rt eye glaucoma History of Any Multi-Drug Resistant Organisms: None Reported Past Surgical History: Heart Catheterization With Stent, Joint Replacement, Orthopedic Surgery Additional Past Surgical History / Comment(s): 1997 or 1998 R carotid endartectomy in [place]. 1997 or 1998 cardiac cath with stenting in [place]. 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 Her adult son lives with her. She is independent and performs all her own ADL's. She uses a cane to ambulate. She drives a car. Smoking Status: Never smoker Past Alcohol Use History: None Reported Past Drug Use History: None Reported - Past Family History Father Family Medical History: Myocardial Infarction (ND) Additional Family Medical History / Comment(s): Father at age 62 yrs of ND. Mother Family Medical History: Diabetes Mellitus Additional Family Medical History / Comment(s): Mother of an impacted bowel at age 82 or 83yrs. Medications and Allergies Home Medications Medication Instructions Recorded Confirmed Type Lovastatin [Mevacor] 10 mg PO HS 11/29/14 09/25/24 History atenoloL [Tenormin] 25 mg PO HS 11/29/14 09/25/24 History Levothyroxine Sodium [Synthroid] 50 mcg PO DAILY 09/25/24 09/25/24 History Vitamin D3/Vitamin K2 (Mk4) 1 tab PO DAILY@1200 09/25/24 09/25/24 History [Vitamin K2 Plus D3 Tablet] Allergies Allergy/AdvReac Type Severity Reaction Status Date / Time adhesive Allergy Rash/Hives Verified 09/25/24 11:05 Physical Exam Vitals: Vital Signs Temp Pulse Pulse Resp BP BP Pulse Ox 09/26/24 08:00 97.9 F 69 18 140/66 98 09/26/24 04:00 98.9 F 60 18 144/73 96 09/26/24 02:00 20 09/25/24 23:33 100.2 F H 70 20 144/68 94 L 09/25/24 20:00 98.9 F 70 20 165/70 96 09/25/24 15:30 97.7 F 54 L 16 159/70 94 L 09/25/24 14:46 98.7 F 53 L 16 134/55 93 L 09/25/24 12:56 52 L 18 137/55 98 Intake and Output 09/25/24 09/26/24 09/26/24 22:59 06:59 14:59 Intake Total 181.544 70.28 Output Total 400 Balance 181.544 -329.72 Intake: Intake, IV Titration 61.544 70.28 Amount Heparin Sod,Pork in 0.45% 61.544 70.28 NaCl 25,000 unit In 0.45 % NaCl 1 250ml.bag @ 12 UNITS/KG/HR 8.709 mls/hr IV .Q24H [facility] Rx#: [id number] Oral 120 Output: Urine 400 Other: Weight 72.575 kg GENERAL DESCRIPTION: Elderly female lying in bed, no distress. No tachypnea or accessory muscle of respiration use. HEENT: Shows Pallor , no scleral icterus. Oral mucous membrane is dry. No pharyngeal erythema or thrush NECK: Trachea central, no thyromegaly. LUNGS: Unlabored breathing. Clear to auscultation anteriorly. No wheeze or crackle. HEART: S1, S2, regular rate and rhythm. No loud murmur ABDOMEN: Soft, distention but no significant tenderness EXTREMITIES: No edema of feet. SKIN: No rash, no masses palpable. NEUROLOGICAL: The patient is awake, alert, oriented x3, mood and affect normal. Results CBC & Chem 7: 09/26/24 10:58 09/26/24 10:58 Labs: Abnormal Lab Results - Last 24 Hours (Table) 09/25/24 09/25/24 09/25/24 Range/Units 11:26 15:45 15:45 WBC (3.8-10.6) k/uL Neutrophils # (1.3-7.7) k/uL APTT (22.0-30.0) sec Sodium (137-145) mmol/L BUN (7-17) mg/dL Glucose (74-99) mg/dL Troponin I 0.408 H* 0.373 H* (0.000-0.034) ng/mL Total Protein (6.3-8.2) g/dL TSH 6.040 H (0.465-4.680) mIU/L 09/25/24 09/26/24 09/26/24 Range/Units 17:37 00:52 10:58 WBC 13.5 H (3.8-10.6) k/uL Neutrophils # 11.4 H (1.3-7.7) k/uL APTT 37.0 H 50.7 H (22.0-30.0) sec Sodium (137-145) mmol/L BUN (7-17) mg/dL Glucose (74-99) mg/dL Troponin I (0.000-0.034) ng/mL Total Protein (6.3-8.2) g/dL TSH (0.465-4.680) mIU/L 09/26/24 Range/Units 10:58 WBC (3.8-10.6) k/uL Neutrophils # (1.3-7.7) k/uL APTT (22.0-30.0) sec Sodium 133 L (137-145) mmol/L BUN 25 H (7-17) mg/dL Glucose 117 H (74-99) mg/dL Troponin I (0.000-0.034) ng/mL Total Protein 6.0 L (6.3-8.2) g/dL TSH (0.465-4.680) mIU/L Assessment and Plan (1) Fever Current Visit: Yes Status: Acute Code(s): R50.9 - FEVER, UNSPECIFIED SNOMED Code(s): 257943148 (2) Leukocytosis Current Visit: Yes Status: Acute Code(s): D72.829 - ELEVATED WHITE BLOOD CELL COUNT, UNSPECIFIED SNOMED Code(s): 607104625 (3) COVID-19 Current Visit: Yes Status: Acute Code(s): U07.1 - COVID-19 SNOMED Code(s): 184034268 Plan: 1patient with elevated white count in this patient presenting to the hospital with weakness also complaining of significant constipation with no bowel movement over the last 5 days attributing it to the pain medication she has received for her lower extremity pain she did have some distention but no significant tenderness unfortunately the patient did have CT of abdominal pelvis completed today that was done without oral contrast limiting the sensitivity patient also have low-grade fever possible sources is abdominal. 2patient also tested positive for COVID-19 however chest x-ray was negative for acute infiltrate patient not hypoxic may be contributing some of her weakness but with no evidence of pneumonia or hypoxemia did evaluate mostly supportive 3-we will check inflammatory markers 4-empirically add Zosyn while waiting for the workup to be completed We will follow on clinical condition and cultures to further adjust medication if needed Thank you for this consultation we will follow the patient along with you Dictation was produced using [employer] dictation software. please excuse any grammatical, word or spelling errors. Time with Patient: Greater than 30
[2024-09-27 08:05] LABS: Carbon Dioxide 26 mmol/L (22-30); Chloride 100 mmol/L (98-107); Glucose 176 mg/dL (74-99); Potassium 4.5 mmol/L (3.5-5.1); Sodium 132 mmol/L (137-145)
[2024-09-27 08:06] LABS: ALT 11 U/L (4-34); AST 15 U/L (14-36); African American GFR (CKD) 73 (>60 ml/min/1.73 sqM); Albumin 3.2 g/dL (3.5-5.0); Alkaline Phosphatase 64 U/L (38-126); Anion Gap 6 mmol/L; Blood Urea Nitrogen 22 mg/dL (7-17); Calcium 9.1 mg/dL (8.4-10.2); Non-African American GFR(CKD) 63 (>60 ml/min/1.73 sqM); Total Bilirubin 1.9 mg/dL (0.2-1.3); Total Protein 5.7 g/dL (6.3-8.2)
[2024-09-27 08:23] LABS: Basophils % (A) 0 %; Eosinophils % (A) 0 %; HCT 41.4 % (34.0-46.0); HGB 13.6 gm/dL (11.4-16.0); Lymphocytes % (A) 4 %; MCH 28.4 pg (25.0-35.0); MCHC 32.9 g/dL (31.0-37.0); MCV 86.2 fL (80.0-100.0); Mean Platelet Volume 8.3; Monocytes # (A) 0.9 k/uL (0-1.0); Monocytes % (A) 4 %; Neutrophils # (A) 19.9 k/uL (1.3-7.7); Neutrophils % (A) 90 %; Platelet Count 336 k/uL (150-450); RDW 14.6 % (11.5-15.5)
--- NOTE | 2024-09-27 11:37 | P.PN ---
Subjective Progress Note Date: 09/27/24 Principal diagnosis: Reason for follow-up is fever and leukocytosis Patient is a 89-year-old female past medical history significant for coronary artery disease hypertension hyperlipidemia, presenting to the hospital for evaluation of getting weaker, patient also have a low-grade fever and elevated white count probably this consultation. On today's evaluation that is 09/27/2024,the patient did have resolution of her fever and is afebrile this morning, patient is on room air not requiring supplemental oxygen and denies any shortness of breath no chest pain or cou gh.Patient denies having any nausea or vomiting, no abdominal pain and mention did have a bowel movement this morning. Patient white count is up to 22,000, creatinine 0.83 Objective - Vital Signs Vital signs: Vital Signs Temp 98.2 F 09/27/24 08:24 Pulse 86 09/27/24 08:24 Resp 18 09/27/24 08:24 BP 132/68 09/27/24 08:24 Pulse Ox 91 L 09/27/24 08:24 FiO2 Intake & Output 09/26/24 09/27/24 09/27/24 18:59 06:59 18:59 Intake Total 472.311 240 Output Total 400 Balance 72.311 240 Intake: Intake, IV Titration 114.311 Amount Heparin Sod,Pork in 0.45% 114.311 NaCl 25,000 unit In 0.45 % NaCl 1 250ml.bag @ 12 UNITS/KG/HR 8.709 mls/hr IV .Q24H [facility] Rx#: [id number] Oral 358 240 Output: Urine 400 Other: Voiding Method External Catheter External Catheter # Voids 1 1 # Bowel Movements 1 1 - Exam GENERAL DESCRIPTION: An elderly male lying in bed in no distress RESPIRATORY SYSTEM: Unlabored breathing , decreased breath sounds at bases HEART: S1 S2 regular rate and rhythm , ABDOMEN: Soft did have some distention but no significant tenderness EXTREMITIES: No edema feet - Labs CBC & Chem 7: 09/27/24 07:02 09/27/24 07:02 Labs: Abnormal Lab Results - Last 24 Hours (Table) 09/26/24 09/26/24 09/26/24 Range/Units 10:58 10:58 17:30 WBC 13.5 H (3.8-10.6) k/uL Neutrophils # 11.4 H (1.3-7.7) k/uL Sodium 133 L (137-145) mmol/L BUN 25 H (7-17) mg/dL Glucose 117 H (74-99) mg/dL Total Bilirubin (0.2-1.3) mg/dL Total Protein 6.0 L (6.3-8.2) g/dL Albumin (3.5-5.0) g/dL SARS-CoV-2 (PCR) Detected A (Not Detectd) 09/27/24 09/27/24 Range/Units 07:02 07:02 WBC 22.0 H (3.8-10.6) k/uL Neutrophils # 19.9 H (1.3-7.7) k/uL Sodium 132 L (137-145) mmol/L BUN 22 H (7-17) mg/dL Glucose 176 H (74-99) mg/dL Total Bilirubin 1.9 H (0.2-1.3) mg/dL Total Protein 5.7 L (6.3-8.2) g/dL Albumin 3.2 L (3.5-5.0) g/dL SARS-CoV-2 (PCR) (Not Detectd) Assessment and Plan (1) Fever Current Visit: Yes Status: Acute Code(s): R50.9 - FEVER, UNSPECIFIED SNOMED Code(s): 054571220 (2) Leukocytosis Current Visit: Yes Status: Acute Code(s): D72.829 - ELEVATED WHITE BLOOD CELL COUNT, UNSPECIFIED SNOMED Code(s): 096695987 (3) COVID-19 Current Visit: Yes Status: Acute Code(s): U07.1 - COVID-19 SNOMED Code(s): 894910054 Plan: 1patient with elevated white count in this patient presenting to the hospital with weakness also complaining of significant constipation with no bowel movement over the last 5 days attributing it to the pain medication she has received for her lower extremity pain she did have some distention but no significant tenderness unfortunately the patient did have CT of abdominal pelvis completed today that was done without oral contrast limiting the sensitivity patient also have low-grade fever possible sources is abdominal. 2patient also tested positive for COVID-19 however chest x-ray was negative for acute infiltrate patient not hypoxic may be contributing some of her weakness but with no evidence of pneumonia or hypoxemia, treat will be mostly supportive 3-patient noticed to have worsening of the white count we will repeat a CT of abdominal pelvis with oral contrast to better evaluate the bowel and continue with the Zosyn Dictation was produced using [employer] dictation software. please excuse any grammatical, word or spelling errors. Time with Patient: Less than 30
[2024-09-27 13:21] LABS: Partial Thromboplastin Time 30.2 sec (22.0-30.0); Prothrombin Time 10.9 sec (10.0-12.5)
--- NOTE | 2024-09-27 13:34 | P.PN ---
Subjective Progress Note Date: 09/27/24 HISTORY OF PRESENT ILLNESS: This is a 89-year-old female with a past medical history significant for hy pertension, hyperlipidemia, and hypothyroidism. 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 We have been asked to see the patient in consultation for elevated troponins. Patient examined at the bedside in the emergency room. Patient presented to the hospital with a chief complaint of generalized weakness in both of her legs. She reports having some mild discomfort in her legs as well. The patient denied having any chest pain or pressure. She denied having any shortness of breath. She reports having some occasional swelling in her legs. There is documentation that patient has a history of CAD with previous stenting however patient denies any history of CAD or stenting. She states that she has never had any cardiac problems in the past. Patient's vital signs are stable. Bedside telemetry reveals sinus mechanism with a heart rate in the 50s. DIAGNOSTICS: - EKG reveals sinus bradycardia with a heart rate of 45. - Laboratory data: WBC 9.9. Hemoglobin 14.3. Platelet count 426. Sodium 137. Potassium 4.7. BUN 23. Creatinine 0.78. Lactic acid 2.2. Repeat 1.4. Troponin 0.524. 0.408. - Current home cardiac medications include lovastatin 10 mg at night and atenolol 25 mg at night - Most recent echocardiogram obtained in 2014 revealed ejection fraction 55 to 60% with mild MR and mild TR - Patient underwent dobutamine stress testing in 2014 which was negative for ischemia 09/26/2024 Patient examined this morning at the bedside. Patient denies chest pain or pressure. She denies shortness of breath. Vital signs are stable. She remains on IV heparin. She continues to have lower extremity weakness. 09/27/2024 Patient seen and examined. Blood pressure 132/68, heart rate 86, pulse ox 91% on room air. Repeat blood work reveals WBC 22, hemoglobin 13.6. Sodium 132, potassium 4.5, BUN 22 creatinine 0.83. COVID-19 positive. Patient remains on IV heparin. Patient is tentatively scheduled for diagnostic LP. Patient continues to complain of pain and weakness in her lower extremities bilaterally. Echocardiogram reveals EF 55 to 60%, mild aortic stenosis, mild mitral regurgitation. PHYSICAL EXAM: VITAL SIGNS: Reviewed. GENERAL: Well-developed in no acute distress. HEENT: Head is normocephalic. Pupils are equal, round. Sclerae anicteric. Mucous membranes of the mouth are moist. Neck supple. No JVD or thyromegaly LUNGS: Respirations even and unlabored. Lungs essentially clear to auscultation bilaterally. HEART: Regular rate and rhythm. S1 and S2 heard. ABDOMEN: Soft. Nondistended. Nontender. EXTREMITIES: Normal range of motion. No clubbing or cyanosis. Peripheral pulses intact, decreased. No lower extremity edema NEUROLOGIC: Awake and alert. Oriented x 3. ASSESSMENT: Weakness of bilateral lower extremities Elevated troponins, non-STEMI, patient without complaints of chest pain or EKG changes Asymptomatic bradycardia Hypertension Hyperlipidemia Hypothyroidism COVID-19 PLAN: Patient presenting to the emergency room with weakness of bilateral lower extremities. Incidentally, the patient was found to have elevated troponins. However patient is without any cardiac complaints. Discontinue heparin drip Continue aspirin Atorvastatin discontinued by primary medicine Atenolol discontinued secondary to sinus bradycardia on admission Orthostatic vital signs No further cardiac workup at this time Cardiology will sign off and follow on an as needed basis. Nurse practitioner note has been reviewed by physician. Signing provider agrees with the documented findings, assessment, and plan of care documented by GROUNDING ENGINEER as a scribe. Objective - Vital Signs Vital signs: Vital Signs Temp 98.2 F 09/27/24 08:24 Pulse 86 09/27/24 08:24 Resp 18 09/27/24 08:24 BP 132/68 09/27/24 08:24 Pulse Ox 91 L 09/27/24 08:24 FiO2 Intake & Output 09/26/24 09/27/24 09/27/24 18:59 06:59 18:59 Intake Total 472.311 Output Total 400 Balance 72.311 Intake: Intake, IV Titration 114.311 Amount Heparin Sod,Pork in 0.45% 114.311 NaCl 25,000 unit In 0.45 % NaCl 1 250ml.bag @ 12 UNITS/KG/HR 8.709 mls/hr IV .Q24H [facility] Rx#: [id number] Oral 358 Output: Urine 400 Other: Voiding Method External Catheter # Voids 1 1 # Bowel Movements 1 1 - Labs CBC & Chem 7: 09/27/24 07:02 09/27/24 07:02 Labs: Abnormal Lab Results - Last 24 Hours (Table) 09/26/24 09/26/2424 Range/Units 10:58 10:58 17:30 WBC 13.5 H (3.8-10.6) k/uL Neutrophils # 11.4 H (1.3-7.7) k/uL Sodium 133 L (137-145) mmol/L BUN 25 H (7-17) mg/dL Glucose 117 H (74-99) mg/dL Total Bilirubin (0.2-1.3) mg/dL Total Protein 6.0 L (6.3-8.2) g/dL Albumin (3.5-5.0) g/dL SARS-CoV-2 (PCR) Detected A (Not Detectd) 09/27/24 09/27/24 Range/Units 07:02 07:02 WBC 22.0 H (3.8-10.6) k/uL Neutrophils # 19.9 H (1.3-7.7) k/uL Sodium 132 L (137-145) mmol/L BUN 22 H (7-17) mg/dL Glucose 176 H (74-99) mg/dL Total Bilirubin 1.9 H (0.2-1.3) mg/dL Total Protein 5.7 L (6.3-8.2) g/dL Albumin 3.2 L (3.5-5.0) g/dL SARS-CoV-2 (PCR) (Not Detectd)
[2024-09-27] MEDS: IOPAMIDOL CONTRAST (ORAL USE) VIAL PO PRN (15:09)
--- NOTE | 2024-09-27 15:22 | P.PN ---
Subjective Progress Note Date: 09/27/24 I am seeing the patient for the first time. Please refer to Dr. Smalls's notes for further details. It seems that the patient had a recent COVID-19 infection and since then the patient's been having increased bilateral lower extremity weakness. States that her weakness began this past Friday and she is just very unsteady walking. She denies of any numbness to me. Denies any weakness in the upper extremity or numbness. My colleague recommended MR puncture and initially she consulted interventional radiology who notified the nurse that they no longer perform the lumbar puncture and recommended anesthesiology consultation. Objective - Vital Signs Vital signs: Vital Signs Temp 98.2 F 09/27/24 08:24 Pulse 87 09/27/24 12:00 Resp 16 09/27/24 12:00 BP 153/67 09/27/24 12:00 Pulse Ox 97 09/27/24 12:00 FiO2 Intake & Output 09/26/24 09/27/24 09/27/24 18:59 06:59 18:59 Intake Total 472.311 240 Output Total 400 Balance 72.311 240 Intake: Intake, IV Titration 114.311 Amount Heparin Sod,Pork in 0.45% 114.311 NaCl 25,000 unit In 0.45 % NaCl 1 250ml.bag @ 12 UNITS/KG/HR 8.709 mls/hr IV .Q24H [facility] Rx#: [id number] Oral 358 240 Output: Urine 400 Other: Voiding Method External Catheter External Catheter # Voids 1 1 # Bowel Movements 1 1 - Exam General: Lying in bed having lunch and is not in acute distress. Neuro: Somewhat limited. Patient is awake alert oriented to self place and time. Is following simple commands. No a aphasia. The pupils are round equal reactive to light. Visual lepe are full to confrontation. Extraocular was intact and no nystagmus. No facial weakness. No dysarthria. Motor somewhat limited but the strength in the uppers appears normal. While in the lowers she is only able to wiggle her toes and move the ankles 2 out of 5 bilaterally. Sensation is normal to touch throughout Reflexes is in the lowers is 0 while the uppers is 2. Some of the work-up during this hospital visit consisted of: TSH: 6.040, free T4: 1.16 B12: 585 HbA1c on 05/06/[address] head is negative for any intracranial process. - Labs CBC & Chem 7: 09/27/24 07:02 09/27/24 07:02 Labs: Abnormal Lab Results - Last 24 Hours (Table) 09/26/24 09/27/24 09/27/24 Range/Units 17:30 07:02 07:02 WBC 22.0 H (3.8-10.6) k/uL Neutrophils # 19.9 H (1.3-7.7) k/uL APTT (22.0-30.0) sec Sodium 132 L (137-145) mmol/L BUN 22 H (7-17) mg/dL Glucose 176 H (74-99) mg/dL Total Bilirubin 1.9 H (0.2-1.3) mg/dL Total Protein 5.7 L (6.3-8.2) g/dL Albumin 3.2 L (3.5-5.0) g/dL SARS-CoV-2 (PCR) Detected A (Not Detectd) 09/27/24 Range/Units 12:55 WBC (3.8-10.6) k/uL Neutrophils # (1.3-7.7) k/uL APTT 30.2 H (22.0-30.0) sec Sodium (137-145) mmol/L BUN (7-17) mg/dL Glucose (74-99) mg/dL Total Bilirubin (0.2-1.3) mg/dL Total Protein (6.3-8.2) g/dL Albumin (3.5-5.0) g/dL SARS-CoV-2 (PCR) (Not Detectd) Assessment and Plan Assessment: 1. 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 Elevated troponins, with concern for myocardial infarction 3. Acute COVID-19 4. DM Plan: I consulted pain specialist for lumbar puncture. I agree with Dr. Smalls if Lumbar puncture is positive for [place] Salamanca syndrome then we will pursue with IVIG protocol. Ordered a CT of the thorax and lumbar. Ordered MRI of the lumbar as well with and without next I.D is consulted Cardiology is consulted Physical therapy and Occupational Therapy is consulted Will defer the rest of medical management to primary and other specialist. The plan is discussed with patient and her nurse. Time with Patient: Less than 30
--- NOTE | 2024-09-27 17:04 | P.PN ---
Subjective Progress Note Date: 09/27/24 Mikki Garcia, is an 89-year-old female who presented to [facility] with a chief complaint of severe bilateral lower extremity weakness, patient presented 1 day prior to this admission to the emergency room with similar complaint of bilateral lower extremity weakness, at that time CT scanni ng of the lumbar spine was done, and did not reveal any acute abnormalities she was discharged to home, however she return to emergency room due to worsening symptoms. She was evaluated in the emergency room vital examination on presentation revealed a temperature of 98.2 pulse 46 respiration 18 blood pressure 148/57 pulse ox 94% on room air Laboratory data reveals a white blood count of 9.9 hemoglobin 14.3 platelet count 426 BUN 23 creatinine 0.78 lactic acid 2.2 troponin level 0.5-5 Testing in the emergency room revealed CT scan of the brain revealed no acute intracranial process, minimal chronic appearing periventricular white matter ischemic changes. Patient was admitted to medical floor for further evaluation and treatment On 09/26/2024 patient is alert and oriented x 3. Patient had elevated temp last night 100.2. Patient is complaining of some abdominal pain reports she has not had a bowel movement in 4 days will order abdomen CT and also blood culture. Chest x-ray COVID-19 and influenza ordered infectious disease services will be consulted. Neurology following at this time recommending possible lumbar puncture for Orly Salamanca patient is currently on a heparin drip for elevated troponins awaiting cardiology input. Patient denies chest pain. Patient denies nausea vomiting or diarrhea. Patient denies any urinary burning or frequency. On 09/27/2024 patient was seen and examined on the medical floor she is alert and oriented x 3 in no apparent distress, yesterday she had elevated temperature no new episodes of fever, no chills no headache or dizziness no chest pain no shortness of breath no cough no nausea or vomiting no abdominal pain no diarrhea no blood in the stools no burning with urination no frequency or urgency, and no hematuria. She is still complaining of severe weakness in bilateral lower extremities Input from neurology and cardiology reviewed, at this time we are awaiting lumbar puncture. Input from infectious disease reviewed, will follow closely. Objective - Vital Signs Vital signs: Vital Signs Temp 98.2 F 09/27/24 08:24 Pulse 86 09/27/24 08:24 Resp 18 09/27/24 08:24 BP 132/68 09/27/24 08:24 Pulse Ox 91 L 09/27/24 08:24 FiO2 Intake & Output 09/26/24 09/27/24 09/27/24 18:59 06:59 18:59 Intake Total 472.311 Output Total 400 Balance 72.311 Intake: Intake, IV Titration 114.311 Amount Heparin Sod,Pork in 0.45% 114.311 NaCl 25,000 unit In 0.45 % NaCl 1 250ml.bag @ 12 UNITS/KG/HR 8.709 mls/hr IV .Q24H [facility] Rx#: [id number] Oral 358 Output: Urine 400 Other: Voiding Method External Catheter # Voids 1 1 # Bowel Movements 1 1 - Exam In general patient is alert and oriented x 3 in no distress HEENT head normocephalic and atraumatic Neck is supple no JVD no goiter no lymphadenopathy no carotid bruit Chest examination is clear to auscultation no crackles no wheezing Cardiac exam reveals regular heart sounds S1 and S2 no gallops no murmurs Abdomen is soft nontender no organomegaly with normal bowel sounds Extremity exam reveals no edema no cyanosis or clubbing Neurological examination reveals significant bilateral lower extremity weakness left worse than right. - Labs CBC & Chem 7: 09/27/24 07:02 09/27/24 07:02 Labs: Abnormal Lab Results - Last 24 Hours (Table) 09/26/24 09/26/24 09/26/24 Range/Units 10:58 10:58 17:30 WBC 13.5 H (3.8-10.6) k/uL Neutrophils # 11.4 H (1.3-7.7) k/uL Sodium 133 L (137-145) mmol/L BUN 25 H (7-17) mg/dL Glucose 117 H (74-99) mg/dL Total Bilirubin (0.2-1.3) mg/dL Total Protein 6.0 L (6.3-8.2) g/dL Albumin (3.5-5.0) g/dL SARS-CoV-2 (PCR) Detected A (Not Detectd) 09/27/24 09/27/24 Range/Units 07:02 07:02 WBC 22.0 H (3.8-10.6) k/uL Neutrophils # 19.9 H (1.3-7.7) k/uL Sodium 132 L (137-145) mmol/L BUN 22 H (7-17) mg/dL Glucose 176 H (74-99) mg/dL Total Bilirubin 1.9 H (0.2-1.3) mg/dL Total Protein 5.7 L (6.3-8.2) g/dL Albumin 3.2 L (3.5-5.0) g/dL SARS-CoV-2 (PCR) (Not Detectd) Assessment and Plan Plan: Severe bilateral lower extremity weakness Elevated troponin level on presentation Bradycardia on presentation Lactic acidosis Febrile. Recent history of osteomyelitis of the right foot Recent history of acute COVID-19 infection Underlying history of diabetes mellitus type 2, with poor control, last hemoglobin A1c was 11.2 Underlying history of hypothyroidism Underlying history of hypertension Underlying history of hyperlipidemia Underlying history of coronary artery disease At this time patient will be admitted to medical floor She was started on IV heparin in the emergency room due to elevated troponin level Cardiology consultation and neurology consultation were requested in the emergency room Home medication reviewed and reordered At this time will discontinue metformin due to lactic acidosis and discontinue statin due to severe lower extremity weakness, will discontinue beta-jaime due to bradycardia For DVT prophylaxis patient now is on IV heparin Will follow closely
[2024-09-28 06:17] LABS: Basophils % (A) 0 %; Eosinophils # (A) 0.4 k/uL (0-0.7); Eosinophils % (A) 3 %; HCT 37.3 % (34.0-46.0); Lymphocytes # (A) 1.5 k/uL (1.0-4.8); Lymphocytes % (A) 10 %; MCH 27.9 pg (25.0-35.0); MCHC 32.2 g/dL (31.0-37.0); MCV 86.7 fL (80.0-100.0); Mean Platelet Volume 8.1; Monocytes # (A) 0.6 k/uL (0-1.0); Monocytes % (A) 4 %; Neutrophils # (A) 11.3 k/uL (1.3-7.7); Neutrophils % (A) 80 %; Platelet Count 315 k/uL (150-450); RDW 14.7 % (11.5-15.5); WBC 14.1 k/uL (3.8-10.6)
[2024-09-28 06:32] LABS: ALT 10 U/L (4-34); AST 13 U/L (14-36); African American GFR (CKD) 85 (>60 ml/min/1.73 sqM); Albumin 2.8 g/dL (3.5-5.0); Alkaline Phosphatase 62 U/L (38-126); Anion Gap 2 mmol/L; Blood Urea Nitrogen 22 mg/dL (7-17); Calcium 8.4 mg/dL (8.4-10.2); Carbon Dioxide 29 mmol/L (22-30); Chloride 102 mmol/L (98-107); Glucose 141 mg/dL (74-99); Non-African American GFR(CKD) 73 (>60 ml/min/1.73 sqM); Potassium 4.2 mmol/L (3.5-5.1); Sodium 133 mmol/L (137-145); Total Bilirubin 1.1 mg/dL (0.2-1.3); Total Protein 5.2 g/dL (6.3-8.2)
--- NOTE | 2024-09-28 08:23 | CT ---
EXAMINATION TYPE: CT ChestAbdPelvis wo con DATE OF EXAM: 09/27/2024 4:57 PM COMPARISON: None. CLINICAL INDICATION: Female, 89 years old with history of Abdominal pain constipation leukocytosis, a bdominal pain, constipation TECHNIQUE: CT imaging performed with sagittal coronal reformats. Unenhanced CT of the chest ,abdomen and pelvis is performed. The lack of intravenous contrast limits evaluation of the solid and hollow viscera. CT DLP: combined DLP 898.7 mGycm, Automated exposure control for dose reduction was used. Oral contrast: Yes FINDINGS: CT Chest: LUNGS: The lungs are clear and free of infiltrate or atelectasis. No pulmonary nodule or mass is det ected. No pleural effusion or CT evidence of interstitial lung disease. MEDIASTINUM: Thoracic aorta is of normal caliber. The heart is not enlarged. No evidence for media stinal mass or adenopathy. There is gastroesophageal reflux seen the esophagus with fixed hiatal pat ia. HILAR STRUCTURES: No evidence for mass. No hilar adenopathy is appreciated. OTHER: No significant abnormality. CONTRAST CT ABDOMEN AND PELVIS: LIVER/GB: Small layering gallstones identified. No space occupying hepatic lesion. Biliary tree is of normal caliber. PANCREAS: No inflammation. No distinct mass. SPLEEN: No splenic enlargement. No lesion seen. ADRENALS: No nodule. No thickening. KIDNEYS/BLADDER: No hydronephrosis. No nephrolithiasis. No disctinct renal mass. BOWEL: Normal appendix. Normal bowel caliber. There is inflammatory change noted about the rectum wi th the induration noted of the presacral fat. 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 Correlate c linically. GENITAL ORGANS: No gross abnormality. LYMPH NODES: No greater than 1cm abdominal or pelvic lymph nodes areappreciated. AORTA: No significant abnormality. OSSEOUS STRUCTURES: No significant abnormality is seen. OTHER: Bilateral hip prostheses with streak limiting artifact. IMPRESSION: 1. There is inflammatory change noted about the rectum with the induration noted of the presacral fat . 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 Correlate clinically. 2 uncomplicated cholelithiasis. 3. Hiatal hernia with gastroesophageal reflux. [facility], , 09/28/2024 8:21 AM
--- NOTE | 2024-09-28 08:32 | CT ---
EXAMINATION TYPE: CT thor lumbar spine wo con DATE OF EXAM: 09/27/2024 4:57 PM COMPARISON: None. CLINICAL INDICATION: Female, 89 years old with history of Leg weakness, back pain, TECHNIQUE: Axial imaging performed. Bone and soft tissue window settings are submitted as well as cor onal and sagittal reconstructions. IV CONTRAST: , patient injected with mL of . (None if empty) CT DLP: combined DLP 898.7 mGycm, Automated exposure control for dose reduction was used. FINDINGS: Thoracic spine: There is thoracolumbar curvature convex to the right. Rotoscoliotic component is seen of the lumbar spine. Moderate degenerative disc space narrowing with ventral and dorsal spondylosis identified C7-T1, T1-T2 and T2-T3. There may be mild central stenosis at T1-2 and C7-T1. Severe degen erative change with vacuum disc noted at T11-T12 and T12-L1. Endplate sclerosis identified. Borderlin e to Mild central stenosis at T12-L1 difficult to exclude. The remaining levels demonstrate mild dege nerative disc space narrowing. Scattered ventral spondylosis. No thoracic fracture seen. Lumbar spine: Severe multilevel degenerative disc space narrowing. Ventral and dorsal spondylosis seen. Areas of va cuum disks noted. Facet joint arthropathy with central stenosis noted at L1-2, L2-3 and L3-4. Varying degrees of bilateral neural foraminal encroachment. No paraspinal masses are identified. Lumbar seg ments are free of fracture. IMPRESSION: 1. Low degenerative disc space narrowing and spondylosis thoracic spine and lumbar spine as discussed . 2. Degrees of the neural foraminal encroachment as outlined above. [facility], , 09/28/2024 8:30 AM
--- NOTE | 2024-09-28 09:28 | P.PN ---
Subjective Progress Note Date: 09/28/24 Mikki Garcia, is an 89-year-old female who presented to [facility] with a chief complaint of severe bilateral lower extremity weakness, patient presented 1 day prior to this admission to the emergency room with similar complaint of bilateral lower extremity weakness, at that time CT scanni ng of the lumbar spine was done, and did not reveal any acute abnormalities she was discharged to home, however she return to emergency room due to worsening symptoms. She was evaluated in the emergency room vital examination on presentation revealed a temperature of 98.2 pulse 46 respiration 18 blood pressure 148/57 pulse ox 94% on room air Laboratory data reveals a white blood count of 9.9 hemoglobin 14.3 platelet count 426 BUN 23 creatinine 0.78 lactic acid 2.2 troponin level 0.5-5 Testing in the emergency room revealed CT scan of the brain revealed no acute intracranial process, minimal chronic appearing periventricular white matter ischemic changes. Patient was admitted to medical floor for further evaluation and treatment On 09/26/2024 patient is alert and oriented x 3. Patient had elevated temp last night 100.2. Patient is complaining of some abdominal pain reports she has not had a bowel movement in 4 days will order abdomen CT and also blood culture. Chest x-ray COVID-19 and influenza ordered infectious disease services will be consulted. Neurology following at this time recommending possible lumbar puncture for Orly Salamanca patient is currently on a heparin drip for elevated troponins awaiting cardiology input. Patient denies chest pain. Patient denies nausea vomiting or diarrhea. Patient denies any urinary burning or frequency. On 09/27/2024 patient was seen and examined on the medical floor she is alert and oriented x 3 in no apparent distress, yesterday she had elevated temperature no new episodes of fever, no chills no headache or dizziness no chest pain no shortness of breath no cough no nausea or vomiting no abdominal pain no diarrhea no blood in the stools no burning with urination no frequency or urgency, and no hematuria. She is still complaining of severe weakness in bilateral lower extremities Input from neurology and cardiology reviewed, at this time we are awaiting lumbar puncture. Input from infectious disease reviewed, will follow closely. On 09/28/2024 patient is alert and oriented x 3. MRI of the spine has been ordered per neurology services. Patient remains on IV antibiotics Zosyn. Heparin drip has been DC'd per cardiology. Still tentative plans for lumbar puncture. Patient reports some increasing movement to lower extremities. Current vital signs temp 98.2, heart rate 70, respiratory rate 18, blood pressure 146/64 with a pulse ox of 96% on room air. Neurology and infectious disease are consulted and awaiting further input Objective - Vital Signs Vital signs: Vital Signs Temp 98.2 F 09/28/24 08:15 Pulse 70 09/28/24 08:15 Resp 18 09/28/24 08:15 BP 146/64 09/28/24 08:15 Pulse Ox 96 09/28/24 08:15 FiO2 Intake & Output 09/27/24 09/28/24 09/28/24 18:59 06:59 18:59 Intake Total 240 10 Output Total 850 Balance 240 -840 Intake: IV 10 Invasive Line 2 10 Oral 240 Output: Urine 850 Other: Voiding Method External Catheter External Catheter # Voids 2 # Bowel Movements 1 - Exam In general patient is alert and oriented x 3 in no distress HEENT head normocephalic and atraumatic Neck is supple no JVD no goiter no lymphadenopathy no carotid bruit Chest examination is clear to auscultation no crackles no wheezing Cardiac exam reveals regular heart sounds S1 and S2 no gallops no murmurs Abdomen is soft nontender no organomegaly with normal bowel sounds Extremity exam reveals no edema no cyanosis or clubbing Neurological examination reveals significant bilateral lower extremity weakness left worse than right. - Labs CBC & Chem 7: 09/28/24 05:45 09/28/24 05:45 Labs: Abnormal Lab Results - Last 24 Hours (Table) 09/27/24 09/28/24 09/28/24 Range/Units 12:55 05:45 05:45 WBC 14.1 H (3.8-10.6) k/uL Neutrophils # 11.3 H (1.3-7.7) k/uL APTT 30.2 H (22.0-30.0) sec Sodium 133 L (137-145) mmol/L BUN 22 H (7-17) mg/dL Glucose 141 H (74-99) mg/dL AST 13 L (14-36) U/L Total Protein 5.2 L (6.3-8.2) g/dL Albumin 2.8 L (3.5-5.0) g/dL Microbiology - Last 24 Hours (Table) 09/26/24 10:58 Blood Culture - Preliminary Blood Assessment and Plan Plan: Severe bilateral lower extremity weakness Elevated troponin level on presentation Bradycardia on presentation Lactic acidosis Febrile. Recent history of osteomyelitis of the right foot Recent history of acute COVID-19 infection Underlying history of diabetes mellitus type 2, with poor control, last hemoglobin A1c was 11.2 Underlying history of hypothyroidism Underlying history of hypertension Underlying history of hyperlipidemia Underlying history of coronary artery disease At this time patient will be admitted to medical floor She was started on IV heparin in the emergency room due to elevated troponin level Cardiology consultation and neurology consultation were requested in the emergency room Home medication reviewed and reordered At this time will discontinue metformin due to lactic acidosis and discontinue statin due to severe lower extremity weakness, will discontinue beta-jaime due to bradycardia For DVT prophylaxis patient now is on IV heparin Will follow closely
[2024-09-28 11:29] VITALS: BMI 29.2
--- NOTE | 2024-09-28 11:53 | MR ---
EXAMINATION TYPE: MR lumbar spine wo/w con DATE OF EXAM: 09/28/2024 10:33 AM COMPARISON: 09/27/2024.. CLINICAL INDICATION: Female, 89 years old with history of lower extremity weakness, BLE weakness. TECHNIQUE: Multi planar, multi sequence imaging was performed utilizing: T1-weighted, T2-weighted, a nd turbo inversion recovery imaging of the lumbar spine. IV Contrast: 7 mL Gadobutrol (None, if empty) FINDINGS: Alignment: The lumbar vertebral bodies have preserved heights with scoliotic alignment. Cord: The conus medullaris and the distal spinal cord appear unremarkable with regards to their signa l intensity and morphology. Bones/Discs: Moderate to severe degeneration changes throughout the spine with reactive bony edema at T12-L1. Osteophyte formation and facet joint arthropathy throughout the lumbar spine are present. Th ere is significant metallic and bony changes throughout the spine. T12-L1: No evidence of significant spinal canal stenosis. Facet joint arthropathy moderate to severe left and moderate right neural foraminal stenosis. L1-L2: Disc extrusion with superior migration disc material up to 11 mm. Mild spinal canal stenosis. Moderate to severe bilateral neural foraminal stenosis. L2-L3: Disc bulge and facet joint arthropathy result in mild spinal canal and mild to moderate left a nd moderate right neural foraminal stenosis. The cauda equina is abutting the facet joint on the rig ht. L3-L4: Disc bulge and facet joint arthropathy result in mild spinal canal and mild to moderate left a nd moderate right neural foraminal stenosis. L4-L5: Disc bulge and facet joint arthropathy result in mild spinal canal and moderate bilateral neur al foraminal stenosis. L5-S1: The disc has a rounded posterior morphology without significant spinal canal stenosis. Facet j oint arthropathy with mild to moderate right and moderate left neural foraminal stenosis. No significant spinal canal or neural foraminal stenosis in the remainder of the visualized levels. Other findings: Extrarenal pelves bilaterally. Left renal cortical cyst present. The gallbladder isn 't visualized. Atherosclerosis of the arterial vasculature. IMPRESSION: 1. L1-L2 disc extrusion with mild spinal canal stenosis and moderate to severe bilateral neural fora luz stenosis. 2. 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 [facility], , 09/28/2024 11:51 AM
--- NOTE | 2024-09-28 13:28 | P.PCN ---
Date of Procedure: 09/28/24 Procedure(s) Performed: Preoperative diagnosis: Guillain-Salamanca syndrome Post operative diagnoses: Same As preop diagnosis Procedure= lumbar puncture Anesthesia= lidocaine 1% 3 mL Condition: stable Complication: none. Description of the procedure procedure risk and benefits discussed with the patient, consent signed. Patient and the procedure area placed in sitting position, back prepped with chlorhexidine 3 times been local infiltration of the skin and subcutaneous tissue with lidocaine 1% 3 mL for skin and subcu interstitial frustrations at L4 5 levels then 22-gauge Quincke-type needle advanced slowly at L4- 5 interlaminar space there was positive cerebrospinal fluid which was clear, no heme, no paresthesia ,total of 9 ML of clear cerebrospinal fluid collected in 4 different tubes 2-2-1/2 mL in each, then the needle removed and a Band-Aid applied and patient tolerated the procedure well without any complications.
[2024-09-28 13:55] LABS: Glucose,CSF 92 mg/dL (40-70); Total Protein,CSF 75 mg/dL (12-60)
--- NOTE | 2024-09-28 13:55 | P.PN ---
Subjective Progress Note Date: 09/28/24 Principal diagnosis: Reason for follow-up is fever and leukocytosis Patient is a 89-year-old female past medical history significant for coronary artery disease hypertension hyperlipidemia, presenting to the hospital for evaluation of getting weaker, patient also have a low-grade fever and elevated white count probably this consultation. On today's evaluation that is 09/28/2024, the patient did have sedation however fever is afebrile, the patient is currently breathing comfortably and is on room air no chest pain shortness of breath occasional cough no abdominal pain and did have resolution of her constipation no diarrhea reported. Patient white blood cell 14.1 creatinine 0.[address] abdominal pelvis did shows evidence of proctitis Objective - Vital Signs Vital signs: Vital Signs Temp 98.2 F 09/28/24 08:15 Pulse 70 09/28/24 08:15 Resp 18 09/28/24 08:15 BP 146/64 09/28/24 08:15 Pulse Ox 96 09/28/24 08:15 FiO2 Intake & Output 09/27/24 09/28/24 09/28/24 18:59 06:59 18:59 Intake Total 240 10 240 Output Total 850 250 Balance 240 -840 -10 Weight 72.575 kg Intake: IV 10 Invasive Line 2 10 Oral 240 240 Output: Urine 850 250 Other: Voiding Method External Catheter External Catheter External Catheter # Voids 2 # Bowel Movements 1 - Exam GENERAL DESCRIPTION: An elderly male lying in bed in no distress RESPIRATORY SYSTEM: Unlabored breathing , decreased breath sounds at bases HEART: S1 S2 regular rate and rhythm , ABDOMEN: Soft did have some distention but no significant tenderness EXTREMITIES: No edema feet - Labs CBC & Chem 7: 09/28/24 05:45 09/28/24 05:45 Labs: Abnormal Lab Results - Last 24 Hours (Table) 09/27/24 09/28/24 09/28/24 Range/Units 12:55 05:45 05:45 WBC 14.1 H (3.8-10.6) k/uL Neutrophils # 11.3 H (1.3-7.7) k/uL APTT 30.2 H (22.0-30.0) sec Sodium 133 L (137-145) mmol/L BUN 22 H (7-17) mg/dL Glucose 141 H (74-99) mg/dL AST 13 L (14-36) U/L Total Protein 5.2 L (6.3-8.2) g/dL Albumin 2.8 L (3.5-5.0) g/dL Microbiology - Last 24 Hours (Table) 09/26/24 10:58 Blood Culture - Preliminary Blood Assessment and Plan (1) Fever Current Visit: Yes Status: Acute Code(s): R50.9 - FEVER, UNSPECIFIED SNOMED Code(s): 138934807 (2) Leukocytosis Current Visit: Yes Status: Acute Code(s): D72.829 - ELEVATED WHITE BLOOD CELL COUNT, UNSPECIFIED SNOMED Code(s): 883352001 (3) COVID-19 Current Visit: Yes Status: Acute Code(s): U07.1 - COVID-19 SNOMED Code(s): 841920682 Plan: 1patient with elevated white count in this patient presenting to the hospital with weakness also complaining of significant constipation with no bowel movement over the last 5 days attributing it to the pain medication she has received for her lower extremity pain she did have some distention but no significant tenderness unfortunately the patient did have CT of abdominal pelvis completed today that was done without oral contrast limiting the sensitivity patient also have low-grade fever possible sources is abdominal. 2patient also tested positive for COVID-19 however chest x-ray was negative for acute infiltrate patient not hypoxic may be contributing some of her weakness but with no evidence of pneumonia or hypoxemia, treat will be mostly supportive 3-patient repeat CT abdominal pelvis did shows evidence of proctitis, patient white count is trending down continue with the [employer] Ap[employer] Dictation was produced using [employer] dictation software. please excuse any grammatical, word or spelling errors. Time with Patient: Less than 30
[2024-09-28 14:35] LABS: Appearance,CSF Clear; CSF Tube Number 1
[2024-09-28 14:36] LABS: Red Blood Cell,CSF 1204 u/L (0-10)
[2024-09-28 14:39] LABS: Nucleated Cells, CSF 8 u/L (0-5)
[2024-09-28 14:43] LABS: Red Blood Cell, CSF Crenated 0 %; Red Blood Cell, CSF Fresh 100 %
--- NOTE | 2024-09-28 19:22 | P.PN ---
Subjective Progress Note Date: 09/28/24 I am following up with the patient and patient stated that she had a rough day today in which she had to endure the lumbar puncture and she did not want intervention for her back therefore orthopedic consultation was discontinued. Otherwise she feels she is having improvement strength in the lower extremity in the right more than the left and per the nurse she feels she is having improvement in both bilateral lower extremity. Denies any new neurological issues. Objective - Vital Signs Vital signs: Vital Signs Temp 98.2 F 09/28/24 08:15 Pulse 68 09/28/24 16:00 Resp 18 09/28/24 16:00 BP 139/60 09/28/24 16:00 Pulse Ox 98 09/28/24 16:00 FiO2 Intake & Output 09/28/24 09/28/24 09/29/24 06:59 18:59 06:59 Intake Total 10 358 Output Total 850 250 Balance -840 108 Weight 72.575 kg Intake: IV 10 Invasive Line 2 10 Oral 358 Output: Urine 850 250 Other: Voiding Method External Catheter External Catheter - Exam General: Lying in bed having lunch and is not in acute distress. Neuro: Somewhat limited. Patient is awake alert oriented to self place and time. Is following simple commands. No a aphasia. The pupils are round equal reactive to light. Visual lepe are full to confrontation. Extraocular was intact and no nystagmus. No facial weakness. No dysarthria. Motor somewhat limited but the strength in the uppers appears normal. While in the lowers: Right lower proximally is 2 (better today compared to yesterday) and right ankle is 3/5. Left lower ankle is 3/5. Sensation is normal to touch throughout Reflexes is in the lowers is 0 while the uppers is 2. Some of the work-up during this hospital visit consisted of: TSH: 6.040, free T4: 1.16 B12: 585 HbA1c on 05/06/[address] head is negative for any intracranial process. CT thoracic and lumbar is reported as low degenerative disc space narrowing and spondylosis thoracic spine and lumbar as discussed. Degree of neuroforaminal encroachment as outlined above. MRI of the lumbar is reported as L1-L2 disc extrusion with mild spinal canal stenosis and moderate to severe bilateral neuroforaminal stenosis. Moderate to severe degeneration changes to the spine disc degeneration with associated osteoarthritic changes. CSF: It is clear, colorless, red blood cell is 1204, crenated cells 0, fresh red blood cell is 100, glucose is 92,CSF protein is 75 and the normal is 12-60. - Labs CBC & Chem 7: 09/28/24 05:45 09/28/24 05:45 Labs: Abnormal Lab Results - Last 24 Hours (Table) 09/28/24 09/28/24 09/28/24 Range/Units 05:45 05:45 13:07 WBC 14.1 H (3.8-10.6) k/uL Neutrophils # 11.3 H (1.3-7.7) k/uL Sodium 133 L (137-145) mmol/L BUN 22 H (7-17) mg/dL Glucose 141 H (74-99) mg/dL AST 13 L (14-36) U/L Total Protein 5.2 L (6.3-8.2) g/dL Albumin 2.8 L (3.5-5.0) g/dL CSF RBC 1204 H (0-10) u/L CSF Tot Nucleated Cells 8 H* (0-5) u/L CSF Glucose 92 H (40-70) mg/dL CSF Total Protein 75 H (12-60) mg/dL Microbiology - Last 24 Hours (Table) 09/26/24 10:58 Blood Culture - Preliminary Blood Assessment and Plan Assessment: 1. 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 Has moderate to severe degenerative changes in the lumbar spine on imaging which can also cause weakness but I feel GBS seems more acute concern--today patient is showing improvement in strength in lowers. 2. Elevated troponins, with concern for myocardial infarction 3. Acute COVID-19 4. DM Plan: Patient has a traumatic lumbar puncture and the minimal elevated nucleated cells is not concerning because of the traumatic tap. CSF protein is not drastically elevated for GBS but clinically appears GBS. Patient is showing improvement without any treatment and patient states she wants to continue with any treatment such as IVIG for today and wants to assess how she does by tomorrow. Regarding her degenerative disc changes in the lumbar patient does not want any surgery therefore orthopedic surgery team consultation is cancelled. I.D is consulted Cardiology is consulted Physical therapy and Occupational Therapy is consulted Will defer the rest of medical management to primary and other specialist. The plan is discussed with patient and her nurse. Time with Patient: Less than 30
[2024-09-29 06:50] LABS: Basophils # (A) 0.1 k/uL (0-0.2); Basophils % (A) 1 %; Eosinophils # (A) 0.4 k/uL (0-0.7); Eosinophils % (A) 4 %; HCT 37.7 % (34.0-46.0); HGB 12.1 gm/dL (11.4-16.0); Lymphocytes # (A) 1.2 k/uL (1.0-4.8); Lymphocytes % (A) 11 %; MCH 27.6 pg (25.0-35.0); MCV 86.2 fL (80.0-100.0); Mean Platelet Volume 8.4; Monocytes # (A) 0.6 k/uL (0-1.0); Monocytes % (A) 5 %; Neutrophils # (A) 8.8 k/uL (1.3-7.7); Neutrophils % (A) 78 %; Platelet Count 353 k/uL (150-450); RBC 4.38 m/uL (3.80-5.40); RDW 14.9 % (11.5-15.5); WBC 11.3 k/uL (3.8-10.6)
[2024-09-29 07:09] LABS: ALT 11 U/L (4-34); AST 14 U/L (14-36); African American GFR (CKD) 79 (>60 ml/min/1.73 sqM); Alkaline Phosphatase 70 U/L (38-126); Anion Gap 4 mmol/L; Blood Urea Nitrogen 24 mg/dL (7-17); Calcium 8.7 mg/dL (8.4-10.2); Carbon Dioxide 28 mmol/L (22-30); Chloride 100 mmol/L (98-107); Glucose 152 mg/dL (74-99); Non-African American GFR(CKD) 69 (>60 ml/min/1.73 sqM); Potassium 4.8 mmol/L (3.5-5.1); Sodium 132 mmol/L (137-145); Total Protein 5.6 g/dL (6.3-8.2)
--- NOTE | 2024-09-29 11:59 | P.PN ---
Subjective Progress Note Date: 09/29/24 Mikki Garcia, is an 89-year-old female who presented to [facility] with a chief complaint of severe bilateral lower extremity weakness, patient presented 1 day prior to this admission to the emergency room with similar complaint of bilateral lower extremity weakness, at that time CT scanni ng of the lumbar spine was done, and did not reveal any acute abnormalities she was discharged to home, however she return to emergency room due to worsening symptoms. She was evaluated in the emergency room vital examination on presentation revealed a temperature of 98.2 pulse 46 respiration 18 blood pressure 148/57 pulse ox 94% on room air Laboratory data reveals a white blood count of 9.9 hemoglobin 14.3 platelet count 426 BUN 23 creatinine 0.78 lactic acid 2.2 troponin level 0.5-5 Testing in the emergency room revealed CT scan of the brain revealed no acute intracranial process, minimal chronic appearing periventricular white matter ischemic changes. Patient was admitted to medical floor for further evaluation and treatment On 09/26/2024 patient is alert and oriented x 3. Patient had elevated temp last night 100.2. Patient is complaining of some abdominal pain reports she has not had a bowel movement in 4 days will order abdomen CT and also blood culture. Chest x-ray COVID-19 and influenza ordered infectious disease services will be consulted. Neurology following at this time recommending possible lumbar puncture for Orly Salamanca patient is currently on a heparin drip for elevated troponins awaiting cardiology input. Patient denies chest pain. Patient denies nausea vomiting or diarrhea. Patient denies any urinary burning or frequency. On 09/27/2024 patient was seen and examined on the medical floor she is alert and oriented x 3 in no apparent distress, yesterday she had elevated temperature no new episodes of fever, no chills no headache or dizziness no chest pain no shortness of breath no cough no nausea or vomiting no abdominal pain no diarrhea no blood in the stools no burning with urination no frequency or urgency, and no hematuria. She is still complaining of severe weakness in bilateral lower extremities Input from neurology and cardiology reviewed, at this time we are awaiting lumbar puncture. Input from infectious disease reviewed, will follow closely. On 09/28/2024 patient is alert and oriented x 3. MRI of the spine has been ordered per neurology services. Patient remains on IV antibiotics Zosyn. Heparin drip has been DC'd per cardiology. Still tentative plans for lumbar puncture. Patient reports some increasing movement to lower extremities. Current vital signs temp 98.2, heart rate 70, respiratory rate 18, blood pressure 146/64 with a pulse ox of 96% on room air. Neurology and infectious disease are consulted and awaiting further input On 09/29/2024 patient is alert and oriented x 3. Patient underwent lumbar puncture yesterday workup for possible Gullian Salamanca. Awaiting further recommendations per neurology services. Patient remains on IV Zosyn patient has slight improvement to lower extremities. White blood cell 11.3. Current vital signs temp 98.2, heart rate 69, respiratory rate 16, blood pressure 151/67 with a pulse ox of 95% on room air. Patient denies chest pain or shortness of breath. Patient denies nausea vomiting or diarrhea. Patient denies any urinary burning or frequency Objective - Vital Signs Vital signs: Vital Signs Temp 98.2 F 09/29/24 08:29 Pulse 69 09/29/24 08:29 Resp 16 09/29/24 08:29 BP 151/67 09/29/24 08:29 Pulse Ox 95 09/29/24 08:29 FiO2 Intake & Output 09/28/24 09/29/24 09/29/24 18:59 06:59 18:59 Intake Total 358 480 Output Total 250 Balance 108 480 Weight 72.575 kg Intake: Oral 358 480 Output: Urine 250 Other: Voiding Method External Catheter External Catheter External Catheter - Exam In general patient is alert and oriented x 3 in no distress HEENT head normocephalic and atraumatic Neck is supple no JVD no goiter no lymphadenopathy no carotid bruit Chest examination is clear to auscultation no crackles no wheezing Cardiac exam reveals regular heart sounds S1 and S2 no gallops no murmurs Abdomen is soft nontender no organomegaly with normal bowel sounds Extremity exam reveals no edema no cyanosis or clubbing Neurological examination reveals significant bilateral lower extremity weakness left worse than right. - Labs CBC & Chem 7: 09/29/24 06:12 09/29/24 06:12 Labs: Abnormal Lab Results - Last 24 Hours (Table) 09/28/24 09/29/24 09/29/24 Range/Units 13:07 06:12 06:12 WBC 11.3 H (3.8-10.6) k/uL Neutrophils # 8.8 H (1.3-7.7) k/uL Sodium 132 L (137-145) mmol/L BUN 24 H (7-17) mg/dL Glucose 152 H (74-99) mg/dL Total Protein 5.6 L (6.3-8.2) g/dL Albumin 3.0 L (3.5-5.0) g/dL CSF RBC 1204 H (0-10) u/L CSF Tot Nucleated Cells 8 H* (0-5) u/L CSF Glucose 92 H (40-70) mg/dL CSF Total Protein 75 H (12-60) mg/dL Microbiology - Last 24 Hours (Table) 09/28/24 13:07 CSF Gram Stain - Preliminary Cerebral Spinal Fluid 09/26/24 10:58 Blood Culture - Preliminary Blood Assessment and Plan Plan: Severe bilateral lower extremity weakness Elevated troponin level on presentation Bradycardia on presentation Lactic acidosis Febrile. Recent history of osteomyelitis of the right foot Recent history of acute COVID-19 infection Underlying history of diabetes mellitus type 2, with poor control, last hemoglobin A1c was 11.2 Underlying history of hypothyroidism Underlying history of hypertension Underlying history of hyperlipidemia Underlying history of coronary artery disease At this time patient will be admitted to medical floor She was started on IV heparin in the emergency room due to elevated troponin level Cardiology consultation and neurology consultation were requested in the emergency room Home medication reviewed and reordered At this time will discontinue metformin due to lactic acidosis and discontinue statin due to severe lower extremity weakness, will discontinue beta-jaime due to bradycardia Status post lumbar puncture Will follow closely
--- NOTE | 2024-09-29 14:57 | P.PN ---
Subjective Progress Note Date: 09/29/24 Following up with the patient and she feels she is about the same and denies of any further improvement from yesterday today. She denies also of any worsening of her symptoms. Objective - Vital Signs Vital signs: Vital Signs Temp 98.2 F 09/29/24 08:29 Pulse 69 09/29/24 11:59 Resp 16 09/29/24 11:59 BP 159/68 09/29/24 11:59 Pulse Ox 98 09/29/24 11:59 FiO2 Intake & Output 09/28/24 09/29/24 09/29/24 18:59 06:59 18:59 Intake Total 358 720 Output Total 250 Balance 108 720 Weight 72.575 kg Intake: Oral 358 720 Output: Urine 250 Other: Voiding Method External Catheter External Catheter External Catheter - Exam General: Lying in bed and is not in acute distress. Neuro: Patient is awake alert oriented to self place and time. Is following simple commands. No a aphasia. The pupils are round equal reactive to light. Visual lepe are full to confrontation. Extraocular was intact and no nystagmus. No facial weakness. No dysarthria. Motor strength in the uppers appears normal. While in the lowers: Right lower proximally is 2-3, knee is 2 and ankle is 3 while left lower proximally is 1 and ankle is 3. Sensation is normal to touch throughout Reflexes is in the lowers is 0 while the uppers is 2. Some of the work-up during this hospital visit consisted of: TSH: 6.040, free T4: 1.16 B12: 585 HbA1c on 05/06/[address] head is negative for any intracranial process. CT thoracic and lumbar is reported as low degenerative disc space narrowing and spondylosis thoracic spine and lumbar as discussed. Degree of neuroforaminal encroachment as outlined above. MRI of the lumbar is reported as L1-L2 disc extrusion with mild spinal canal stenosis and moderate to severe bilateral neuroforaminal stenosis. Moderate to severe degeneration changes to the spine disc degeneration with associated osteoarthritic changes. CSF: It is clear, colorless, red blood cell is 1204, crenated cells 0, fresh red blood cell is 100, glucose is 92,CSF protein is 75 and the normal is 12-60. CSF culture is no organism seen. - Labs CBC & Chem 7: 09/29/24 06:12 11/20/24 06:12 Labs: Abnormal Lab Results - Last 24 Hours (Table) 09/28/24 09/29/24 09/29/24 Range/Units 13:07 06:12 06:12 WBC 11.3 H (3.8-10.6) k/uL Neutrophils # 8.8 H (1.3-7.7) k/uL Sodium 132 L (137-145) mmol/L BUN 24 H (7-17) mg/dL Glucose 152 H (74-99) mg/dL Total Protein 5.6 L (6.3-8.2) g/dL Albumin 3.0 L (3.5-5.0) g/dL CSF RBC 1204 H (0-10) u/L CSF Tot Nucleated Cells 8 H* (0-5) u/L CSF Glucose 92 H (40-70) mg/dL CSF Total Protein 75 H (12-60) mg/dL Microbiology - Last 24 Hours (Table) 09/28/24 13:07 CSF Gram Stain - Preliminary Cerebral Spinal Fluid 09/26/24 10:58 Blood Culture - Preliminary Blood Assessment and Plan Assessment: 1. 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 CSF is protein is mildly elevated and has nucleated cells of 8 which is not significant but could be due had traumatic tap as well has acute COVID- 19. Has moderate to severe degenerative changes in the lumbar spine on imaging which can also cause weakness but I feel GBS seems more acute concern--had minimal improvement. 2. Elevated troponins, with concern for myocardial infarction 3. Acute COVID-19 4. DM Plan: Patient has a traumatic lumbar puncture and the minimal elevated nucleated cells is not concerning because of the traumatic tap. CSF protein is not drastically elevated for GBS but clinically appears GBS. Patient is in agreement with pursuing IVIG for 5days for concern of GBS. Regarding her degenerative disc changes in the lumbar patient does not want any surgery therefore orthopedic surgery team consultation is cancelled. I.D is consulted Cardiology is consulted Physical therapy and Occupational Therapy is consulted Will defer the rest of medical management to primary and other specialist. The plan is discussed with patient and her nurse. Time with Patient: Less than 30
[2024-09-29] MEDS: IMMUNE GLOBULIN (GAMMAGARD) 20 GM in EMPTY BAG 1 BAG IV ONE (16:19)
--- NOTE | 2024-09-30 08:46 | P.PN ---
Subjective Progress Note Date: 09/29/24 Principal diagnosis: Reason for follow-up is fever and leukocytosis Patient is a 89-year-old female past medical history significant for coronary artery disease hypertension hyperlipidemia, presenting to the hospital for evaluation of getting weaker, patient also have a low-grade fever and elevated white count probably this consultation. On today's evaluation that is 09/29/2024, patient has been afebrile, patient is breathing comfortably and is currently on room air, patient denies having any significant cough no chest pain, patient denies nausea vomiting or diarrhea and no abdominal painno abdominal pain and did have bowel movements. Patient white was down to 11.3, creatinine 0.77 Objective - Vital Signs Vital signs: Vital Signs Temp 98.2 F 09/29/24 08:29 Pulse 69 09/29/24 11:59 Resp 16 09/29/24 11:59 BP 159/68 09/29/24 11:59 Pulse Ox 98 09/29/24 11:59 FiO2 Intake & Output 09/28/24 09/29/24 09/29/24 18:59 06:59 18:59 Intake Total 358 720 Output Total 250 Balance 108 720 Weight 72.575 kg Intake: Oral 358 720 Output: Urine 250 Other: Voiding Method External Catheter External Catheter External Catheter - Exam GENERAL DESCRIPTION: An elderly male lying in bed in no distress RESPIRATORY SYSTEM: Unlabored breathing , decreased breath sounds at bases HEART: S1 S2 regular rate and rhythm , ABDOMEN: Soft did have some distention but no significant tenderness EXTREMITIES: No edema feet - Labs CBC & Chem 7: 09/29/24 06:12 09/29/24 06:12 Labs: Abnormal Lab Results - Last 24 Hours (Table) 09/28/24 09/29/24 09/29/24 Range/Units 13:07 06:12 06:12 WBC 11.3 H (3.8-10.6) k/uL Neutrophils # 8.8 H (1.3-7.7) k/uL Sodium 132 L (137-145) mmol/L BUN 24 H (7-17) mg/dL Glucose 152 H (74-99) mg/dL Total Protein 5.6 L (6.3-8.2) g/dL Albumin 3.0 L (3.5-5.0) g/dL CSF RBC 1204 H (0-10) u/L CSF Tot Nucleated Cells 8 H* (0-5) u/L CSF Glucose 92 H (40-70) mg/dL CSF Total Protein 75 H (12-60) mg/dL Microbiology - Last 24 Hours (Table) 09/28/24 13:07 CSF Gram Stain - Preliminary Cerebral Spinal Fluid 09/26/24 10:58 Blood Culture - Preliminary Blood Assessment and Plan (1) Fever Current Visit: Yes Status: Acute Code(s): R50.9 - FEVER, UNSPECIFIED SNOMED Code(s): 759385317 (2) Leukocytosis Current Visit: Yes Status: Acute Code(s): D72.829 - ELEVATED WHITE BLOOD CELL COUNT, UNSPECIFIED SNOMED Code(s): 012843572 (3) COVID-19 Current Visit: Yes Status: Acute Code(s): U07.1 - COVID-19 SNOMED Code(s): 877526549 Plan: 1patient with elevated white count in this patient presenting to the hospital with weakness also complaining of significant constipation with no bowel movement over the last 5 days attributing it to the pain medication she has received for her lower extremity pain she did have some distention but no significant tenderness unfortunately the patient did have CT of abdominal pelvis completed today that was done without oral contrast limiting the sensitivity patient also have low-grade fever possible sources is abdominal. 2patient also tested positive for COVID-19 however chest x-ray was negative for acute infiltrate patient not hypoxic may be contributing some of her weakness but with no evidence of pneumonia or hypoxemia, treat will be mostly supportive 3-patient repeat CT abdominal pelvis did shows evidence of proctitis, patient white count is down to 11,000 culture has been negative so far we will continue with Zosyn and monitor clinical course closely Dictation was produced using [employer] dictation software. please excuse any gram matical, word or spelling errors. Time with Patient: Less than 30
--- NOTE | 2024-09-30 14:17 | P.PN ---
Subjective Progress Note Date: 09/30/24 Principal diagnosis: Reason for follow-up is fever and leukocytosis Patient is a 89-year-old female past medical history significant for coronary artery disease hypertension hyperlipidemia, presenting to the hospital for evaluation of getting weaker, patient also have a low-grade fever and elevated white count probably this consultation. On today's evaluation that is 09/30/2024, Patient is afebrile this morning patient denies having any chest pain shortness of breath or cough, the patient is currently on room air, patient denies any abdominal pain no diarrhea no nausea no vomiting. No new lab has been obtained today blood cultures currently pending Objective - Vital Signs Vital signs: Vital Signs Temp 97.6 F 09/30/24 08:33 Pulse 74 09/30/24 11:17 Resp 17 09/30/24 11:17 BP 169/71 09/30/24 11:17 Pulse Ox 100 09/30/24 11:17 FiO2 Intake & Output 09/29/24 09/30/24 09/30/24 18:59 06:59 18:59 Intake Total 942.5 10 240 Output Total 500 300 800 Balance 442.5 -290 -560 Intake: IV 10 10 Invasive Line 3 10 10 Intake, IV Titration 12.5 Amount Immune Globulin ( 12.5 Gammagard) 20 gm In Empty Bag 1 bag @ Per Protocol IV .Q0M ONE Rx#: [id number] Oral 920 240 Output: Urine 500 300 800 Other: Voiding Method External Catheter External Catheter External Catheter - Exam GENERAL DESCRIPTION: An elderly male lying in bed in no distress RESPIRATORY SYSTEM: Unlabored breathing , decreased breath sounds at bases HEART: S1 S2 regular rate and rhythm , ABDOMEN: Soft did have some distention but no significant tenderness EXTREMITIES: No edema feet - Labs CBC & Chem 7: 09/29/24 06:12 09/29/24 06:12 Labs: Microbiology - Last 24 Hours (Table) 09/26/24 10:58 Blood Culture - Preliminary Blood 09/28/24 13:07 CSF Gram Stain - Preliminary Cerebral Spinal Fluid CSF Culture - Preliminary Assessment and Plan (1) Fever Current Visit: Yes Status: Acute Code(s): R50.9 - FEVER, UNSPECIFIED SNOMED Code(s): 443417276 (2) Leukocytosis Current Visit: Yes Status: Acute Code(s): D72.829 - ELEVATED WHITE BLOOD CELL COUNT, UNSPECIFIED SNOMED Code(s): 466631944 (3) COVID-19 Current Visit: Yes Status: Acute Code(s): U07.1 - COVID-19 SNOMED Code(s): 198695520 Plan: 1patient with elevated white count in this patient presenting to the hospital with weakness also complaining of significant constipation with no bowel movement over the last 5 days attributing it to the pain medication she has received for her lower extremity pain she did have some distention but no significant tenderness unfortunately the patient did have CT of abdominal pelvis completed today that was done without oral contrast limiting the sensitivity patient also have low-grade fever possible sources is abdominal. 2patient also tested positive for COVID-19 however chest x-ray was negative for acute infiltrate patient not hypoxic may be contributing some of her weakness but with no evidence of pneumonia or hypoxemia, treat will be mostly supportive 3-patient repeat CT abdominal pelvis did shows evidence of proctitis, 4- patient white count is down to 11,000 as of yesterday no CBC was done today culture has been negative so far, we will continue with Zosyn and monitor clinical course closely Dictation was produced using [employer] dictation software. please excuse any grammatical, word or spelling errors. Time with Patient: Less than 30
--- NOTE | 2024-09-30 14:44 | P.PN ---
Subjective Progress Note Date: 09/30/24 I am following-up with patient and she stated she was working with therapy and felt better but otherwise feels about the same. She had her first dose of IVIG yesterday. Objective - Vital Signs Vital signs: Vital Signs Temp 97.6 F 09/30/24 08:33 Pulse 74 09/30/24 11:17 Resp 17 09/30/24 11:17 BP 169/71 09/30/24 11:17 Pulse Ox 100 09/30/24 11:17 FiO2 Intake & Output 09/29/24 09/30/24 09/30/24 18:59 06:59 18:59 Intake Total 942.5 10 240 Output Total 500 300 800 Balance 442.5 -290 -560 Intake: IV 10 10 Invasive Line 3 10 10 Intake, IV Titration 12.5 Amount Immune Globulin ( 12.5 Gammagard) 20 gm In Empty Bag 1 bag @ Per Protocol IV .Q0M ONE Rx#: [id number] Oral 920 240 Output: Urine 500 300 800 Other: Voiding Method External Catheter External Catheter External Catheter - Exam General: Lying in bed and is not in acute distress. Neuro: Patient is awake alert oriented to self place and time. Is following simple commands. No a aphasia. The pupils are round equal reactive to light. Visual lepe are full to confrontation. Extraocular was intact and no nystagmus. No facial weakness. No dysarthria. Motor strength in the uppers appears normal. While in the lowers: Right lower proximally is 2-3, knee is 2 and ankle is 3 while left lower proximally is 1 and ankle is 3. Sensation is normal to touch throughout Reflexes is in the lowers is 0 while the uppers is 2. Some of the work-up during this hospital visit consisted of: TSH: 6.040, free T4: 1.16 B12: 585 HbA1c on 05/06/[address] head is negative for any intracranial process. CT thoracic and lumbar is reported as low degenerative disc space narrowing and spondylosis thoracic spine and lumbar as discussed. Degree of neuroforaminal encroachment as outlined above. MRI of the lumbar is reported as L1-L2 disc extrusion with mild spinal canal stenosis and moderate to severe bilateral neuroforaminal stenosis. Moderate to severe degeneration changes to the spine disc degeneration with associated osteoarthritic changes. CSF: It is clear, colorless, red blood cell is 1204, crenated cells 0, fresh red blood cell is 100, glucose is 92,CSF protein is 75 and the normal is 12-60. CSF culture is no organism seen. - Labs CBC & Chem 7: 09/29/24 06:12 09/29/24 06:12 Labs: Microbiology - Last 24 Hours (Table) 09/26/24 10:58 Blood Culture - Preliminary Blood 09/28/24 13:07 CSF Gram Stain - Preliminary Cerebral Spinal Fluid CSF Culture - Preliminary Assessment and Plan Assessment: 1. 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 CSF is protein is mildly elevated and has nucleated cells of 8 which is not significant but could be due had traumatic tap as well has acute COVID- 19. Has moderate to severe degenerative changes in the lumbar spine on imaging which can also cause weakness but I feel GBS seems more acute concern--had minimal improvement. 2. Elevated troponins, with concern for myocardial infarction 3. Acute COVID-19 4. DM Plan: Patient has a traumatic lumbar puncture and the minimal elevated nucleated cells is not concerning because of the traumatic tap. CSF protein is not drastically elevated for GBS but clinically appears GBS. Today is day #2/5 of IVIG 2g/kg (started on 09/29/2024). Regarding her degenerative disc changes in the lumbar patient does not want any surgery therefore orthopedic surgery team consultation is cancelled. I.D is consulted Cardiology is consulted Physical therapy and Occupational Therapy is consulted Will defer the rest of medical management to primary and other specialist. The plan is discussed with patient. Time with Patient: Less than 30
--- NOTE | 2024-09-30 16:08 | P.PN ---
Subjective Progress Note Date: 09/30/24 Mikki Garcia, is an 89-year-old female who presented to [facility] with a chief complaint of severe bilateral lower extremity weakness, patient presented 1 day prior to this admission to the emergency room with similar complaint of bilateral lower extremity weakness, at that time CT scanni ng of the lumbar spine was done, and did not reveal any acute abnormalities she was discharged to home, however she return to emergency room due to worsening symptoms. She was evaluated in the emergency room vital examination on presentation revealed a temperature of 98.2 pulse 46 respiration 18 blood pressure 148/57 pulse ox 94% on room air Laboratory data reveals a white blood count of 9.9 hemoglobin 14.3 platelet count 426 BUN 23 creatinine 0.78 lactic acid 2.2 troponin level 0.5-5 Testing in the emergency room revealed CT scan of the brain revealed no acute intracranial process, minimal chronic appearing periventricular white matter ischemic changes. Patient was admitted to medical floor for further evaluation and treatment On 09/26/2024 patient is alert and oriented x 3. Patient had elevated temp last night 100.2. Patient is complaining of some abdominal pain reports she has not had a bowel movement in 4 days will order abdomen CT and also blood culture. Chest x-ray COVID-19 and influenza ordered infectious disease services will be consulted. Neurology following at this time recommending possible lumbar puncture for Orly Salamanca patient is currently on a heparin drip for elevated troponins awaiting cardiology input. Patient denies chest pain. Patient denies nausea vomiting or diarrhea. Patient denies any urinary burning or frequency. On 09/27/2024 patient was seen and examined on the medical floor she is alert and oriented x 3 in no apparent distress, yesterday she had elevated temperature no new episodes of fever, no chills no headache or dizziness no chest pain no shortness of breath no cough no nausea or vomiting no abdominal pain no diarrhea no blood in the stools no burning with urination no frequency or urgency, and no hematuria. She is still complaining of severe weakness in bilateral lower extremities Input from neurology and cardiology reviewed, at this time we are awaiting lumbar puncture. Input from infectious disease reviewed, will follow closely. On 09/28/2024 patient is alert and oriented x 3. MRI of the spine has been ordered per neurology services. Patient remains on IV antibiotics Zosyn. Heparin drip has been DC'd per cardiology. Still tentative plans for lumbar puncture. Patient reports some increasing movement to lower extremities. Current vital signs temp 98.2, heart rate 70, respiratory rate 18, blood pressure 146/64 with a pulse ox of 96% on room air. Neurology and infectious disease are consulted and awaiting further input On 09/29/2024 patient is alert and oriented x 3. Patient underwent lumbar puncture yesterday workup for possible Gullian Salamanca. Awaiting further recommendations per neurology services. Patient remains on IV Zosyn patient has slight improvement to lower extremities. White blood cell 11.3. Current vital signs temp 98.2, heart rate 69, respiratory rate 16, blood pressure 151/67 with a pulse ox of 95% on room air. Patient denies chest pain or shortness of breath. Patient denies nausea vomiting or diarrhea. Patient denies any urinary burning or frequency On 09/30/2024 patient was seen and examined on the medical floor, she is alert and oriented x 3 in no apparent distress she reports some improvement in her bilateral lower extremity weakness, otherwise she denies any complaints there is no fever or chills no headache or dizziness no chest pain no shortness of breath no cough no nausea or vomiting no abdominal pain no diarrhea no blood in the stools no burning with urination no frequency or urgency and no hematuria, patient is followed by neurology and infectious disease, she had a lumbar puncture, and 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 Objective - Vital Signs Vital signs: Vital Signs Temp 97.6 F 09/30/24 08:33 Pulse 70 09/30/24 08:33 Resp 16 09/30/24 08:33 BP 146/67 09/30/24 08:33 Pulse Ox 100 09/30/24 08:33 FiO2 Intake & Output 09/29/24 09/30/24 09/30/24 18:59 06:59 18:59 Intake Total 942.5 10 120 Output Total 500 300 800 Balance 442.5 -290 -680 Intake: IV 10 10 Invasive Line 3 10 10 Intake, IV Titration 12.5 Amount Immune Globulin ( 12.5 Gammagard) 20 gm In Empty Bag 1 bag @ Per Protocol IV .Q0M ONE Rx#: [id number] Oral 920 120 Output: Urine 500 300 800 Other: Voiding Method External Catheter External Catheter External Catheter - Exam In general patient is alert and oriented x 3 in no distress HEENT head normocephalic and atraumatic Neck is supple no JVD no goiter no lymphadenopathy no carotid bruit Chest examination is clear to auscultation no crackles no wheezing Cardiac exam reveals regular heart sounds S1 and S2 no gallops no murmurs Abdomen is soft nontender no organomegaly with normal bowel sounds Extremity exam reveals no edema no cyanosis or clubbing Neurological examination reveals significant bilateral lower extremity weakness left worse than right. - Labs CBC & Chem 7: 09/29/24 06:12 09/29/24 06:12 Labs: Microbiology - Last 24 Hours (Table) 09/26/24 10:58 Blood Culture - Preliminary Blood 09/28/24 13:07 CSF Gram Stain - Preliminary Cerebral Spinal Fluid CSF Culture - Preliminary Assessment and Plan Plan: Severe bilateral lower extremity weakness Elevated troponin level on presentation Bradycardia on presentation Lactic acidosis Febrile. Recent history of osteomyelitis of the right foot Recent history of acute COVID-19 infection Underlying history of diabetes mellitus type 2, with poor control, last hemoglobin A1c was 11.2 Underlying history of hypothyroidism Underlying history of hypertension Underlying history of hyperlipidemia Underlying history of coronary artery disease At this time patient will be admitted to medical floor She was started on IV heparin in the emergency room due to elevated troponin level Cardiology consultation and neurology consultation were requested in the emergency room Home medication reviewed and reordered At this time will discontinue metformin due to lactic acidosis and discontinue statin due to severe lower extremity weakness, will discontinue beta-jaime due to bradycardia Status post lumbar puncture Will follow closely
[2024-09-30] MEDS: IMMUNE GLOBULIN (GAMMAGARD) 20 GM in EMPTY BAG 1 BAG IV ONE (16:14)
--- NOTE | 2024-10-01 09:02 | P.PN ---
Subjective Progress Note Date: 10/01/24 Mikki Garcia, is an 89-year-old female who presented to [facility] with a chief complaint of severe bilateral lower extremity weakness, patient presented 1 day prior to this admission to the emergency room with similar complaint of bilateral lower extremity weakness, at that time CT scanni ng of the lumbar spine was done, and did not reveal any acute abnormalities she was discharged to home, however she return to emergency room due to worsening symptoms. She was evaluated in the emergency room vital examination on presentation revealed a temperature of 98.2 pulse 46 respiration 18 blood pressure 148/57 pulse ox 94% on room air Laboratory data reveals a white blood count of 9.9 hemoglobin 14.3 platelet count 426 BUN 23 creatinine 0.78 lactic acid 2.2 troponin level 0.5-5 Testing in the emergency room revealed CT scan of the brain revealed no acute intracranial process, minimal chronic appearing periventricular white matter ischemic changes. Patient was admitted to medical floor for further evaluation and treatment On 09/26/2024 patient is alert and oriented x 3. Patient had elevated temp last night 100.2. Patient is complaining of some abdominal pain reports she has not had a bowel movement in 4 days will order abdomen CT and also blood culture. Chest x-ray COVID-19 and influenza ordered infectious disease services will be consulted. Neurology following at this time recommending possible lumbar puncture for Orly Salamanca patient is currently on a heparin drip for elevated troponins awaiting cardiology input. Patient denies chest pain. Patient denies nausea vomiting or diarrhea. Patient denies any urinary burning or frequency. On 09/27/2024 patient was seen and examined on the medical floor she is alert and oriented x 3 in no apparent distress, yesterday she had elevated temperature no new episodes of fever, no chills no headache or dizziness no chest pain no shortness of breath no cough no nausea or vomiting no abdominal pain no diarrhea no blood in the stools no burning with urination no frequency or urgency, and no hematuria. She is still complaining of severe weakness in bilateral lower extremities Input from neurology and cardiology reviewed, at this time we are awaiting lumbar puncture. Input from infectious disease reviewed, will follow closely. On 09/28/2024 patient is alert and oriented x 3. MRI of the spine has been ordered per neurology services. Patient remains on IV antibiotics Zosyn. Heparin drip has been DC'd per cardiology. Still tentative plans for lumbar puncture. Patient reports some increasing movement to lower extremities. Current vital signs temp 98.2, heart rate 70, respiratory rate 18, blood pressure 146/64 with a pulse ox of 96% on room air. Neurology and infectious disease are consulted and awaiting further input On 09/29/2024 patient is alert and oriented x 3. Patient underwent lumbar puncture yesterday workup for possible Gullian Salamanca. Awaiting further recommendations per neurology services. Patient remains on IV Zosyn patient has slight improvement to lower extremities. White blood cell 11.3. Current vital signs temp 98.2, heart rate 69, respiratory rate 16, blood pressure 151/67 with a pulse ox of 95% on room air. Patient denies chest pain or shortness of breath. Patient denies nausea vomiting or diarrhea. Patient denies any urinary burning or frequency On 09/30/2024 patient was seen and examined on the medical floor, she is alert and oriented x 3 in no apparent distress she reports some improvement in her bilateral lower extremity weakness, otherwise she denies any complaints there is no fever or chills no headache or dizziness no chest pain no shortness of breath no cough no nausea or vomiting no abdominal pain no diarrhea no blood in the stools no burning with urination no frequency or urgency and no hematuria, patient is followed by neurology and infectious disease, she had a lumbar puncture, and 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 On 10/01/2024 patient is alert and oriented x 3 patient is currently on her third day of IVIG. Reports some improvement in bilateral lower extremity weakness. Patient also reporting constipation last bowel movement 3 days ago will add stool softeners. Patient denies chest pain or shortness of breath. Patient denies nausea vomiting or diarrhea. Patient denies any urinary burning or frequency. Patient remains on IV Zosyn. Current vital signs temp 97.8, h eart rate 71, respiratory rate 16, blood pressure 143/69 with a pulse ox of 97% on room air Objective - Vital Signs Vital signs: Vital Signs Temp 97.8 F 10/01/24 04:08 Pulse 71 10/01/24 04:08 Resp 16 10/01/24 04:08 BP 143/69 10/01/24 04:08 Pulse Ox 97 10/01/24 04:08 FiO2 Intake & Output 09/30/24 10/01/24 10/01/24 18:59 06:59 18:59 Intake Total 408.5 360 Output Total 1400 300 Balance -991.5 -300 360 Intake: Intake, IV Titration 48.5 Amount Immune Globulin ( 48.5 Gammagard) 20 gm In Empty Bag 1 bag @ Per Protocol IV .Q0M ONE Rx#: [id number] Oral 360 360 Output: Urine 1400 300 Other: Voiding Method External Catheter External Catheter - Exam In general patient is alert and oriented x 3 in no distress HEENT head normocephalic and atraumatic Neck is supple no JVD no goiter no lymphadenopathy no carotid bruit Chest examination is clear to auscultation no crackles no wheezing Cardiac exam reveals regular heart sounds S1 and S2 no gallops no murmurs Abdomen is soft nontender no organomegaly with normal bowel sounds Extremity exam reveals no edema no cyanosis or clubbing Neurological examination reveals significant bilateral lower extremity weakness left worse than right. - Labs CBC & Chem 7: 09/29/24 06:12 09/29/24 06:12 Labs: Microbiology - Last 24 Hours (Table) 09/28/24 13:07 CSF Gram Stain - Preliminary Cerebral Spinal Fluid CSF Culture - Preliminary Assessment and Plan Plan: Severe bilateral lower extremity weakness Elevated troponin level on presentation Bradycardia on presentation Lactic acidosis Febrile. Recent history of osteomyelitis of the right foot Recent history of acute COVID-19 infection Underlying history of diabetes mellitus type 2, with poor control, last hemoglobin A1c was 11.2 Underlying history of hypothyroidism Underlying history of hypertension Underlying history of hyperlipidemia Underlying history of coronary artery disease At this time patient will be admitted to medical floor She was started on IV heparin in the emergency room due to elevated troponin level Cardiology consultation and neurology consultation were requested in the emergency room Home medication reviewed and reordered At this time will discontinue metformin due to lactic acidosis and discontinue statin due to severe lower extremity weakness, will discontinue beta-jaime due to bradycardia Status post lumbar puncture Patient has been started on IVIG Will follow closely
[2024-10-01] MEDS: DOCUSATE 100 MG CAP PO SCH (10:20)
--- NOTE | 2024-10-01 12:36 | P.PN ---
Subjective Progress Note Date: 10/01/24 Principal diagnosis: Reason for follow-up is fever and leukocytosis Patient is a 89-year-old female past medical history significant for coronary artery disease hypertension hyperlipidemia, presenting to the hospital for evaluation of getting weaker, patient also have a low-grade fever and elevated white count probably this consultation. On today's evaluation that is 10/01/2024,the patient denies any fever or any chills, patient is breathing comfortably on room air, the patient denies chest pain shortness of breath and no significant cough, patient denies abdominal pain, no nausea vomiting mention no bowel movement over the last 3 days. No new lab has been obtained today Objective - Vital Signs Vital signs: Vital Signs Temp 98.8 F 10/01/24 12:17 Pulse 65 10/01/24 12:17 Resp 16 10/01/24 12:17 BP 175/76 10/01/24 12:17 Pulse Ox 95 10/01/24 12:17 FiO2 Intake & Output 09/30/24 10/01/24 10/01/24 18:59 06:59 18:59 Intake Total 408.5 360 Output Total 1400 300 800 Balance -991.5 -300 -440 Intake: Intake, IV Titration 48.5 Amount Immune Globulin ( 48.5 Gammagard) 20 gm In Empty Bag 1 bag @ Per Protocol IV .Q0M ONE Rx#: [id number] Oral 360 360 Output: Urine 1400 300 800 Other: Voiding Method External Catheter External Catheter External Catheter - Exam GENERAL DESCRIPTION: An elderly male lying in bed in no distress RESPIRATORY SYSTEM: Unlabored breathing , decreased breath sounds at bases HEART: S1 S2 regular rate and rhythm , ABDOMEN: Soft did have some distention but no significant tenderness EXTREMITIES: No edema feet - Labs CBC & Chem 7: 09/29/24 06:12 09/29/24 06:12 Labs: Microbiology - Last 24 Hours (Table) 09/28/24 13:07 CSF Gram Stain - Preliminary Cerebral Spinal Fluid CSF Culture - Preliminary Assessment and Plan (1) Fever Current Visit: Yes Status: Acute Code(s): R50.9 - FEVER, UNSPECIFIED SNOMED Code(s): 201080900 (2) Leukocytosis Current Visit: Yes Status: Acute Code(s): D72.829 - ELEVATED WHITE BLOOD CELL COUNT, UNSPECIFIED SNOMED Code(s): 468710290 (3) COVID-19 Current Visit: Yes Status: Acute Code(s): U07.1 - COVID-19 SNOMED Code(s): 008731124 Plan: 1patient with elevated white count in this patient presenting to the hospital with weakness also complaining of significant constipation with no bowel m ovement over the last 5 days attributing it to the pain medication she has received for her lower extremity pain she did have some distention but no significant tenderness unfortunately the patient did have CT of abdominal pelvis completed today that was done without oral contrast limiting the sensitivity patient also have low-grade fever possible sources is abdominal. 2patient also tested positive for COVID-19 however chest x-ray was negative for acute infiltrate patient not hypoxic may be contributing some of her weakness but with no evidence of pneumonia or hypoxemia, treat will be mostly supportive 3-patient repeat CT abdominal pelvis did shows evidence of proctitis, 4- patient white count is down to 11,000 as of 09/29/2024 she is covered with Zosyn still having problems with constipation will add laxative/stool softener Dictation was produced using [employer] dictation software. please excuse any grammatical, word or spelling errors. Time with Patient: Less than 30
[2024-10-01] MEDS: hydrALAZINE HCL 20 MG/ML 1 ML VIAL IVP PRN (13:28)
[2024-10-01] MEDS: ENOXAPARIN 40 MG/0.4 ML SYRINGE SQ SCH (13:29)
--- NOTE | 2024-10-01 13:30 | P.PN ---
Subjective Progress Note Date: 09/21/24 I am following up with the patient and she feels she is about the same and she feels she is doing somewhat better with therapy but otherwise she feels her strength is about the same. Objective - Vital Signs Vital signs: Vital Signs Temp 98.8 F 10/01/24 12:17 Pulse 65 10/01/24 12:17 Resp 16 10/01/24 12:17 BP 175/76 10/01/24 12:17 Pulse Ox 95 10/01/24 12:17 FiO2 Intake & Output 09/30/24 10/01/24 10/01/24 18:59 06:59 18:59 Intake Total 408.5 360 Output Total 1400 300 800 Balance -991.5 -300 -440 Intake: Intake, IV Titration 48.5 Amount Immune Globulin ( 48.5 Gammagard) 20 gm In Empty Bag 1 bag @ Per Protocol IV .Q0M ONE Rx#: [id number] Oral 360 360 Output: Urine 1400 300 800 Other: Voiding Method External Catheter External Catheter External Catheter - Exam General: Lying in bed and is not in acute distress. Neuro: Patient is awake alert oriented to self place and time. Is following simple commands. No a aphasia. The pupils are round equal reactive to light. Visual lepe are full to confrontation. Extraocular was intact and no nystagmus. No facial weakness. No dysarthria. Motor strength in the uppers appears normal. While in the lowers: Right lower proximally is 2-3, knee is 3 and ankle is 3 while left lower proximally is 1 and ankle is 3. Sensation is normal to touch throughout Reflexes is in the lowers is 0 while the uppers is 2. Some of the work-up during this hospital visit consisted of: TSH: 6.040, free T4: 1.16 B12: 585 HbA1c on 05/06/[address] head is negative for any intracranial process. CT thoracic and lumbar is reported as low degenerative disc space narrowing and spondylosis thoracic spine and lumbar as discussed. Degree of neuroforaminal encroachment as outlined above. MRI of the lumbar is reported as L1-L2 disc extrusion with mild spinal canal stenosis and moderate to severe bilateral neuroforaminal stenosis. Moderate to severe degeneration changes to the spine disc degeneration with associated osteoarthritic changes. CSF: It is clear, colorless, red blood cell is 1204, crenated cells 0, fresh red blood cell is 100, glucose is 92,CSF protein is 75 and the normal is 12-60. CSF culture is no organism seen. - Labs CBC & Chem 7: 09/29/24 06:12 09/29/24 06:12 Labs: Microbiology - Last 24 Hours (Table) 09/28/24 13:07 CSF Gram Stain - Preliminary Cerebral Spinal Fluid CSF Culture - Preliminary Assessment and Plan Assessment: 1. 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 CSF is protein is mildly elevated and has nucleated cells of 8 which is not significant but could be due had traumatic tap as well has acute COVID- 19. 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 2. Elevated troponins, with concern for myocardial infarction 3. Acute COVID-19 4. DM Plan: Patient has a traumatic lumbar puncture and the minimal elevated nucleated cells is not concerning because of the traumatic tap. CSF protein is not drastically elevated for GBS but clinically appears GBS. Today is day #3/5 of IVIG 2g/kg (started on 09/29/2024). Recommend EMG with nerve conduction study of the lowers as an outpatient Regarding her degenerative disc changes in the lumbar patient does not want any surgery therefore orthopedic surgery team consultation is cancelled. I.D is consulted Cardiology is consulted Physical therapy and Occupational Therapy is consulted. Patient will benefit from inpatient therapy. Will defer the rest of medical management to primary and other specialist. Discharge recommend the patient to follow-up with a neurologist as an outpatient within 2 weeks. The plan is discussed with patient and her children. Time with Patient: Less than 30
[2024-10-01] MEDS: IMMUNE GLOBULIN (GAMMAGARD) 20 GM in EMPTY BAG 1 BAG IV ONE (14:40)
[2024-10-01] MEDS: LACTULOSE 20 GM/30 ML CUP PO ONE (16:37)
[2024-10-02 09:39] LABS: Basophils % (A) 1 %; Eosinophils # (A) 0.4 k/uL (0-0.7); Eosinophils % (A) 6 %; HCT 38.7 % (34.0-46.0); HGB 12.4 gm/dL (11.4-16.0); Lymphocytes # (A) 0.7 k/uL (1.0-4.8); Lymphocytes % (A) 12 %; MCH 27.8 pg (25.0-35.0); MCHC 32.1 g/dL (31.0-37.0); MCV 86.5 fL (80.0-100.0); Mean Platelet Volume 8.3; Monocytes # (A) 0.4 k/uL (0-1.0); Monocytes % (A) 7 %; Neutrophils # (A) 4.7 k/uL (1.3-7.7); Neutrophils % (A) 74 %; Platelet Count 387 k/uL (150-450); RBC 4.47 m/uL (3.80-5.40); RDW 14.8 % (11.5-15.5); WBC 6.4 k/uL (3.8-10.6)
--- NOTE | 2024-10-02 09:50 | P.PN ---
Subjective Progress Note Date: 10/02/24 Mikki Garcia, is an 89-year-old female who presented to [facility] with a chief complaint of severe bilateral lower extremity weakness, patient presented 1 day prior to this admission to the emergency room with similar complaint of bilateral lower extremity weakness, at that time CT scanni ng of the lumbar spine was done, and did not reveal any acute abnormalities she was discharged to home, however she return to emergency room due to worsening symptoms. She was evaluated in the emergency room vital examination on presentation revealed a temperature of 98.2 pulse 46 respiration 18 blood pressure 148/57 pulse ox 94% on room air Laboratory data reveals a white blood count of 9.9 hemoglobin 14.3 platelet count 426 BUN 23 creatinine 0.78 lactic acid 2.2 troponin level 0.5-5 Testing in the emergency room revealed CT scan of the brain revealed no acute intracranial process, minimal chronic appearing periventricular white matter ischemic changes. Patient was admitted to medical floor for further evaluation and treatment On 09/26/2024 patient is alert and oriented x 3. Patient had elevated temp last night 100.2. Patient is complaining of some abdominal pain reports she has not had a bowel movement in 4 days will order abdomen CT and also blood culture. Chest x-ray COVID-19 and influenza ordered infectious disease services will be consulted. Neurology following at this time recommending possible lumbar puncture for Orly Salamanca patient is currently on a heparin drip for elevated troponins awaiting cardiology input. Patient denies chest pain. Patient denies nausea vomiting or diarrhea. Patient denies any urinary burning or frequency. On 09/27/2024 patient was seen and examined on the medical floor she is alert and oriented x 3 in no apparent distress, yesterday she had elevated temperature no new episodes of fever, no chills no headache or dizziness no chest pain no shortness of breath no cough no nausea or vomiting no abdominal pain no diarrhea no blood in the stools no burning with urination no frequency or urgency, and no hematuria. She is still complaining of severe weakness in bilateral lower extremities Input from neurology and cardiology reviewed, at this time we are awaiting lumbar puncture. Input from infectious disease reviewed, will follow closely. On 09/28/2024 patient is alert and oriented x 3. MRI of the spine has been ordered per neurology services. Patient remains on IV antibiotics Zosyn. Heparin drip has been DC'd per cardiology. Still tentative plans for lumbar puncture. Patient reports some increasing movement to lower extremities. Current vital signs temp 98.2, heart rate 70, respiratory rate 18, blood pressure 146/64 with a pulse ox of 96% on room air. Neurology and infectious disease are consulted and awaiting further input On 09/29/2024 patient is alert and oriented x 3. Patient underwent lumbar puncture yesterday workup for possible Gullian Salamanca. Awaiting further recommendations per neurology services. Patient remains on IV Zosyn patient has slight improvement to lower extremities. White blood cell 11.3. Current vital signs temp 98.2, heart rate 69, respiratory rate 16, blood pressure 151/67 with a pulse ox of 95% on room air. Patient denies chest pain or shortness of breath. Patient denies nausea vomiting or diarrhea. Patient denies any urinary burning or frequency On 09/30/2024 patient was seen and examined on the medical floor, she is alert and oriented x 3 in no apparent distress she reports some improvement in her bilateral lower extremity weakness, otherwise she denies any complaints there is no fever or chills no headache or dizziness no chest pain no shortness of breath no cough no nausea or vomiting no abdominal pain no diarrhea no blood in the stools no burning with urination no frequency or urgency and no hematuria, patient is followed by neurology and infectious disease, she had a lumbar puncture, and 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 On 10/01/2024 patient is alert and oriented x 3 patient is currently on her third day of IVIG. Reports some improvement in bilateral lower extremity weakness. Patient also reporting constipation last bowel movement 3 days ago will add stool softeners. Patient denies chest pain or shortness of breath. Patient denies nausea vomiting or diarrhea. Patient denies any urinary burning or frequency. Patient remains on IV Zosyn. Current vital signs temp 97.8, h eart rate 71, respiratory rate 16, blood pressure 143/69 with a pulse ox of 97% on room air On 10/02/2024 patient is alert and oriented x 3. Patient currently fourth day of IVIG. Patient reports some improvement with lower extremity weakness. Patient remains on IV Zosyn. Current vital signs temp 96.6, heart rate 69, respiratory rate 18, blood pressure 149/65 with a pulse ox of 95% on room air Objective - Vital Signs Vital signs: Vital Signs Temp 96.6 F L 10/02/24 03:37 Pulse 69 10/02/24 03:37 Resp 18 10/02/24 03:37 BP 149/65 10/02/24 03:37 Pulse Ox 95 10/02/24 09:01 FiO2 Intake & Output 10/01/24 10/02/24 10/02/24 18:59 06:59 18:59 Intake Total 907.0 Output Total 800 1900 Balance 107.0 -1900 Intake: Intake, IV Titration 99.0 Amount Immune Globulin ( 99.0 Gammagard) 20 gm In Empty Bag 1 bag @ Per Protocol IV .Q0M ONE Rx#: [id number] Oral 808 Output: Urine 800 1900 Other: Voiding Method External Catheter External Catheter - Exam In general patient is alert and oriented x 3 in no distress HEENT head normocephalic and atraumatic Neck is supple no JVD no goiter no lymphadenopathy no carotid bruit Chest examination is clear to auscultation no crackles no wheezing Cardiac exam reveals regular heart sounds S1 and S2 no gallops no murmurs Abdomen is soft nontender no organomegaly with normal bowel sounds Extremity exam reveals no edema no cyanosis or clubbing Neurological examination reveals significant bilateral lower extremity weakness left worse than right. - Labs CBC & Chem 7: 10/02/24 08:32 09/29/24 06:12 Labs: Abnormal Lab Results - Last 24 Hours (Table) 10/02/24 Range/Units 08:32 Lymphocytes # 0.7 L (1.0-4.8) k/uL Microbiology - Last 24 Hours (Table) 09/26/24 10:58 Blood Culture - Final Blood 09/28/24 13:07 CSF Gram Stain - Preliminary Cerebral Spinal Fluid CSF Culture - Preliminary Assessment and Plan Plan: Severe bilateral lower extremity weakness Elevated troponin level on presentation Bradycardia on presentation Lactic acidosis Febrile. Recent history of osteomyelitis of the right foot Recent history of acute COVID-19 infection Underlying history of diabetes mellitus type 2, with poor control, last hemoglobin A1c was 11.2 Underlying history of hypothyroidism Underlying history of hypertension Underlying history of hyperlipidemia Underlying history of coronary artery disease At this time patient will be admitted to medical floor She was started on IV heparin in the emergency room due to elevated troponin level Cardiology consultation and neurology consultation were requested in the emergency room Home medication reviewed and reordered At this time will discontinue metformin due to lactic acidosis and discontinue statin due to severe lower extremity weakness, will discontinue beta-jaime due to bradycardia Status post lumbar puncture Patient has been started on IVIG Will follow closely
[2024-10-02 09:52] LABS: ALT 13 U/L (4-34); AST 17 U/L (14-36); African American GFR (CKD) 87 (>60 ml/min/1.73 sqM); Albumin 3.2 g/dL (3.5-5.0); Alkaline Phosphatase 62 U/L (38-126); Anion Gap 6 mmol/L; Blood Urea Nitrogen 18 mg/dL (7-17); Calcium 8.9 mg/dL (8.4-10.2); Carbon Dioxide 29 mmol/L (22-30); Chloride 101 mmol/L (98-107); Glucose 209 mg/dL (74-99); Non-African American GFR(CKD) 75 (>60 ml/min/1.73 sqM); Potassium 3.9 mmol/L (3.5-5.1); Sodium 136 mmol/L (137-145); Total Bilirubin 0.7 mg/dL (0.2-1.3); Total Protein 6.6 g/dL (6.3-8.2)
--- NOTE | 2024-10-02 12:56 | P.PN ---
Subjective Progress Note Date: 10/02/24 Principal diagnosis: Reason for follow-up is fever and leukocytosis Patient is a 89-year-old female past medical history significant for coronary artery disease hypertension hyperlipidemia, presenting to the hospital for evaluation of getting weaker, patient also have a low-grade fever and elevated white count probably this consultation. On today's evaluation that is 10/02/2024,the patient remains to be afebrile, patient is on room air not requiring supplemental oxygen and denies any shortness of breath no chest pain or cough.Patient denies having any nausea or vomiting, no abdominal pain however mention no bowel movement over the last 3 days she is able to move her leg more freely. The patient white count 6.4, creatinine 0.72 blood and CSF culture have been negative so far Objective - Vital Signs Vital signs: Vital Signs Temp 99.1 F 10/02/24 12:00 Pulse 78 10/02/24 12:00 Resp 18 10/02/24 12:00 BP 145/66 10/02/24 12:00 Pulse Ox 95 10/02/24 12:00 FiO2 Intake & Output 10/01/24 10/02/24 10/02/24 18:59 06:59 18:59 Intake Total 907.0 120 Output Total 800 1900 Balance 107.0 -1900 120 Intake: Intake, IV Titration 99.0 Amount Immune Globulin ( 99.0 Gammagard) 20 gm In Empty Bag 1 bag @ Per Protocol IV .Q0M ONE Rx#: [id number] Oral 808 120 Output: Urine 800 1900 Other: Voiding Method External Catheter External Catheter External Catheter - Exam GENERAL DESCRIPTION: An elderly male lying in bed in no distress RESPIRATORY SYSTEM: Unlabored breathing , decreased breath sounds at bases HEART: S1 S2 regular rate and rhythm , ABDOMEN: Soft did have some distention but no significant tenderness EXTREMITIES: No edema feet - Labs CBC & Chem 7: 10/02/24 08:32 10/02/24 08:32 Labs: Abnormal Lab Results - Last 24 Hours (Table) 10/02/24 10/02/24 Range/Units 08:32 08:32 Lymphocytes # 0.7 L (1.0-4.8) k/uL Sodium 136 L (137-145) mmol/L BUN 18 H (7-17) mg/dL Glucose 209 H (74-99) mg/dL Albumin 3.2 L (3.5-5.0) g/dL Microbiology - Last 24 Hours (Table) 09/26/24 10:58 Blood Culture - Final Blood 09/28/24 13:07 CSF Gram Stain - Preliminary Cerebral Spinal Fluid CSF Culture - Preliminary Assessment and Plan (1) Fever Current Visit: Yes Status: Acute Code(s): R50.9 - FEVER, UNSPECIFIED SNOMED Code(s): 205197124 (2) Leukocytosis Current Visit: Yes Status: Acute Code(s): D72.829 - ELEVATED WHITE BLOOD CELL COUNT, UNSPECIFIED SNOMED Code(s): 297720887 (3) COVID-19 Current Visit: Yes Status: Acute Code(s): U07.1 - COVID-19 SNOMED Code(s): 174967892 Plan: 1patient with elevated white count in this patient presenting to the hospital with weakness also complaining of significant constipation with no bowel movement over the last 5 days attributing it to the pain medication she has received for her lower extremity pain she did have some distention but no significant tenderness unfortunately the patient did have CT of abdominal pelvis completed today that was done without oral contrast limiting the sensitivity patient also have low-grade fever possible sources is abdominal. 2patient also tested positive for COVID-19 however chest x-ray was negative for acute infiltrate patient not hypoxic may be contributing some of her weakness but with no evidence of pneumonia or hypoxemia, treat will be mostly supportive 3-patient repeat CT abdominal pelvis did shows evidence of proctitis, 4- patient white count normalized the patient is afebrile, plan is to continue with Zosyn and will transition to oral antibiotics on discharge Dictation was produced using [employer] dictation software. please excuse any grammatical, word or spelling errors. Time with Patient: Less than 30
[2024-10-02] MEDS ORDERED: MAGNESIUM HYDROXIDE 2,400 MG/30 ML CUP PO PRN (12:57)
[2024-10-02] MEDS: IMMUNE GLOBULIN (GAMMAGARD) 20 GM in EMPTY BAG 1 BAG IV ONE (15:50)
[2024-10-03] MEDS: MAGNESIUM HYDROXIDE 2,400 MG/30 ML CUP PO ONE (05:21)
[2024-10-03 08:37] LABS: Basophils # (A) 0.1 k/uL (0-0.2); Basophils % (A) 1 %; Eosinophils # (A) 0.4 k/uL (0-0.7); Eosinophils % (A) 6 %; HCT 37.6 % (34.0-46.0); HGB 12.2 gm/dL (11.4-16.0); Lymphocytes % (A) 14 %; MCH 28.2 pg (25.0-35.0); MCHC 32.6 g/dL (31.0-37.0); MCV 86.7 fL (80.0-100.0); Mean Platelet Volume 7.6; Monocytes # (A) 0.7 k/uL (0-1.0); Monocytes % (A) 10 %; Neutrophils # (A) 4.8 k/uL (1.3-7.7); Neutrophils % (A) 68 %; Platelet Count 375 k/uL (150-450); RBC 4.33 m/uL (3.80-5.40); RDW 14.7 % (11.5-15.5); WBC 7.2 k/uL (3.8-10.6)
[2024-10-03 08:50] LABS: ALT 11 U/L (4-34); AST 16 U/L (14-36); African American GFR (CKD) 82 (>60 ml/min/1.73 sqM); Albumin 3.1 g/dL (3.5-5.0); Alkaline Phosphatase 60 U/L (38-126); Anion Gap 4 mmol/L; Blood Urea Nitrogen 21 mg/dL (7-17); Calcium 8.8 mg/dL (8.4-10.2); Carbon Dioxide 27 mmol/L (22-30); Chloride 103 mmol/L (98-107); Glucose 173 mg/dL (74-99); Non-African American GFR(CKD) 71 (>60 ml/min/1.73 sqM); Potassium 4.6 mmol/L (3.5-5.1); Sodium 134 mmol/L (137-145); Total Bilirubin 0.7 mg/dL (0.2-1.3); Total Protein 6.5 g/dL (6.3-8.2)
--- NOTE | 2024-10-03 11:12 | P.PN ---
Subjective Progress Note Date: 10/03/24 Patient states that she is improving yesterday and seeing progression improvement during this hospital admission. Today is day 03/14 IVIG. Patient states that yesterday she was able to move her legs both of arm [id number] on bed. Objective - Vital Signs Vital signs: Vital Signs Temp 99 F 10/03/24 08:10 Pulse 73 10/03/24 08:10 Resp 18 10/03/24 08:10 BP 143/66 10/03/24 08:10 Pulse Ox 96 10/03/24 08:10 FiO2 Intake & Output 10/02/24 10/03/24 10/03/24 18:59 06:59 18:59 Intake Total 497.5 10 Output Total 700 1300 Balance -202.5 -1290 Intake: IV 10 Invasive Line 2 10 Intake, IV Titration 17.5 Amount Immune Globulin ( 17.5 Gammagard) 20 gm In Empty Bag 1 bag @ Per Protocol IV .Q0M ONE Rx#: [id number] Oral 480 Output: Urine 700 1300 Other: Voiding Method External Catheter External Catheter External Catheter - Exam General: Lying in bed and is not in acute distress. Neuro: Patient is awake alert oriented to self place and time. Is following simple commands. No a aphasia. The pupils are round equal reactive to light. Visual lepe are full to confrontation. Extraocular was intact and no nystagmus. No facial weakness. No dysarthria. Motor strength in the uppers appears normal. While in the lowers: Right lower proximally is 3/5 without assistance. Left lower upon picking up thigh she was able to lift knee up which is improvement. Left ankle is 3/5. Left proximal lower extremity is 1-2. , Sensation is normal to touch throughout Reflexes is in the lowers is 0 while the uppers is 2. Some of the work-up during this hospital visit consisted of: TSH: 6.040, free T4: 1.16 B12: 585 HbA1c on 05/06/[address] head is negative for any intracranial process. CT thoracic and lumbar is reported as low degenerative disc space narrowing and spondylosis thoracic spine and lumbar as discussed. Degree of neuroforaminal encroachment as outlined above. MRI of the lumbar is reported as L1-L2 disc extrusion with mild spinal canal stenosis and moderate to severe bilateral neuroforaminal stenosis. Moderate to severe degeneration changes to the spine disc degeneration with associated osteoarthritic changes. CSF: It is clear, colorless, red blood cell is 1204, crenated cells 0, fresh red blood cell is 100, glucose is 92,CSF protein is 75 and the normal is 12-60. CSF culture is no organism seen. - Labs CBC & Chem 7: 10/03/24 07:46 10/03/24 07:46 Labs: Abnormal Lab Results - Last 24 Hours (Table) 10/03/24 Range/Units 07:46 Sodium 134 L (137-145) mmol/L BUN 21 H (7-17) mg/dL Glucose 173 H (74-99) mg/dL Albumin 3.1 L (3.5-5.0) g/dL Microbiology - Last 24 Hours (Table) 09/28/24 13:07 CSF Gram Stain - Final Cerebral Spinal Fluid CSF Culture - Final Assessment and Plan Assessment: 1. 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 CSF is protein is mildly elevated and has nucleated cells of 8 which is not significant but could be due had traumatic tap as well has acute COVID- 19. 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 Elevated troponins, with concern for myocardial infarction 3. Acute COVID-19 4. DM Plan: Patient has a traumatic lumbar puncture and the minimal elevated nucleated cells is not concerning because of the traumatic tap. CSF protein is not drastically elevated for GBS but clinically appears GBS. Today is day #5/5 of IVIG 2g/kg (started on 09/29/2024). Recommend EMG with nerve conduction study of the lowers as an outpatient Regarding her degenerative disc changes in the lumbar patient does not want any surgery therefore orthopedic surgery team consultation is cancelled. I.D is consulted Cardiology is consulted Physical therapy and Occupational Therapy is consulted. Patient will benefit from inpatient therapy. Will defer the rest of medical management to primary and other specialist. Discharge recommend the patient to follow-up with a neurologist as an outpatient within 2 weeks. The plan is discussed with patient. There is no further neurological work-up and recommend to pursue with rehab after her last dose of IVIG. But will follow-up with patient sporadically to assess her condition after her last dose of IVIG. Dr. Romero will resume neurology service A.M. Time with Patient: Less than 30
--- NOTE | 2024-10-03 11:14 | P.PN ---
Subjective Progress Note Date: 10/03/24 Mikki Garcia, is an 89-year-old female who presented to [facility] with a chief complaint of severe bilateral lower extremity weakness, patient presented 1 day prior to this admission to the emergency room with similar complaint of bilateral lower extremity weakness, at that time CT scanni ng of the lumbar spine was done, and did not reveal any acute abnormalities she was discharged to home, however she return to emergency room due to worsening symptoms. She was evaluated in the emergency room vital examination on presentation revealed a temperature of 98.2 pulse 46 respiration 18 blood pressure 148/57 pulse ox 94% on room air Laboratory data reveals a white blood count of 9.9 hemoglobin 14.3 platelet count 426 BUN 23 creatinine 0.78 lactic acid 2.2 troponin level 0.5-5 Testing in the emergency room revealed CT scan of the brain revealed no acute intracranial process, minimal chronic appearing periventricular white matter ischemic changes. Patient was admitted to medical floor for further evaluation and treatment On 09/26/2024 patient is alert and oriented x 3. Patient had elevated temp last night 100.2. Patient is complaining of some abdominal pain reports she has not had a bowel movement in 4 days will order abdomen CT and also blood culture. Chest x-ray COVID-19 and influenza ordered infectious disease services will be consulted. Neurology following at this time recommending possible lumbar puncture for Orly Salamanca patient is currently on a heparin drip for elevated troponins awaiting cardiology input. Patient denies chest pain. Patient denies nausea vomiting or diarrhea. Patient denies any urinary burning or frequency. On 09/27/2024 patient was seen and examined on the medical floor she is alert and oriented x 3 in no apparent distress, yesterday she had elevated temperature no new episodes of fever, no chills no headache or dizziness no chest pain no shortness of breath no cough no nausea or vomiting no abdominal pain no diarrhea no blood in the stools no burning with urination no frequency or urgency, and no hematuria. She is still complaining of severe weakness in bilateral lower extremities Input from neurology and cardiology reviewed, at this time we are awaiting lumbar puncture. Input from infectious disease reviewed, will follow closely. On 09/28/2024 patient is alert and oriented x 3. MRI of the spine has been ordered per neurology services. Patient remains on IV antibiotics Zosyn. Heparin drip has been DC'd per cardiology. Still tentative plans for lumbar puncture. Patient reports some increasing movement to lower extremities. Current vital signs temp 98.2, heart rate 70, respiratory rate 18, blood pressure 146/64 with a pulse ox of 96% on room air. Neurology and infectious disease are consulted and awaiting further input On 09/29/2024 patient is alert and oriented x 3. Patient underwent lumbar puncture yesterday workup for possible Gullian Salamanca. Awaiting further recommendations per neurology services. Patient remains on IV Zosyn patient has slight improvement to lower extremities. White blood cell 11.3. Current vital signs temp 98.2, heart rate 69, respiratory rate 16, blood pressure 151/67 with a pulse ox of 95% on room air. Patient denies chest pain or shortness of breath. Patient denies nausea vomiting or diarrhea. Patient denies any urinary burning or frequency On 09/30/2024 patient was seen and examined on the medical floor, she is alert and oriented x 3 in no apparent distress she reports some improvement in her bilateral lower extremity weakness, otherwise she denies any complaints there is no fever or chills no headache or dizziness no chest pain no shortness of breath no cough no nausea or vomiting no abdominal pain no diarrhea no blood in the stools no burning with urination no frequency or urgency and no hematuria, patient is followed by neurology and infectious disease, she had a lumbar puncture, and 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 On 10/01/2024 patient is alert and oriented x 3 patient is currently on her third day of IVIG. Reports some improvement in bilateral lower extremity weakness. Patient also reporting constipation last bowel movement 3 days ago will add stool softeners. Patient denies chest pain or shortness of breath. Patient denies nausea vomiting or diarrhea. Patient denies any urinary burning or frequency. Patient remains on IV Zosyn. Current vital signs temp 97.8, h eart rate 71, respiratory rate 16, blood pressure 143/69 with a pulse ox of 97% on room air On 10/02/2024 patient is alert and oriented x 3. Patient currently fourth day of IVIG. Patient reports some improvement with lower extremity weakness. Patient remains on IV Zosyn. Current vital signs temp 96.6, heart rate 69, respiratory rate 18, blood pressure 149/65 with a pulse ox of 95% on room air On 10/03/2024, patient was seen and examined on the medical floor she is alert and oriented x 3 in no apparent distress, she reports mild improvement in her lower extremity weakness, otherwise she denies any complaints there is no fever or chills no headache or dizziness no chest pain no shortness of breath no cough no nausea or vomiting no abdominal pain no diarrhea no blood in the stools no bu rning with urination no frequency or urgency and no hematuria. At this time we will continue with current medication management, will follow in a.m.. Objective - Vital Signs Vital signs: Vital Signs Temp 99 F 10/03/24 08:10 Pulse 73 10/03/24 08:10 Resp 18 10/03/24 08:10 BP 143/66 10/03/24 08:10 Pulse Ox 96 10/03/24 08:10 FiO2 Intake & Output 10/02/24 10/03/24 10/03/24 18:59 06:59 18:59 Intake Total 497.5 10 Output Total 700 1300 Balance -202.5 -1290 Intake: IV 10 Invasive Line 2 10 Intake, IV Titration 17.5 Amount Immune Globulin ( 17.5 Gammagard) 20 gm In Empty Bag 1 bag @ Per Protocol IV .Q0M ONE Rx#: [id number] Oral 480 Output: Urine 700 1300 Other: Voiding Method External Catheter External Catheter External Catheter - Exam In general patient is alert and oriented x 3 in no distress HEENT head normocephalic and atraumatic Neck is supple no JVD no goiter no lymphadenopathy no carotid bruit Chest examination is clear to auscultation no crackles no wheezing Cardiac exam reveals regular heart sounds S1 and S2 no gallops no murmurs Abdomen is soft nontender no organomegaly with normal bowel sounds Extremity exam reveals no edema no cyanosis or clubbing Neurological examination reveals significant bilateral lower extremity weakness left worse than right. - Labs CBC & Chem 7: 10/03/24 07:46 10/03/24 07:46 Labs: Abnormal Lab Results - Last 24 Hours (Table) 10/03/24 Range/Units 07:46 Sodium 134 L (137-145) mmol/L BUN 21 H (7-17) mg/dL Glucose 173 H (74-99) mg/dL Albumin 3.1 L (3.5-5.0) g/dL Microbiology - Last 24 Hours (Table) 09/28/24 13:07 CSF Gram Stain - Final Cerebral Spinal Fluid CSF Culture - Final Assessment and Plan Plan: Severe bilateral lower extremity weakness Elevated troponin level on presentation Bradycardia on presentation Lactic acidosis Febrile. Recent history of osteomyelitis of the right foot Recent history of acute COVID-19 infection Underlying history of diabetes mellitus type 2, with poor control, last hemoglobin A1c was 11.2 Underlying history of hypothyroidism Underlying history of hypertension Underlying history of hyperlipidemia Underlying history of coronary artery disease At this time patient will be admitted to medical floor She was started on IV heparin in the emergency room due to elevated troponin level Cardiology consultation and neurology consultation were requested in the emergency room Home medication reviewed and reordered At this time will discontinue metformin due to lactic acidosis and discontinue statin due to severe lower extremity weakness, will discontinue beta-jaime due to bradycardia Status post lumbar puncture Patient has been started on IVIG Will follow closely
[2024-10-03] MEDS: NA PHOS,M-B/NA PHOS,DI-BA 133 ML ENEMA RECTAL ONE (11:29)
[2024-10-03] MEDS: IMMUNE GLOBULIN (GAMMAGARD) 20 GM in EMPTY BAG 1 BAG IV ONE (15:23)
--- NOTE | 2024-10-03 20:52 | P.PN ---
Subjective Progress Note Date: 10/03/24 Principal diagnosis: Reason for follow-up is fever and leukocytosis This is a telehealth visit Patient is a 89-year-old female past medical history significant for coronary artery disease hypertension hyperlipidemia, presenting to the hospital for evaluation of getting weaker, patient also have a low-grade fever and elevated white count probably this consultation. On today's evaluation that is 10/03/2024, the patient continues to be afebrile, the patient is on room air and breathing comfortably, the Pt denies having any chest pain or cough, the patient denies having any abdominal pain no vomiting, still complaining of constipation no bowel movement for the last few days. Patient white count 7.2, creatinine 0.75 blood and CSF cultures so far negative Objective - Vital Signs Vital signs: Vital Signs Temp 99 F 10/03/24 08:10 Pulse 73 10/03/24 08:10 Resp 18 10/03/24 08:10 BP 143/66 10/03/24 08:10 Pulse Ox 96 10/03/24 08:10 FiO2 Intake & Output 10/02/24 10/03/24 10/03/24 18:59 06:59 18:59 Intake Total 497.5 10 Output Total 700 1300 Balance -202.5 -1290 Intake: IV 10 Invasive Line 2 10 Intake, IV Titration 17.5 Amount Immune Globulin ( 17.5 Gammagard) 20 gm In Empty Bag 1 bag @ Per Protocol IV .Q0M ONE Rx#: [id number] Oral 480 Output: Urine 700 1300 Other: Voiding Method External Catheter External Catheter External Catheter - Exam Elderly female up in the bed in no distress No tachypnea or accessory muscle respiration use Unlabored breathing - Labs CBC & Chem 7: 10/03/24 07:46 10/03/24 07:46 Labs: Abnormal Lab Results - Last 24 Hours (Table) 10/03/24 Range/Units 07:46 Sodium 134 L (137-145) mmol/L BUN 21 H (7-17) mg/dL Glucose 173 H (74-99) mg/dL Albumin 3.1 L (3.5-5.0) g/dL Microbiology - Last 24 Hours (Table) 09/28/24 13:07 CSF Gram Stain - Final Cerebral Spinal Fluid CSF Culture - Final Assessment and Plan (1) Fever Current Visit: Yes Status: Acute Code(s): R50.9 - FEVER, UNSPECIFIED SNOMED Code(s): 931638058 (2) Leukocytosis Current Visit: Yes Status: Acute Code(s): D72.829 - ELEVATED WHITE BLOOD CELL COUNT, UNSPECIFIED SNOMED Code(s): 596342870 (3) COVID-19 Current Visit: Yes Status: Acute Code(s): U07.1 - COVID-19 SNOMED Code(s): 083391796 Plan: 1patient with elevated white count in this patient presenting to the hospital with weakness also complaining of significant constipation with no bowel movement over the last 5 days attributing it to the pain medication she has received for her lower extremity pain she did have some distention but no significant tenderness unfortunately the patient did have CT of abdominal pelvis completed today that was done without oral contrast limiting the sensitivity patient also have low-grade fever possible sources is abdominal. 2patient also tested positive for COVID-19 however chest x-ray was negative for acute infiltrate patient not hypoxic may be contributing some of her weakness but with no evidence of pneumonia or hypoxemia, treatment will be mostly supportive 3-patient repeat CT abdominal pelvis did shows evidence of proctitis, 4- patient remains to be febrile and white count normalized, patient to continue with Zosyn while inpatient and will transition to oral antibiotics on discharge Dictation was produced using [employer] dictation software. please excuse any grammatical, word or spelling errors. Time with Patient: Less than 30
--- NOTE | 2024-10-04 12:44 | P.PN ---
Subjective Progress Note Date: 10/04/24 Principal diagnosis: Reason for follow-up is fever and leukocytosis Patient is a 89-year-old female past medical history significant for coronary artery disease hypertension hyperlipidemia, presenting to the hospital for evaluation of getting weaker, patient also have a low-grade fever and elevated white count probably this consultation. On today's evaluation that is 10/04/2024, Patient is afebrile patient is currently on room air and denies having any shortness of breath, the patient denies any chest pain or cough, the patient denies any nausea vomiting did not have any abdominal pain and did have a bowel movement yesterday mention did have more movement in the left lower extremity. No new labs has been obtained today normal as of yesterday Objective - Vital Signs Vital signs: Vital Signs Temp 98.4 F 10/04/24 08:00 Pulse 70 10/04/24 08:00 Resp 16 10/04/24 08:00 BP 159/70 10/04/24 08:00 Pulse Ox 96 10/04/24 08:00 FiO2 Intake & Output 10/03/24 10/04/24 10/04/24 18:59 06:59 18:59 Intake Total 720 120 Output Total 900 750 Balance -180 -750 120 Intake: Oral 720 120 Output: Urine 900 750 Other: Voiding Method External Catheter External Catheter External Catheter # Voids 1 # Bowel Movements 1 0 - Exam GENERAL DESCRIPTION: An elderly female lying in bed in no distress RESPIRATORY SYSTEM: Unlabored breathing , decreased breath sounds at bases HEART: S1 S2 regular rate and rhythm , ABDOMEN: Soft , no tenderness EXTREMITIES: No edema feet - Labs CBC & Chem 7: 10/03/24 07:46 10/03/24 07:46 Assessment and Plan (1) Fever Current Visit: Yes Status: Acute Code(s): R50.9 - FEVER, UNSPECIFIED SNOMED Code(s): 058197239 (2) Leukocytosis Current Visit: Yes Status: Acute Code(s): D72.829 - ELEVATED WHITE BLOOD CELL COUNT, UNSPECIFIED SNOMED Code(s): 994798304 (3) COVID-19 Current Visit: Yes Status: Acute Code(s): U07.1 - COVID-19 SNOMED Code(s): 301110248 Plan: 1patient with elevated white count in this patient presenting to the hospital with weakness also complaining of significant constipation with no bowel movement over the last 5 days attributing it to the pain medication she has received for her lower extremity pain she did have some distention but no significant tenderness unfortunately the patient did have CT of abdominal pelvis completed today that was done without oral contrast limiting the sensitivity patient also have low-grade fever possible sources is abdominal. 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 Family at bedside questions answered Dictation was produced using [employer] dictation software. please excuse any grammatical, word or spelling errors. Time with Patient: Less than 30
--- NOTE | 2024-10-04 14:52 | US ---
EXAMINATION TYPE: US venous doppler duplex LE LT DATE OF EXAM: 10/04/2024 2:34 PM COMPARISON: US 09/25/2024 CLINICAL INDICATION: Female, 89 years old with history of Possible DVT; Patient states she is on a bl ood thinner., TECHNIQUE: The lower extremity deep venous system is examined utilizing real time linear array sonog emely with graded compression, color doppler sonography, and spectral doppler. SIDE PERFORMED: Left FINDINGS: VESSELS IMAGED: Common Femoral Vein Deep Femoral Vein Greater Saphenous Vein * Femoral Vein Popliteal Vein Small Saphenous Vein * Proximal Calf Veins (* superficial vessels) Left Leg: No evidence of DVT, Color Doppler imaging shows patency of the vessels. Spectral waveforms are within normal limits. Unable to visualize PTV or peroneal veins at calf/ankle. Anechoic fluid-appearing area seen incidentally, within the medial/anterior knee area = 11.0 x 8.8 x 2.0 cm. IMPRESSION: The deep venous system of the left lower extremity from the common femoral vein to the proximal calf veins is patent and compressible and augmentable flow. There is no evidence of DVT. There is a modera te to large left knee joint effusion. [facility], , 10/04/2024 2:50 PM
[2024-10-04] MEDS: DICLOFENAC SODIUM GEL 50 GM TUBE TOPICAL SCH (16:24)
--- NOTE | 2024-10-04 17:18 | P.PN ---
Subjective Progress Note Date: 10/04/24 Mikki Garcia, is an 89-year-old female who presented to [facility] with a chief complaint of severe bilateral lower extremity weakness, patient presented 1 day prior to this admission to the emergency room with similar complaint of bilateral lower extremity weakness, at that time CT scanni ng of the lumbar spine was done, and did not reveal any acute abnormalities she was discharged to home, however she return to emergency room due to worsening symptoms. She was evaluated in the emergency room vital examination on presentation revealed a temperature of 98.2 pulse 46 respiration 18 blood pressure 148/57 pulse ox 94% on room air Laboratory data reveals a white blood count of 9.9 hemoglobin 14.3 platelet count 426 BUN 23 creatinine 0.78 lactic acid 2.2 troponin level 0.5-5 Testing in the emergency room revealed CT scan of the brain revealed no acute intracranial process, minimal chronic appearing periventricular white matter ischemic changes. Patient was admitted to medical floor for further evaluation and treatment On 09/26/2024 patient is alert and oriented x 3. Patient had elevated temp last night 100.2. Patient is complaining of some abdominal pain reports she has not had a bowel movement in 4 days will order abdomen CT and also blood culture. Chest x-ray COVID-19 and influenza ordered infectious disease services will be consulted. Neurology following at this time recommending possible lumbar puncture for Orly Salamanca patient is currently on a heparin drip for elevated troponins awaiting cardiology input. Patient denies chest pain. Patient denies nausea vomiting or diarrhea. Patient denies any urinary burning or frequency. On 09/27/2024 patient was seen and examined on the medical floor she is alert and oriented x 3 in no apparent distress, yesterday she had elevated temperature no new episodes of fever, no chills no headache or dizziness no chest pain no shortness of breath no cough no nausea or vomiting no abdominal pain no diarrhea no blood in the stools no burning with urination no frequency or urgency, and no hematuria. She is still complaining of severe weakness in bilateral lower extremities Input from neurology and cardiology reviewed, at this time we are awaiting lumbar puncture. Input from infectious disease reviewed, will follow closely. On 09/28/2024 patient is alert and oriented x 3. MRI of the spine has been ordered per neurology services. Patient remains on IV antibiotics Zosyn. Heparin drip has been DC'd per cardiology. Still tentative plans for lumbar puncture. Patient reports some increasing movement to lower extremities. Current vital signs temp 98.2, heart rate 70, respiratory rate 18, blood pressure 146/64 with a pulse ox of 96% on room air. Neurology and infectious disease are consulted and awaiting further input On 09/29/2024 patient is alert and oriented x 3. Patient underwent lumbar puncture yesterday workup for possible Gullian Salamanca. Awaiting further recommendations per neurology services. Patient remains on IV Zosyn patient has slight improvement to lower extremities. White blood cell 11.3. Current vital signs temp 98.2, heart rate 69, respiratory rate 16, blood pressure 151/67 with a pulse ox of 95% on room air. Patient denies chest pain or shortness of breath. Patient denies nausea vomiting or diarrhea. Patient denies any urinary burning or frequency On 09/30/2024 patient was seen and examined on the medical floor, she is alert and oriented x 3 in no apparent distress she reports some improvement in her bilateral lower extremity weakness, otherwise she denies any complaints there is no fever or chills no headache or dizziness no chest pain no shortness of breath no cough no nausea or vomiting no abdominal pain no diarrhea no blood in the stools no burning with urination no frequency or urgency and no hematuria, patient is followed by neurology and infectious disease, she had a lumbar puncture, and 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 On 10/01/2024 patient is alert and oriented x 3 patient is currently on her third day of IVIG. Reports some improvement in bilateral lower extremity weakness. Patient also reporting constipation last bowel movement 3 days ago will add stool softeners. Patient denies chest pain or shortness of breath. Patient denies nausea vomiting or diarrhea. Patient denies any urinary burning or frequency. Patient remains on IV Zosyn. Current vital signs temp 97.8, h eart rate 71, respiratory rate 16, blood pressure 143/69 with a pulse ox of 97% on room air On 10/02/2024 patient is alert and oriented x 3. Patient currently fourth day of IVIG. Patient reports some improvement with lower extremity weakness. Patient remains on IV Zosyn. Current vital signs temp 96.6, heart rate 69, respiratory rate 18, blood pressure 149/65 with a pulse ox of 95% on room air On 10/03/2024, patient was seen and examined on the medical floor she is alert and oriented x 3 in no apparent distress, she reports mild improvement in her lower extremity weakness, otherwise she denies any complaints there is no fever or chills no headache or dizziness no chest pain no shortness of breath no cough no nausea or vomiting no abdominal pain no diarrhea no blood in the stools no bu rning with urination no frequency or urgency and no hematuria. At this time we will continue with current medication management, will follow in a.m.. On 10/04/2024 patient was seen and examined on the medical floor she is alert and oriented x 3 in no apparent distress she is complaining of left lower extremity pain and difficulty moving her left lower extremity more than the right, left lower extremity Doppler was done today and was negative for any evidence of DVT, there was evidence of large left knee effusion, consultation for orthopedic surgery was initiated, otherwise patient denies any complaints there is no fever or chills no headache or dizziness no chest pain no shortness of breath no cough no nausea or vomiting no abdominal pain no diarrhea no urinary symptoms Objective - Vital Signs Vital signs: Vital Signs Temp 98.3 F 10/04/24 16:26 Pulse 84 10/04/24 16:26 Resp 16 10/04/24 16:26 BP 146/64 10/04/24 16:26 Pulse Ox 96 10/04/24 16:26 FiO2 Intake & Output 10/03/24 10/04/24 10/04/24 18:59 06:59 18:59 Intake Total 720 240 Output Total 900 750 Balance -180 -750 240 Intake: Oral 720 240 Output: Urine 900 750 Other: Voiding Method External Catheter External Catheter External Catheter # Voids 1 # Bowel Movements 1 0 - Exam In general patient is alert and oriented x 3 in no distress HEENT head normocephalic and atraumatic Neck is supple no JVD no goiter no lymphadenopathy no carotid bruit Chest examination is clear to auscultation no crackles no wheezing Cardiac exam reveals regular heart sounds S1 and S2 no gallops no murmurs Abdomen is soft nontender no organomegaly with normal bowel sounds Extremity exam reveals no edema no cyanosis or clubbing Neurological examination reveals significant bilateral lower extremity weakness left worse than right. - Labs CBC & Chem 7: 10/03/24 07:46 11/24/24 07:46 Assessment and Plan Plan: Severe bilateral lower extremity weakness Elevated troponin level on presentation Bradycardia on presentation Lactic acidosis Febrile. Recent history of osteomyelitis of the right foot Recent history of acute COVID-19 infection Underlying history of diabetes mellitus type 2, with poor control, last hemoglobin A1c was 11.2 Underlying history of hypothyroidism Underlying history of hypertension Underlying history of hyperlipidemia Underlying history of coronary artery disease At this time patient will be admitted to medical floor She was started on IV heparin in the emergency room due to elevated troponin level Cardiology consultation and neurology consultation were requested in the emergency room Home medication reviewed and reordered At this time will discontinue metformin due to lactic acidosis and discontinue statin due to severe lower extremity weakness, will discontinue beta-jaime due to bradycardia Status post lumbar puncture Patient has been started on IVIG Will follow closely
--- NOTE | 2024-10-05 10:21 | P.PN ---
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 Moe is an 89-year-old female with history of coronary artery disease, hearing difficulty, ocular disorder, hyperlipidemia, hypertension, history of right cataracts as well as glaucoma. She was admitted to [facility] on September 25 with complaints of bilateral lower extremity weakness greater left greater than right. She had had a previous medical history of COVID as well as increased lactate troponins. 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 She underwent an MRI of the lumbar spine on September 28, showing L1 and L2 disc extrusion with mild canal stenosis as well as bilateral neuroforaminal stenosis of a moderate to severe nature and degenerative joint disease. At her last neuro examination prior to my arrival on October 03 she had received 5 days of IVIG and reported some increased movement in her lower extremities. She had right hip flexor 3 out of 5 and left knee was able to raise moderately with still with decreased reflexes 0 out of 5 in her knees. Lumbar puncture performed on September 28 reveals mildly elevated white count of 8, however this was in the setting of significant red blood cells. 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 Today, the patient reports that she is still significantly weak in her lower extremities. She is able to move her right leg greater than her left and can wiggle her toes fairly well bilaterally. She is awaiting transfer to halfway facility for rehab management. She has received 5 out of 5 days of of IVIG. Exam: Cranial nerves II out of XII are intact bilaterally. She has some 5 out of 5 strength in her upper extremities without evidence of pronator drift or arm rolling deficit. Her lower extremities reveal approximately 3 out of 5 strength in her right hip she is able to her. She is able to raise her right hip approximately 1 inch above the bed but cannot hold in the area if this is lifted higher. With the right left lower extremity she is not able to raise this but is able to flex somewhat at the knee with strength 1-2 out of 5. Her toes will wiggle equally bilaterally. Reflex examination revealed 0 out of 5 reflexes in the lower extremities with trace to 1+ reflexes in the upper extremities. Conclusion: Ms. Quinteros is an 89-year-old female who presented status post acute onset of bilateral lower extremity weakness in the setting of pain. Her MRI did not reveal any evidence of transverse myelitis. 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 Plan: 1. Patient is awaiting rehab placement at this time. 2. Neurology will continue to follow her on an intermittent basis however she is appears stable for discharge per neurology. Objective - Vital Signs Vital signs: Vital Signs Temp 98.6 F 10/04/24 19:33 Pulse 78 10/05/24 04:00 Resp 14 10/05/24 04:00 BP 154/69 10/05/24 04:00 Pulse Ox 92 L 10/05/24 04:00 FiO2 Intake & Output 10/04/24 10/05/24 10/05/24 18:59 06:59 18:59 Intake Total 360 20 200 Output Total 300 Balance 360 -280 200 Intake: IV 20 Invasive Line 5 20 Oral 360 200 Output: Urine 300 Other: Voiding Method External Catheter External Catheter # Voids 1 # Bowel Movements 0 - Labs CBC & Chem 7: 10/03/24 07:46 10/03/24 07:46
--- NOTE | 2024-10-05 10:23 | XR ---
EXAMINATION TYPE: XR knee complete LT DATE OF EXAM: 10/05/2024 10:08 AM INDICATION: Patient age:Female; 89 years old; Reason for study: knee swelling/pain; PHH. COMPARISON: None. TECHNIQUE: The Left knee(s) was examined in Frontal, lateral and oblique projections. FINDINGS: No acute fracture or dislocation. Tricompartmental joint space narrowing with marginal sp urring. Most pronounced involving the medial tibiofemoral joint space. Small supra patellar joint eff usion. Chondrocalcinosis is identified involving both menisci. IMPRESSION: 1. No acute osseous pathology. 2. 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 3. Chondrocalcinosis. 4. Small subpatellar joint effusion. [facility], , 10/05/2024 10:20 AM
--- NOTE | 2024-10-05 10:41 | P.PN ---
Subjective Progress Note Date: 10/05/24 Mikki Garcia, is an 89-year-old female who presented to [facility] with a chief complaint of severe bilateral lower extremity weakness, patient presented 1 day prior to this admission to the emergency room with similar complaint of bilateral lower extremity weakness, at that time CT scanni ng of the lumbar spine was done, and did not reveal any acute abnormalities she was discharged to home, however she return to emergency room due to worsening symptoms. She was evaluated in the emergency room vital examination on presentation revealed a temperature of 98.2 pulse 46 respiration 18 blood pressure 148/57 pulse ox 94% on room air Laboratory data reveals a white blood count of 9.9 hemoglobin 14.3 platelet count 426 BUN 23 creatinine 0.78 lactic acid 2.2 troponin level 0.5-5 Testing in the emergency room revealed CT scan of the brain revealed no acute intracranial process, minimal chronic appearing periventricular white matter ischemic changes. Patient was admitted to medical floor for further evaluation and treatment On 09/26/2024 patient is alert and oriented x 3. Patient had elevated temp last night 100.2. Patient is complaining of some abdominal pain reports she has not had a bowel movement in 4 days will order abdomen CT and also blood culture. Chest x-ray COVID-19 and influenza ordered infectious disease services will be consulted. Neurology following at this time recommending possible lumbar puncture for Orly Salamanca patient is currently on a heparin drip for elevated troponins awaiting cardiology input. Patient denies chest pain. Patient denies nausea vomiting or diarrhea. Patient denies any urinary burning or frequency. On 09/27/2024 patient was seen and examined on the medical floor she is alert and oriented x 3 in no apparent distress, yesterday she had elevated temperature no new episodes of fever, no chills no headache or dizziness no chest pain no shortness of breath no cough no nausea or vomiting no abdominal pain no diarrhea no blood in the stools no burning with urination no frequency or urgency, and no hematuria. She is still complaining of severe weakness in bilateral lower extremities Input from neurology and cardiology reviewed, at this time we are awaiting lumbar puncture. Input from infectious disease reviewed, will follow closely. On 09/28/2024 patient is alert and oriented x 3. MRI of the spine has been ordered per neurology services. Patient remains on IV antibiotics Zosyn. Heparin drip has been DC'd per cardiology. Still tentative plans for lumbar puncture. Patient reports some increasing movement to lower extremities. Current vital signs temp 98.2, heart rate 70, respiratory rate 18, blood pressure 146/64 with a pulse ox of 96% on room air. Neurology and infectious disease are consulted and awaiting further input On 09/29/2024 patient is alert and oriented x 3. Patient underwent lumbar puncture yesterday workup for possible Gullian Salamanca. Awaiting further recommendations per neurology services. Patient remains on IV Zosyn patient has slight improvement to lower extremities. White blood cell 11.3. Current vital signs temp 98.2, heart rate 69, respiratory rate 16, blood pressure 151/67 with a pulse ox of 95% on room air. Patient denies chest pain or shortness of breath. Patient denies nausea vomiting or diarrhea. Patient denies any urinary burning or frequency On 09/30/2024 patient was seen and examined on the medical floor, she is alert and oriented x 3 in no apparent distress she reports some improvement in her bilateral lower extremity weakness, otherwise she denies any complaints there is no fever or chills no headache or dizziness no chest pain no shortness of breath no cough no nausea or vomiting no abdominal pain no diarrhea no blood in the stools no burning with urination no frequency or urgency and no hematuria, patient is followed by neurology and infectious disease, she had a lumbar puncture, and 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 On 10/01/2024 patient is alert and oriented x 3 patient is currently on her third day of IVIG. Reports some improvement in bilateral lower extremity weakness. Patient also reporting constipation last bowel movement 3 days ago will add stool softeners. Patient denies chest pain or shortness of breath. Patient denies nausea vomiting or diarrhea. Patient denies any urinary burning or frequency. Patient remains on IV Zosyn. Current vital signs temp 97.8, h eart rate 71, respiratory rate 16, blood pressure 143/69 with a pulse ox of 97% on room air On 10/02/2024 patient is alert and oriented x 3. Patient currently fourth day of IVIG. Patient reports some improvement with lower extremity weakness. Patient remains on IV Zosyn. Current vital signs temp 96.6, heart rate 69, respiratory rate 18, blood pressure 149/65 with a pulse ox of 95% on room air On 10/03/2024, patient was seen and examined on the medical floor she is alert and oriented x 3 in no apparent distress, she reports mild improvement in her lower extremity weakness, otherwise she denies any complaints there is no fever or chills no headache or dizziness no chest pain no shortness of breath no cough no nausea or vomiting no abdominal pain no diarrhea no blood in the stools no bu rning with urination no frequency or urgency and no hematuria. At this time we will continue with current medication management, will follow in a.m.. On 10/04/2024 patient was seen and examined on the medical floor she is alert and oriented x 3 in no apparent distress she is complaining of left lower extremity pain and difficulty moving her left lower extremity more than the right, left lower extremity Doppler was done today and was negative for any evidence of DVT, there was evidence of large left knee effusion, consultation for orthopedic surgery was initiated, otherwise patient denies any complaints there is no fever or chills no headache or dizziness no chest pain no shortness of breath no cough no nausea or vomiting no abdominal pain no diarrhea no urinary symptoms On 10/05/2024 patient is alert and oriented x 3 patient still having significant lower extremity weakness. Orthopedic surgeons have been consulted for possible drainage of left knee. Discharge planning also in progress. No further workup per neurology services. Per nursing staff patient did have bowel movement on 10/03/2024 Colace to be ordered today. Patient denies chest pain or shortness of breath. Patient denies nausea vomiting or diarrhea. Patient denies any urinary burning or frequency Objective - Vital Signs Vital signs: Vital Signs Temp 98.6 F 10/04/24 19:33 Pulse 78 10/05/24 04:00 Resp 14 10/05/24 04:00 BP 154/69 10/05/24 04:00 Pulse Ox 92 L 10/05/24 04:00 FiO2 Intake & Output 10/04/24 10/05/24 10/05/24 18:59 06:59 18:59 Intake Total 360 20 200 Output Total 300 Balance 360 -280 200 Intake: IV 20 Invasive Line 5 20 Oral 360 200 Output: Urine 300 Other: Voiding Method External Catheter External Catheter # Voids 1 # Bowel Movements 0 - Exam In general patient is alert and oriented x 3 in no distress HEENT head normocephalic and atraumatic Neck is supple no JVD no goiter no lymphadenopathy no carotid bruit Chest examination is clear to auscultation no crackles no wheezing Cardiac exam reveals regular heart sounds S1 and S2 no gallops no murmurs Abdomen is soft nontender no organomegaly with normal bowel sounds Extremity exam reveals no edema no cyanosis or clubbing Neurological examination reveals significant bilateral lower extremity weakness left worse than right. - Labs CBC & Chem 7: 10/03/24 07:46 10/03/24 07:46 Assessment and Plan Plan: Severe bilateral lower extremity weakness Elevated troponin level on presentation Bradycardia on presentation Lactic acidosis Febrile. Recent history of osteomyelitis of the right foot Recent history of acute COVID-19 infection Underlying history of diabetes mellitus type 2, with poor control, last hemoglobin A1c was 11.2 Underlying history of hypothyroidism Underlying history of hypertension Underlying history of hyperlipidemia Underlying history of coronary artery disease At this time patient will be admitted to medical floor She was started on IV heparin in the emergency room due to elevated troponin level Cardiology consultation and neurology consultation were requested in the emergency room Home medication reviewed and reordered At this time will discontinue metformin due to lactic acidosis and discontinue statin due to severe lower extremity weakness, will discontinue beta-jaime due to bradycardia Status post lumbar puncture Patient has been started on IVIG Will follow closely
[2024-10-05] MEDS: PANTOPRAZOLE 40 MG TABLET PO SCH (12:09)
--- NOTE | 2024-10-05 13:21 | P.PN ---
Subjective Progress Note Date: 10/05/24 Principal diagnosis: Reason for follow-up is fever and leukocytosis Patient is a 89-year-old female past medical history significant for coronary artery disease hypertension hyperlipidemia, presenting to the hospital for evaluation of getting weaker, patient also have a low-grade fever and elevated white count probably this consultation. On today's evaluation that is 10/05/2024, patient has been afebrile, patient is breathing comfortably and is currently on room air, patient denies having any significant cough no chest pain, patient denies nausea vomiting or abdominal pain some improvement to the mobility of the lower extremity. No new lab has been obtained today Objective - Vital Signs Vital signs: Vital Signs Temp 98.6 F 10/04/24 19:33 Pulse 78 10/05/24 08:20 Resp 16 10/05/24 08:20 BP 167/73 10/05/24 08:20 Pulse Ox 99 10/05/24 08:20 FiO2 Intake & Output 10/04/24 10/05/24 10/05/24 18:59 06:59 18:59 Intake Total 360 20 200 Output Total 300 Balance 360 -280 200 Intake: IV 20 Invasive Line 5 20 Oral 360 200 Output: Urine 300 Other: Voiding Method External Catheter External Catheter External Catheter # Voids 1 # Bowel Movements 0 - Exam GENERAL DESCRIPTION: An elderly female lying in bed in no distress RESPIRATORY SYSTEM: Unlabored breathing , decreased breath sounds at bases HEART: S1 S2 regular rate and rhythm , ABDOMEN: Soft , no tenderness EXTREMITIES: No edema feet - Labs CBC & Chem 7: 10/03/24 07:46 10/03/24 07:46 Assessment and Plan (1) Fever Current Visit: Yes Status: Acute Code(s): R50.9 - FEVER, UNSPECIFIED SNOMED Code(s): 742471689 (2) Leukocytosis Current Visit: Yes Status: Acute Code(s): D72.829 - ELEVATED WHITE BLOOD CELL COUNT, UNSPECIFIED SNOMED Code(s): 175397687 (3) COVID-19 Current Visit: Yes Status: Acute Code(s): U07.1 - COVID-19 SNOMED Code(s): 331962331 Plan: 1patient with elevated white count in this patient presenting to the hospital with weakness also complaining of significant constipation with no bowel movement over the last 5 days attributing it to the pain medication she has received for her lower extremity pain she did have some distention but no significant tenderness unfortunately the patient did have CT of abdominal pelvis completed today that was done without oral contrast limiting the sensitivity patient also have low-grade fever possible sources is abdominal. 2patient also tested positive for COVID-19 however chest x-ray was negative for acute infiltrate patient not hypoxic may be contributing some of her weakness but with no evidence of pneumonia or hypoxemia, treatment will be mostly supportive 3-patient repeat CT abdominal pelvis did shows evidence of proctitis, 4- patient remains to be febrile and white count has been normal culture has been negative so far, continue with Zosyn while inpatient Family at bedside questions answered Dictation was produced using [employer] dictation software. please excuse any grammatical, word or spelling errors. Time with Patient: Less than 30
--- NOTE | 2024-10-05 14:56 | P.CNOR ---
History of Present Illness - [facility] Consult date: 10/05/24 Consult reason: joint pain (Left knee pain) History of present illness: Patient is an 89-year-old female who has been at [facility] for the last 10 days after being admitted and worked up for significant bilateral lower extremity weakness. Patient is being followed by multiple medical specialties at this time, there is concern for Josh Salamanca, she has received 5 days of IVIG. Her hospital stay she has complained of left knee pain, she has been told she had arthritis there before. She has a history of right total knee arthroplasty that was done back in the early in [place]. Our orthopedic team was consulted with regards to the left knee pain. Patient was evaluated today at bedside, one of her daughters was also present. Patient was very pleasant on exam. Patient continues to have bilateral lower extremity weakness, left worse than right. X-rays of the left knee were reviewed, this to include an AP, lateral and oblique views. No acute fractures or dislocations noted. Osteoarthritic findings noted more along the medial joint and patellofemoral joint. Mild joint effusion present. Patient has had a previous aspiration and cortisone injection to the right knee prior to her knee replacement. She has not followed up with an orthopedic surgeon for her left knee. She notes most of the discomfort when attempting to weight-bear, this has been very difficult with the significant weakness in the bilateral lower extremities. Review of Systems Constitutional: Reports as per [facility] Past Medical History Past Medical History: Coronary Artery Disease (CAD), Eye Disorder, Hearing Disorder / Deafness, Hyperlipidemia, Hypertension Additional Past Medical History / Comment(s): rt cataract,rt eye glaucoma History of Any Multi-Drug Resistant Organisms: None Reported Past Surgical History: Heart Catheterization With Stent, Joint Replacement, Orthopedic Surgery Additional Past Surgical History / Comment(s): 1997 or 1998 R carotid endartectomy in [place]. 1997 or 1998 cardiac cath with stenting in [place]. Bilateral hip replacements and total R knee,lt cataract and istent Past Anesthesia/Blood Transfusion Reactions: No Reported Reaction Additional Past Anesthesia/Blood Transfusion Reaction / Comm: no problems with prior blood transfusion Date of Last Stent Placement:: 1997 or 1998 in [place] Past Psychological History: No Psychological Hx Reported Additional Psychological History / Comment(s): Pt lives in her home. Her adult son lives with her. She is independent and performs all her own ADL's. She uses a cane to ambulate. She drives a car. Smoking Status: Never smoker Past Alcohol Use History: None Reported Past Drug Use History: None Reported - Past Family History Father Family Medical History: Myocardial Infarction (NM) Additional Family Medical History / Comment(s): Father at age 62 yrs of NM. Mother Family Medical History: Diabetes Mellitus Additional Family Medical History / Comment(s): Mother of an impacted bowel at age 82 or 83yrs. Medications and Allergies Home Medications Medication Instructions Recorded Confirmed Type Lovastatin [Mevacor] 10 mg PO HS 11/29/14 09/25/24 History atenoloL [Tenormin] 25 mg PO HS 11/29/14 09/25/24 History Levothyroxine Sodium [Synthroid] 50 mcg PO DAILY 09/25/24 09/25/24 History Vitamin D3/Vitamin K2 (Mk4) 1 tab PO DAILY@1200 09/25/24 09/25/24 History [Vitamin K2 Plus D3 Tablet] Allergies Allergy/AdvReac Type Severity Reaction Status Date / Time adhesive Allergy Rash/Hives Verified 09/25/24 11:05 Physical Examination Left lower extremity: There are no open lesions, sores or areas of erythema. Notable effusion on the left knee compared to the right Patient demonstrates mild tenderness with palpation of the medial joint line, s he is nontender to the lower leg, foot or ankle Patient is stable to both varus and valgus force Range of motion was difficult to assess due to the amount of weakness in the extremity. When sitting at bedside, she has a very difficult time with knee extension, she is able . To flex the knee. Plantarflexion, dorsiflexion, EHL, FHL are intact. She is very weak with hip flexion also. Logroll maneuver reproduces no groin pain Patient is a very difficult time with straight leg raise Calf is soft, no tenderness with palpation Sensory exam to light touch is intact throughout the extremity Dorsalis pedis pulses 2+ Results - Labs Labs: H & H 09/25/24 09/26/24 09/27/24 Range/Units 09:04 10:58 07:02 Hgb 14.3 13.3 13.6 (11.4-16.0) gm/dL Hct 45.2 42.2 41.4 (34.0-46.0) % 11/09/29/24 10/02/24 Range/Units 05:45 06:12 08:32 Hgb 12.0 12.1 12.4 (11.4-16.0) gm/dL Hct 37.3 37.7 38.7 (34.0-46.0) % 10/03/24 Range/Units 07:46 Hgb 12.2 (11.4-16.0) gm/dL Hct 37.6 (34.0-46.0) % Coagulation 09/25/24 09/27/24 Range/Units 09:04 12:55 INR 1.0 1.0 (<1.2) Result Diagrams: 10/03/24 07:46 10/03/24 07:46 - Diagnostic results Knee x-ray: report reviewed, image reviewed (AP, lateral and oblique views were reviewed of the left knee. No acute fractures or dislocations appreciated. Mild osteoarthritic changes appreciated to the medial and patellofemoral joint) Assessment and Plan Assessment: Left knee pain Left knee effusion Left knee osteoarthritis Bilateral lower extremity weakness, left worse than right Possible Josh Salamanca disease Multiple medical comorbidities Plan: I was able to discuss the case, this to include physical exam findings and imaging studies my attending Dr. Arana. No emergent orthopedic surgical intervention is recommended at this time I did discuss the possibility of an aspiration with intra-articular cortisone injection, the risk and benefits were discussed with both the patient and the family member. Patient would like to proceed with this. Planning for 10/05/2024, fluid will be sent to lab for analysis Consent will be obtained prior to the procedure Continue with PT/OT GI DVT prophylaxis per primary medical service Other medical specialty recommendations appreciated Further recommendations to follow Time with Patient: Less than 30
[2024-10-05] MEDS: LOSARTAN 50 MG TAB PO SCH (17:26)
[2024-10-06 03:46] LABS: Basophils # (A) 0.1 k/uL (0-0.2); Basophils % (A) 1 %; Eosinophils # (A) 0.3 k/uL (0-0.7); Eosinophils % (A) 4 %; HCT 36.4 % (34.0-46.0); HGB 11.7 gm/dL (11.4-16.0); Lymphocytes % (A) 11 %; MCH 27.3 pg (25.0-35.0); MCHC 32.2 g/dL (31.0-37.0); MCV 84.7 fL (80.0-100.0); Monocytes # (A) 0.5 k/uL (0-1.0); Monocytes % (A) 7 %; Neutrophils # (A) 6.3 k/uL (1.3-7.7); Neutrophils % (A) 75 %; Platelet Count 375 k/uL (150-450); RDW 14.9 % (11.5-15.5); WBC 8.4 k/uL (3.8-10.6)
[2024-10-06 04:12] LABS: ALT 10 U/L (4-34); AST 13 U/L (14-36); African American GFR (CKD) 82 (>60 ml/min/1.73 sqM); Alkaline Phosphatase 63 U/L (38-126); Anion Gap 5 mmol/L; Blood Urea Nitrogen 21 mg/dL (7-17); Calcium 8.7 mg/dL (8.4-10.2); Carbon Dioxide 21 mmol/L (22-30); Chloride 104 mmol/L (98-107); Glucose 175 mg/dL (74-99); Non-African American GFR(CKD) 71 (>60 ml/min/1.73 sqM); Potassium 4.3 mmol/L (3.5-5.1); Sodium 130 mmol/L (137-145); Total Bilirubin 0.6 mg/dL (0.2-1.3); Total Protein 6.2 g/dL (6.3-8.2)
[2024-10-06 07:53] VITALS: RESP 16
--- NOTE | 2024-10-06 11:48 | P.PN ---
Subjective Progress Note Date: 10/06/24 Principal diagnosis: Bilateral lower extremity weakness, left knee osteoarthritis, left knee effusion Patient evaluated at bedside today, her daughter was present once again. Pat ient symptoms remain about the same. She continues to have some knee discomfort. Patient would like to proceed with the aspiration with cortisone injection today at bedside. Consent form was obtained prior to the procedure. Please see procedure note for further description. Objective - Vital Signs Vital signs: Vital Signs Temp 98.6 F 10/06/24 07:08 Pulse 71 10/06/24 07:08 Resp 16 10/06/24 07:08 BP 146/79 10/06/24 07:08 Pulse Ox 95 10/06/24 07:08 FiO2 Intake & Output 10/05/24 10/06/24 10/06/24 18:59 06:59 18:59 Intake Total 700 Output Total 1200 1100 Balance -500 -1100 Weight 128.8 kg Intake: Oral 700 Output: Urine 1200 1100 Stool 0 Other: Voiding Method External Catheter External Catheter External Catheter # Voids 1 - Exam Left lower extremity: There are no open lesions, sores or areas of erythema. Notable effusion on the left knee compared to the right Patient demonstrates mild tenderness with palpation of the medial joint line, she is nontender to the lower leg, foot or ankle Patient is stable to both varus and valgus force Range of motion was difficult to assess due to the amount of weakness in the extremity. When sitting at bedside, she has a very difficult time with knee extension, she is able . To flex the knee. Plantarflexion, dorsiflexion, EHL, FHL are intact. She is very weak with hip flexion also. Logroll maneuver reproduces no groin pain Patient is a very difficult time with straight leg raise Calf is soft, no tenderness with palpation Sensory exam to light touch is intact throughout the extremity Dorsalis pedis pulses 2+ - Labs CBC & Chem 7: 10/06/24 02:54 10/06/24 02:54 Labs: Abnormal Lab Results - Last 24 Hours (Table) 10/05/24 10/06/24 Range/Units 15:11 02:54 Sodium 130 L (137-145) mmol/L Carbon Dioxide 21 L (22-30) mmol/L BUN 21 H (7-17) mg/dL Glucose 175 H (74-99) mg/dL Uric Acid 2.6 L (3.7-7.4) mg/dL AST 13 L (14-36) U/L Total Protein 6.2 L (6.3-8.2) g/dL Albumin 3.0 L (3.5-5.0) g/dL Assessment and Plan Assessment: Left knee pain Left knee effusion Left knee osteoarthritis Bilateral lower extremity weakness, left worse than right Possible Josh Salamanca disease Multiple medical comorbidities Plan: Consent was obtained prior to the procedure, please see procedure note for further detail Left knee joint fluid was sent down to lab for further analysis, this to include cell count, Gram stain, anaerobic, aerobic, fungal, crystals. Will await results Continue with PT/OT GI DVT prophylaxis per primary medical service Other medical specialty recommendations appreciated Will continue to follow
--- NOTE | 2024-10-06 11:51 | P.PCN ---
Date of Procedure: 10/06/24 Preoperative Diagnosis: Left knee effusion, left knee osteoarthritis Postoperative Diagnosis: Same Procedure(s) Performed: Left knee aspiration with cortisone injection Anesthesia: local Surgeon: Ranjeet Ashraf Pathology: none sent Condition: stable Disposition: no change Indications for Procedure: Left knee swelling and pain Description of Procedure: Consent was obtained prior to the procedure. Patient was in the supine position, the knee was prepped with 1 iodine swab and 3 alcohol swabs. A 20-gauge needle was used to inject 3 cc of 1% plain lidocaine via the suprapatellar approach. I then aspirated about 30 cc of normal-appearing serosanguineous joint fluid. After aspiration, I changed syringes and placed 1 cc of 1% plain lidocaine, 1 cc of 0.25% plain Marcaine and 40 mg of Depo-Medrol via the suprapatellar approach. Patient tolerated procedure well. Bandage was then placed. Joint fluid was sent to lab for anaerobic, aerobic, fungal cultures, cell count, synovial crystal analysis. Plan - Discharge Summary Discharge Rx Participant: No New Discharge Prescriptions: No Action Lovastatin [Mevacor] 10 mg PO HS atenoloL [Tenormin] 25 mg PO HS Vitamin D3/Vitamin K2 (Mk4) [Vitamin K2 Plus D3 Tablet] 1 tab PO DAILY@1200 Levothyroxine Sodium [Synthroid] 50 mcg PO DAILY Discharge Medication List Lovastatin [Mevacor] 10 mg PO HS 11/29/14 [History] atenoloL [Tenormin] 25 mg PO HS 11/29/14 [History] Levothyroxine Sodium [Synthroid] 50 mcg PO DAILY 09/25/24 [History] Vitamin D3/Vitamin K2 (Mk4) [Vitamin K2 Plus D3 Tablet] 1 tab PO DAILY@1200 09/25/24 [History] Follow up Appointment(s)/Referral(s): Jean Carlos Mcaky MD [STAFF PHYSICIAN] - 2 Weeks Merissa Hunt MD [Primary Care Provider] - 1-2 days Discharge/Stand Alone Forms: Anes Pain/[facility] Instructions
--- NOTE | 2024-10-06 12:05 | P.DS ---
Providers Date of admission: 09/25/24 11:05 Expected date of discharge: 10/06/24 Attending physician: James Perez Consults: 09/25/24 11:05 Consult Physician Urgent Consulting Provider: [facility] Consult Reason/Comments: NSTEMI, sinus bradycardia Do you want consulting provider notified?: Yes Consult Physician Urgent Consulting Provider: oRsa Smalls Consult Reason/Comments: Bilateral leg weakness Do you want consulting provider notified?: Yes 09/26/24 09:31 Consult Physician Routine Consulting Provider: Stefania Liu Consult Reason/Comments: fever, anastacio lower extremity weakness Do you want consulting provider notified?: Yes 10/04/24 17:12 Consult Physician Routine Consulting Provider: Umesh Arana Consult Reason/Comments: left knee effusion Do you want consulting provider notified?: Yes Primary care physician: Merissa Hunt [facility] Course: Discharge diagnosis Severe bilateral lower extremity weakness secondary to possible myasthenia gravis patient did receive course of IVIG Elevated troponin level on presentation Bradycardia on presentation Lactic acidosis Febrile. Recent history of osteomyelitis of the right foot Recent history of acute COVID-19 infection Underlying history of diabetes mellitus type 2, with poor control, last hemoglobin A1c was 11.2 Underlying history of hypothyroidism Underlying history of hypertension Underlying history of hyperlipidemia Underlying history of coronary artery disease Hospital course Mikki Garcia, is an 89-year-old female who presented to [facility] with a chief complaint of severe bilateral lower extremity weakness, patient presented 1 day prior to this admission to the emergency room with similar complaint of bilateral lower extremity weakness, at that time CT scanning of the lumbar spine was done, and did not reveal any acute abnormalities she was discharged to home, however she return to emergency room due to worsening symptoms. She was evaluated in the emergency room vital examination on presentation revealed a temperature of 98.2 pulse 46 respiration 18 blood pressure 148/57 pulse ox 94% on room air Laboratory data reveals a white blood count of 9.9 hemoglobin 14.3 platelet count 426 BUN 23 creatinine 0.78 lactic acid 2.2 troponin level 0.5-5 Testing in the emergency room revealed CT scan of the brain revealed no acute intracranial process, minimal chronic appearing periventricular white matter ischemic changes. Patient was admitted to medical floor for further evaluation and treatment On 09/26/2024 patient is alert and oriented x 3. Patient had elevated temp last night 100.2. Patient is complaining of some abdominal pain reports she has not had a bowel movement in 4 days will order abdomen CT and also blood culture. Chest x-ray COVID-19 and influenza ordered infectious disease services will be consulted. Neurology following at this time recommending possible lumbar puncture for Gullian Salamanca patient is currently on a heparin drip for elevated troponins awaiting cardiology input. Patient denies chest pain. Patient denies nausea vomiting or diarrhea. Patient denies any urinary burning or frequency. On 09/27/2024 patient was seen and examined on the medical floor she is alert and oriented x 3 in no apparent distress, yesterday she had elevated temperature no new episodes of fever, no chills no headache or dizziness no chest pain no shortness of breath no cough no nausea or vomiting no abdominal pain no diarrhea no blood in the stools no burning with urination no frequency or urgency, and no hematuria. She is still complaining of severe weakness in bilateral lower extremities Input from neurology and cardiology reviewed, at this time we are awaiting lumbar puncture. Input from infectious disease reviewed, will follow closely. On 09/28/2024 patient is alert and oriented x 3. MRI of the spine has been ordered per neurology services. Patient remains on IV antibiotics Zosyn. Heparin drip has been DC'd per cardiology. Still tentative plans for lumbar puncture. Patient reports some increasing movement to lower extremities. Current vital signs temp 98.2, heart rate 70, respiratory rate 18, blood pressure 146/64 with a pulse ox of 96% on room air. Neurology and infectious disease are consulted and awaiting further input On 09/29/2024 patient is alert and oriented x 3. Patient underwent lumbar puncture yesterday workup for possible Gullian Salamanca. Awaiting further recommendations per neurology services. Patient remains on IV Zosyn patient has slight improvement to lower extremities. White blood cell 11.3. Current vital signs temp 98.2, heart rate 69, respiratory rate 16, blood pressure 151/67 with a pulse ox of 95% on room air. Patient denies chest pain or shortness of breath. Patient denies nausea vomiting or diarrhea. Patient denies any urinary burning or frequency On 09/30/2024 patient was seen and examined on the medical floor, she is alert and oriented x 3 in no apparent distress she reports some improvement in her bilateral lower extremity weakness, otherwise she denies any complaints there is no fever or chills no headache or dizziness no chest pain no shortness of breath no cough no nausea or vomiting no abdominal pain no diarrhea no blood in the stools no burning with urination no frequency or urgency and no hematuria, patient is followed by neurology and infectious disease, she had a lumbar puncture, and 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 On 10/01/2024 patient is alert and oriented x 3 patient is currently on her third day of IVIG. Reports some improvement in bilateral lower extremity weakness. Patient also reporting constipation last bowel movement 3 days ago will add stool softeners. Patient denies chest pain or shortness of breath. Patient denies nausea vomiting or diarrhea. Patient denies any urinary burning or frequency. Patient remains on IV Zosyn. Current vital signs temp 97.8, heart rate 71, respiratory rate 16, blood pressure 143/69 with a pulse ox of 97% on room air On 10/02/2024 patient is alert and oriented x 3. Patient currently fourth day of IVIG. Patient reports some improvement with lower extremity weakness. Patient remains on IV Zosyn. Current vital signs temp 96.6, heart rate 69, respiratory rate 18, blood pressure 149/65 with a pulse ox of 95% on room air On 10/03/2024, patient was seen and examined on the medical floor she is alert and oriented x 3 in no apparent distress, she reports mild improvement in her lower extremity weakness, otherwise she denies any complaints there is no fever or chills no headache or dizziness no chest pain no shortness of breath no cough no nausea or vomiting no abdominal pain no diarrhea no blood in the stools no burning with urination no frequency or urgency and no hematuria. At this time we will continue with current medication management, will follow in a.m.. On 10/04/2024 patient was seen and examined on the medical floor she is alert and oriented x 3 in no apparent distress she is complaining of left lower extremity pain and difficulty moving her left lower extremity more than the right, left lower extremity Doppler was done today and was negative for any evidence of DVT, there was evidence of large left knee effusion, consultation for orthopedic surgery was initiated, otherwise patient denies any complaints there is no fever or chills no headache or dizziness no chest pain no shortness of breath no cough no nausea or vomiting no abdominal pain no diarrhea no urinary symptoms On 10/05/2024 patient is alert and oriented x 3 patient still having significant lower extremity weakness. Orthopedic surgeons have been consulted for possible drainage of left knee. Discharge planning also in progress. No further workup per neurology services. Per nursing staff patient did have bowel movement on 10/03/2024 Colace to be ordered today. Patient denies chest pain or shortness of breath. Patient denies nausea vomiting or diarrhea. Patient denies any urinary burning or frequency on 10/06/2024 patient is alert and oriented x 3. Patient did have knee aspirated per orthopedic services. Did discuss case with infectious disease recommend Augmentin 500 for 7 days. At this time patient still complaining of some weakness. Patient denies chest pain or shortness of breath. Patient denies nausea vomiting or diarrhea. Patient denies any urinary burning or frequency patient will be DC'd to [facility] facility in hospital for behavioral medicine follow-up with PCP and consulting providers for further management Patient Condition at Discharge: Stable Plan - Discharge Summary Discharge Rx Participant: No New Discharge Prescriptions: New Aspirin 81 mg PO DAILY 30 Days #30 tab Losartan [Cozaar] 50 mg PO DAILY 30 Days #30 tab amLODIPine [Norvasc] 5 mg PO DAILY 30 Days #30 tab Amoxic-Pot Clav 500-125 mg [Augmentin 500-125 mg] 1 tab PO Q12HR 7 Days #14 tab Docusate [Colace] 100 mg PO DAILY cap Pantoprazole [Protonix] 40 mg PO AC-BRKFST tab Acetaminophen Tab [Tylenol] 650 mg PO Q6HR PRN tab PRN Reason: Fever And/ Or Pain Diclofenac Sodium Gel [Voltaren 1% Gel] 2 gm TOPICAL TID gm Continue Lovastatin [Mevacor] 10 mg PO HS Vitamin D3/Vitamin K2 (Mk4) [Vitamin K2 Plus D3 Tablet] 1 tab PO DAILY@1200 Levothyroxine Sodium [Synthroid] 50 mcg PO DAILY Discontinued atenoloL [Tenormin] 25 mg PO HS Discharge Medication List Lovastatin [Mevacor] 10 mg PO HS 11/29/14 [History] Levothyroxine Sodium [Synthroid] 50 mcg PO DAILY 09/25/24 [History] Vitamin D3/Vitamin K2 (Mk4) [Vitamin K2 Plus D3 Tablet] 1 tab PO DAILY@1200 09/25/24 [History] Acetaminophen Tab [Tylenol] 650 mg PO Q6HR PRN tab 10/06/24 [Rx] Amoxic-Pot Clav 500-125 mg [Augmentin 500-125 mg] 1 tab PO Q12HR 7 Days #14 tab 10/06/24 [Rx] Aspirin 81 mg PO DAILY 30 Days #30 tab 10/06/24 [Rx] Diclofenac Sodium Gel [Voltaren 1% Gel] 2 gm TOPICAL TID gm 10/06/24 [Rx] Docusate [Colace] 100 mg PO DAILY cap 10/06/24 [Rx] Losartan [Cozaar] 50 mg PO DAILY 30 Days #30 tab 10/06/24 [Rx] Pantoprazole [Protonix] 40 mg PO AC-BRKFST tab 10/06/24 [Rx] amLODIPine [Norvasc] 5 mg PO DAILY 30 Days #30 tab 10/06/24 [Rx] Follow up Appointment(s)/Referral(s): Jean Carlos Mckay MD [STAFF PHYSICIAN] - 2 Weeks Merissa Hunt MD [Primary Care Provider] - 1-2 days Discharge/Stand Alone Forms: Anes Pain/Wismer Instructions Discharge Disposition: TRANSFER TO SNF/ECF
[2024-10-06 13:16] LABS: Appearance,BF Hazy; Color,BF Orange
[2024-10-06 13:17] LABS: Nucleated Cells, Body Fluid 294 /uL; RBC, Body Fluid 18800 /uL
[2024-10-06 13:30] LABS: Mononuclear WBC,Body Fluid 45 %; Polynuclear WBC,Body Fluid 55 %; Total Cells Counted,Body Fluid 100
[2024-10-06 14:15] VITALS: BP 139/66; PULSE 77; TEMP 98
[2024-10-06 19:58] LABS: Synovial Fld Crystals None Seen (None Seen)
--- NOTE | 2024-10-07 12:43 | P.PN ---
Subjective Progress Note Date: 10/06/24 Principal diagnosis: Reason for follow-up is fever and leukocytosis Patient is a 89-year-old female past medical history significant for coronary artery disease hypertension hyperlipidemia, presenting to the hospital for evaluation of getting weaker, patient also have a low-grade fever and elevated white count probably this consultation. On today's evaluation that is 10/06/2024, Patient is afebrile this morning patient denies having any chest pain shortness of breath or cough, the patient is currently on room air, patient denies any abdominal pain no diarrhea no nausea no vomiting patient is status post left knee effusion aspiration which was mostly serous as reported by the daughter. Patient white count is 8.4, creatinine 0.75 Objective - Vital Signs Vital signs: Vital Signs Temp 98.6 F 10/06/24 07:08 Pulse 71 10/06/24 07:08 Resp 16 10/06/24 07:08 BP 146/79 10/06/24 07:08 Pulse Ox 95 10/06/24 07:08 FiO2 Intake & Output 10/05/24 10/06/24 10/06/24 18:59 06:59 18:59 Intake Total 700 Output Total 1200 1100 Balance -500 -1100 Weight 128.8 kg Intake: Oral 700 Output: Urine 1200 1100 Stool 0 Other: Voiding Method External Catheter External Catheter External Catheter # Voids 1 - Exam GENERAL DESCRIPTION: An elderly female lying in bed in no distress RESPIRATORY SYSTEM: Unlabored breathing , decreased breath sounds at bases HEART: S1 S2 regular rate and rhythm , ABDOMEN: Soft , no tenderness EXTREMITIES: No edema feet - Labs CBC & Chem 7: 10/06/24 02:54 10/06/24 02:54 Labs: Abnormal Lab Results - Last 24 Hours (Table) 10/05/24 10/06/24 Range/Units 15:11 02:54 Sodium 130 L (137-145) mmol/L Carbon Dioxide 21 L (22-30) mmol/L BUN 21 H (7-17) mg/dL Glucose 175 H (74-99) mg/dL Uric Acid 2.6 L (3.7-7.4) mg/dL AST 13 L (14-36) U/L Total Protein 6.2 L (6.3-8.2) g/dL Albumin 3.0 L (3.5-5.0) g/dL Assessment and Plan (1) Fever Status: Acute Code(s): R50.9 - FEVER, UNSPECIFIED SNOMED Code(s): 207792306 (2) Leukocytosis Status: Acute Code(s): D72.829 - ELEVATED WHITE BLOOD CELL COUNT, UNSPECIFIED SNOMED Code(s): 624766189 (3) COVID-19 Status: Acute Code(s): U07.1 - COVID-19 SNOMED Code(s): 406827800 Plan: 1patient with elevated white count in this patient presenting to the hospital with weakness also complaining of significant constipation with no bowel movement over the last 5 days at the time of initial consultation, attributing it to the pain medication she has received for her lower extremity pain she did have some distention but no significant tenderness unfortunately the patient did have CT of abdominal pelvis completed today that was done without oral contrast limiting the sensitivity patient also have low-grade fever possible sources is abdominal. 2patient also tested positive for COVID-19 however chest x-ray was negative for acute infiltrate patient not hypoxic may be contributing some of her weakness but with no evidence of pneumonia or hypoxemia, treatment will be mostly supportive 3-patient repeat CT abdominal pelvis did shows evidence of proctitis, 4- patient remains to be febrile and white count has been normal culture has been negative so far, patient also have a left knee aspiration fluid not look infected. 5keeping in mind overall improvement on Zosyn consider short course of oral Augmentin on discharge discussed with the [employer] for admitting team working on discharge Dictation was produced using [employer] dictation software. please excuse any gramm atical, word or spelling errors. Time with Patient: Less than 30
== END 2024-10-06 14:48 | DRG 94 ==
LOC: EC 08:40 → 3SCARD 11:05 → 4SSUR 10-05 21:52
PROVIDERS: ADMIT Internal Medicine; ATTEND Internal Medicine
PROC: 009U3ZX Drainage of Spinal Canal, Percutaneous Approach, Diagnostic (ICD-10-PCS; 2024-09-28)
PROC: B01B1ZZ Fluoroscopy of Spinal Cord using Low Osmolar Contrast (ICD-10-PCS; 2024-09-28)
PROC: 30233S1 Transfusion of Nonautologous Globulin into Peripheral Vein, Percutaneous Approach (ICD-10-PCS; 2024-09-28)
PROC: 0S9D3ZX Drainage of Left Knee Joint, Percutaneous Approach, Diagnostic (ICD-10-PCS; principal; 2024-10-06)
DX: G61.0 Guillain-Barre syndrome (principal); I21.4 Non-ST elevation (NSTEMI) myocardial infarction; U07.1 COVID-19; E87.20 Acidosis, unspecified; R00.1 Bradycardia, unspecified; E03.9 Hypothyroidism, unspecified; Z79.890 Hormone replacement therapy; E11.9 Type 2 diabetes mellitus without complications; Z86.16 Personal history of COVID-19; M47.816 Spondylosis without myelopathy or radiculopathy, lumbar region; D72.829 Elevated white blood cell count, unspecified; E78.5 Hyperlipidemia, unspecified; H91.90 Unspecified hearing loss, unspecified ear; I10 Essential (primary) hypertension; I25.10 Atherosclerotic heart disease of native coronary artery without angina pectoris; K59.00 Constipation, unspecified; K62.89 Other specified diseases of anus and rectum; M17.12 Unilateral primary osteoarthritis, left knee; Z79.84 Long term (current) use of oral hypoglycemic drugs; Z79.899 Other long term (current) drug therapy; Z82.49 Family history of ischemic heart disease and other diseases of the circulatory system; Z95.5 Presence of coronary angioplasty implant and graft; Z96.643 Presence of artificial hip joint, bilateral; Z96.651 Presence of right artificial knee joint; Z91.048 Other nonmedicinal substance allergy status; Z96.1 Presence of intraocular lens; Z98.41 Cataract extraction status, right eye
CPT/HCPCS: 36415; 62270; 70450; 71046; 71250; 72128; 72131; 72158; 74176; 80053; 80061; 81001; 82533; 82550; 82607; 82746; 82945; 83605; 83735; 83873; 84157; 84439; 84443; 84484; 84550; 85025; 85610; 85730; 87040; 87070; 87075; 87102; 87205; 87636; 88108; 89050; 89060; 93005; 93306; 93970; 94760; 96365; 96366; 99291